=== PATIENT | female | born 1955 | race Caucasian/White ===

== ENCOUNTER 2020-11-14 15:13 | Outpatient (CLI) | payer OTHER, SELFPAY ==
[2020-11-14 20:00] LABS: Erythrocyte Sedimentation Rate 19 mm/hr (0-20)
== END 2020-11-14 15:14 | disposition home or self-care (01) ==
LOC: ANHBWCLAB 15:14
PROVIDERS: PCP Family Medicine; Visit Provider Family Medicine
DX: R51.9 Headache, unspecified (principal)
CPT/HCPCS: 36415; 85652

== ENCOUNTER 2021-06-04 13:46 | Outpatient (CLI) | payer OTHER, SELFPAY ==
[2021-06-04 19:12] LABS: Basophils Absolute Auto 0.1 K/mm3 (0.0-0.1); Basophils Percent Auto 0.6 % (0.2-1.2); Eosinophils Absolute Auto 0.1 K/mm3 (0-0.3); Eosinophils Percent Auto 1.7 % (0-4.4); Hematocrit 41.6 % (37.0-47.0); Hemoglobin 13.6 g/dL (12.0-15.0); Immature Granulocyte Absolute 0.04 K/mm3 (0.00-0.031); Immature Granulocyte Percent A 0.5 % (0-0.5); Lymphocytes Absolute Auto 2.78 K/mm3 (0.9-3.2); Lymphocytes Percent Auto 34.1 % (18.3-44.2); Mean Corpuscular HGB Conc 32.7 g/dl (32-36); Mean Corpuscular Hemoglobin 31.7 pg (26-34); Mean Platelet Volume 10.6 fl (7.4-10.4); Monocytes Absolute Auto 0.6 K/mm3 (0.1-0.6); Monocytes Percent Auto 7.4 % (2.6-8.5); Neutrophils Absolute Auto 4.6 K/mm3 (1.3-6.7); Neutrophils Percent Auto 55.7 % (45.5-73.1); Platelet Count Result 194 k/mm3 (150-375); Red Blood Count 4.29 M/mm3 (4.2-5.4); Red Cell Distribution Width 12.7 % (11.5-14.5); White Blood Count 8.2 K/mm3 (4.5-10.0)
[2021-06-04 19:24] LABS: Alanine Aminotransferase 21 U/L (4-35); Albumin Level 4.6 g/dL (3.5-5.1); Alkaline Phosphatase 46 U/L (38-126); Anion Gap 10 mmol/L (8-16); Aspartate Amino Transferase 22 U/L (14-36); Bilirubin,Total 0.6 mg/dL (0.2-1.3); Blood Urea Nitrogen 25 mg/dL (7-17); Calcium 10.2 mg/dL (8.4-10.2); Carbon Dioxide 30 mmol/L (22-30); Chloride 101 mmol/L (98-107); Cholesterol 156 mg/dL (0-200); Estimated Glomerular Filt Rate > 60; Glucose 251 mg/dL (65-110); HDL Direct 40 mg/dL; Potassium 4.5 mmol/L (3.4-5.0); Sodium 141 mmol/L (137-145); Triglycerides 158 mg/dL (<150)
[2021-06-04 19:36] LABS: LDL Cholesterol Direct 91 mg/dL
[2021-06-04 20:33] LABS: Hemoglobin A1C 8.5 % (<5.7)
[2021-06-04 20:40] LABS: Creatinine Urine 313.4 mg/dL
[2021-06-04 21:21] LABS: MALB Creatinine Ratio 328.5 mg/g (0-30); Microalbumin Urine Random 1029.5 mg/L (0-16.7)
== END 2021-06-04 13:47 | disposition home or self-care (01) ==
PROVIDERS: PCP Family Medicine; Visit Provider Family Medicine
DX: E11.9 Type 2 diabetes mellitus without complications (principal)
CPT/HCPCS: 36415; 80053; 80061; 82043; 83036; 85025

== ENCOUNTER 2021-12-19 09:32 | Outpatient (CLI) | payer OTHER, SELFPAY ==
[2021-12-19 09:44] LABS: Hematocrit 40.1 % (37.0-47.0); Hemoglobin 12.9 g/dL (12.0-15.0); Mean Corpuscular HGB Conc 32.2 g/dl (32-36); Mean Corpuscular Hemoglobin 31.5 pg (26-34); Mean Corpuscular Volume 97.8 fl (80-100); Platelet Count Result 216 k/mm3 (150-375); Red Cell Distribution Width 14.2 % (11.5-14.5); White Blood Count 11.2 K/mm3 (4.5-10.0)
== END 2021-12-19 09:33 | disposition home or self-care (01) ==
LOC: ANHLAB 09:34
PROVIDERS: PCP Family Medicine; Visit Provider Nurse Practitioner Family
DX: R19.5 Other fecal abnormalities (principal)
CPT/HCPCS: 36415; 85027

== ENCOUNTER 2021-12-22 16:53 | Outpatient (NON) | payer OTHER, SELFPAY ==
[2021-12-22 18:52] LABS: IFOB Positive Control Positive; Immunochemical Fecal Occult Bl Negative (N)
== END 2021-12-22 16:54 | disposition home or self-care (01) ==
LOC: ANHLAB 16:54
PROVIDERS: PCP Family Medicine; Visit Provider Family Medicine
DX: R19.7 Diarrhea, unspecified (principal); K62.5 Hemorrhage of anus and rectum
CPT/HCPCS: 82274; 87045; 87427; 89055

== ENCOUNTER 2022-01-08 13:35 | Outpatient (CLI) | payer OTHER, SELFPAY ==
[2022-01-08 19:31] LABS: Creatinine Urine 70.5 mg/dL
[2022-01-08 19:36] LABS: Alanine Aminotransferase 20 U/L (6-35); Albumin Level 4.6 g/dL (3.5-5.1); Alkaline Phosphatase 57 U/L (38-126); Anion Gap 13 mmol/L (8-16); Aspartate Amino Transferase 19 U/L (14-36); Bilirubin,Total 0.3 mg/dL (0.2-1.3); Blood Urea Nitrogen 19 mg/dL (7-17); Calcium 9.4 mg/dL (8.4-10.2); Carbon Dioxide 22 mmol/L (22-30); Chloride 107 mmol/L (98-107); Cholesterol 163 mg/dL (0-200); Estimated Glomerular Filt Rate > 60; Glucose 166 mg/dL (65-110); HDL Direct 50 mg/dL; Potassium 4.1 mmol/L (3.4-5.0); Sodium 142 mmol/L (137-145); Triglycerides 124 mg/dL (<150)
[2022-01-08 19:39] LABS: Hemoglobin A1C 6.3 % (<5.7)
[2022-01-08 19:40] LABS: MALB Creatinine Ratio 81.6 mg/g (0-30); Microalbumin Urine Random 57.5 mg/L (0-16.7)
[2022-01-08 19:49] LABS: LDL Cholesterol Direct 76 mg/dL
== END 2022-01-08 13:36 | disposition home or self-care (01) ==
PROVIDERS: PCP Family Medicine; Visit Provider Family Medicine
DX: E11.9 Type 2 diabetes mellitus without complications (principal)
CPT/HCPCS: 36415; 80053; 80061; 82043; 83036

== ENCOUNTER 2022-02-09 01:24 | Day surgery (SDC) | payer OTHER, SELFPAY ==
[2022-02-02 14:29] VITALS: BMI 22.8
--- NOTE | 2022-02-02 15:25 | PC.NURSE ---
Spoke with Dr. Pike office regarding patients symptoms and need to hold Plavix. Office states he has released her to hold Plavix, informed her of symptoms pt had told to me and Dr. Valdez note regarding SOB, heart rate increase and feeling of heart flip flopping in chest. Pt states she occ. has chest pain with the SOB, symptoms occurred in grocery store after walking around a fair amt. Office staff will discuss with Dr. Barnes for further guidance or okay to proceed with holding Plavix and doing EGD/COLONOSCOPY.
--- NOTE | 2022-02-03 10:56 | PC.NURSE ---
DR. LEWIS'S OFFICE RETURNED FAX AND MESSAGE THAT IT IS OKAY TO HOLD PLAVIX X4 DAYS AND PROCEED WITH PROCEDURES, PT TO FOLLOW UP WITH HIS OFFICE AFTER PROCEDURE PER DR. LEWIS
[2022-02-09 11:52] VITALS: BP 135/71; PULSE 63; RESP 18; TEMP 36.3; O2SAT 100; BMI 22.1
--- NOTE | 2022-02-09 12:02 | WPDANESEPPF ---
Anes - Initial Pre Proc Eval Procedure: Operation Date: 02/09/22 12:30 Proposed Procedures p Esophagogastroduodenoscopy & Colonoscopy - Lukas Johnson MD Date/Time: 02/09/22 12:02 Surgeon: Lukas Johnson MD Pre Op Diagnosis: GERD, Rectal bleeding Patient Data Age: 66 Gender: F Height: 1.7 m Weight: 64.3 kg Last Vital Signs Temp 36.3 C L 02/09/22 11:52 Pulse 63 02/09/22 11:52 Resp 18 02/09/22 11:52 BP 135/71 02/09/22 11:52 Pulse Ox 100 02/09/22 11:52 O2 Del Method Room Air 02/09/22 11:52 Allergies Allergy/AdvReac Type Severity Reaction Status Date / Time No Known Allergies Allergy Verified 02/09/22 11:51 Home Medications Medication Instructions Recorded Confirmed Type clopidogrel 75 mg tablet (Plavix) 75 mg PO DAILY 12/22/19 02/09/22 History nitroglycerin 0.4 mg sublingual 0.4 mg sublingual Q5M PRN Chest 12/22/19 02/09/22 History tablet Pain blood sugar diagnostic (Blood #100 ea 05/22/20 02/09/22 Rx Glucose Test strips) blood-glucose meter #1 ea 05/22/20 02/09/22 Rx gabapentin 300 mg capsule 300 mg PO .qhs #90 caps 11/05/20 02/09/22 Rx atorvastatin 40 mg tablet 40 mg PO DAILY #90 tabs 07/21/21 02/09/22 Rx sertraline 50 mg tablet 50 mg PO DAILY #90 tabs 08/19/21 02/09/22 Rx hydrocortisone 2.5 % topical cream 1 applic RECTAL BID 10 days #30 12/30/21 02/09/22 Rx with perineal applicator grams famotidine 20 mg tablet (Pepcid) 40 mg PO BID #180 tabs 01/12/22 02/09/22 Rx metformin 500 mg tablet 1,000 mg PO BID #360 tabs 01/24/22 02/09/22 Rx metoprolol succinate 25 mg 25 mg PO DAILY 02/02/22 02/09/22 History tablet,extended release 24 hr topiramate 25 mg tablet 25 - 50 mg PO BID PRN Migraine 02/02/22 02/09/22 History Headache Patient hx anesthesia problems: none Family hx anesthesia problems: none Results Review: All pre-operative results and documents have been reviewed as part of the pre-operative evaluation. [facility] Past Medical History Medical History (Updated 02/09/22 @ 12:03 by Brian Hess MD) Anxiety Benign paroxysmal positional vertigo CAD (coronary artery disease) Depression Diabetes GERD (gastroesophageal reflux disease) Headache, common migraine Heart attack Hyperlipidemia Peripheral neuropathy Uncontrolled diabetes mellitus Surgical History Surgical History H/O bilateral breast reduction surgery H/O heart artery stent H/O toe surgery H/O tubal ligation H/O: hysterectomy History of lobectomy of lung Family History Family History Mother Cancer Father Heart disease Sibling Cancer Other Heart disease Social History Social History Smoking status: Never smoker Alcohol intake: never Substance use: never Substance use type: does not use Living arrangements: with family Gender identity (if verbalized by the patient): Female Spiritual care concerns: No Anes - Eval Final PreProcedure Day of Procedure 02/09/22 12:02 Patient weight: normal Heart: regular rate and rhythm Lungs: clear to auscultation and normal air movement Airway: Mallampati scale class II Neurological: alert and oriented Last oral intake: >/= 8 hours ASA classification: III Emergent: no Anesthetic plan: proceed Anesthesia type and monitoring: general GIVS Results Review: All pre-operative results and documents have been reviewed as part of the pre-operative evaluation. Informed Consent: The patient's anesthetic plan and its attendant risks and benefits were discussed with the patient/family/POA. Questions were solicited and answers provided to the satisfaction of the patient/family/POA.
[2022-02-09] MEDS: LACTATED RINGERS 1,000 ML 150 ML IV CONT (12:08)
[2022-02-09 12:09] LABS: Glucose Point of Care 128 mg/dl (65-105)
--- NOTE | 2022-02-09 12:39 | PM.HPGS ---
History of Present Illness History of Present Illness Consent: Risks, benefits, and alternatives have been discussed and questions answered. Patient agrees to proceed with procedure. Chief complaint: GERD, Rectal bleeding Narrative: Thalia Michelle is a 66 year old female with gerd on tums never had egd, also noted blood in stools (last colonoscopy about 3 years ago) Review of Systems Constitutional: Constitutional: Denies headache(s) and Denies weakness Eyes: Eyes: Denies blurry vision ENT: Reports Normal hearing present, Denies headache(s) and Denies neck pain Cardiovascular: Cardiovascular: Denies chest pain and Denies dyspnea Respiratory: Respiratory: Denies dyspnea Gastrointestinal: Gastrointestinal: Reports no additional gastrointestinal complaints Genitourinary: Genitourinary: Denies dysuria Musculoskeletal: Musculoskeletal: Denies neck pain Integumentary/Breasts: Skin/Breast: Denies dry skin Neurologic: Reports Normal hearing present, Denies headache(s) and Denies weakness Psychiatric: Psychiatric: Denies anxiety Endocrine: Endocrine: Denies change in body appearance Hematologic/Lymphatic: Hematologic/Lymphatic: Denies easy bleeding Allergic/Immunologic: Allergic/Immunologic: Denies urticaria PMFSH Past Medical History Medical History (Updated 02/09/22 @ 12:03 by Brian Hess MD) Anxiety Benign paroxysmal positional vertigo CAD (coronary artery disease) Depression Diabetes GERD (gastroesophageal reflux disease) Headache, common migraine Heart attack Hyperlipidemia Peripheral neuropathy Uncontrolled diabetes mellitus Surgical History Surgical History H/O bilateral breast reduction surgery H/O heart artery stent H/O toe surgery H/O tubal ligation H/O: hysterectomy History of lobectomy of lung Family History Family History Mother Cancer Father Heart disease Sibling Cancer Other Heart disease Social History Social History Smoking status: Never smoker Alcohol intake: never Substance use: never Substance use type: does not use Living arrangements: with family Gender identity (if verbalized by the patient): Female Spiritual care concerns: No Meds Home Medications and Allergies Home Medications Medication Instructions Recorded Confirmed Type clopidogrel 75 mg tablet (Plavix) 75 mg PO DAILY 12/22/19 02/09/22 History nitroglycerin 0.4 mg sublingual 0.4 mg sublingual Q5M PRN Chest 12/22/19 02/09/22 History tablet Pain blood sugar diagnostic (Blood #100 ea 05/22/20 02/09/22 Rx Glucose Test strips) blood-glucose meter #1 ea 05/22/20 02/09/22 Rx gabapentin 300 mg capsule 300 mg PO .qhs #90 caps 11/05/20 02/09/22 Rx atorvastatin 40 mg tablet 40 mg PO DAILY #90 tabs 07/21/21 02/09/22 Rx sertraline 50 mg tablet 50 mg PO DAILY #90 tabs 08/19/21 02/09/22 Rx hydrocortisone 2.5 % topical cream 1 applic RECTAL BID 10 days #30 12/30/21 02/09/22 Rx with perineal applicator grams famotidine 20 mg tablet (Pepcid) 40 mg PO BID #180 tabs 01/12/22 02/09/22 Rx metformin 500 mg tablet 1,000 mg PO BID #360 tabs 01/24/22 02/09/22 Rx metoprolol succinate 25 mg 25 mg PO DAILY 02/02/22 02/09/22 History tablet,extended release 24 hr topiramate 25 mg tablet 25 - 50 mg PO BID PRN Migraine 02/02/22 02/09/22 History Headache Allergies Allergy/AdvReac Type Severity Reaction Status Date / Time No Known Allergies Allergy Verified 02/09/22 11:51 Vital Signs Vital Signs - 24 hr 02/09/22 11:52 Temperature 97.3 F L Pulse Rate 63 Respiratory Rate 18 Blood Pressure 135/71 Pulse Oximetry 100 Oxygen Delivery Room Air Exam Const: General: comfortable and no acute distress HENMT: General nose exam: Normal nares present Eyes: General: appearance normal, both e
--- NOTE | 2022-02-09 13:28 | SUR.OPER ---
EGD START 1254, END 1301. COLONOSCOPY START 1306, END 1326.
[2022-02-09 13:31] VITALS: BP 116/77; PULSE 57; RESP 19; O2SAT 100
[2022-02-09 13:41] VITALS: BP 141/79; PULSE 78; RESP 20; O2SAT 100
[2022-02-09 13:51] VITALS: BP 157/84; PULSE 78; RESP 20; O2SAT 100
== END 2022-02-09 14:00 | disposition home or self-care (01) ==
PROVIDERS: PCP Family Medicine; Visit Provider Internal Medicine Gastroenterology
PROC: 0DJ08ZZ Inspection of Upper Intestinal Tract, Via Natural or Artificial Opening Endoscopic (ICD-10-PCS; CPT 43235; principal; 2022-02-09 12:30)
DX: K92.1 Melena (principal); K64.8 Other hemorrhoids; K63.5 Polyp of colon; K62.3 Rectal prolapse; K29.50 Unspecified chronic gastritis without bleeding; K29.70 Gastritis, unspecified, without bleeding; K31.7 Polyp of stomach and duodenum; F41.9 Anxiety disorder, unspecified; I25.10 Atherosclerotic heart disease of native coronary artery without angina pectoris; E11.9 Type 2 diabetes mellitus without complications; K21.9 Gastro-esophageal reflux disease without esophagitis; E78.5 Hyperlipidemia, unspecified; I25.2 Old myocardial infarction; F32.A Depression, unspecified; Z79.84 Long term (current) use of oral hypoglycemic drugs
CPT/HCPCS: 45385; 43239; 43251; 82948; 88305; J2704; J7120

== ENCOUNTER 2022-04-13 14:54 | Outpatient (CLI) | payer OTHER, SELFPAY ==
--- NOTE | ~2022-04-13 | XR_ITS ---
EXAMINATION: XR abdomen obstructive series DATE: 04/13/2022 15:13 INDICATION: Right lower abdominal pain TECHNIQUE: Supine and upright views of the abdomen. FINDINGS: No prior studies for comparison. The visualized lung parenchyma is normal.. There is a nonobstructive bowel gas pattern. There is feca l impaction of the colon. There is no free air. There is dextroscoliosis of the lumbar spine. There is osteoarthritis of the hips. IMPRESSION: 1. Fecal impaction of the colon. Reviewed, dictated and finalized at location B.
[2022-04-13 19:10] LABS: Appearance Urine Slightly Cloudy (Clear); Bilirubin Urine Negative (Negative); Blood Urine Negative (Negative); Color Urine Yellow (Yellow); Glucose Urine UA Negative (Negative); Ketones Urine Negative (Negative); Leukocyte Esterase Ur 1+ LEU/UL (NEGATIVE); Nitrate Urine Negative (Negative); Protein Urine 1+ mg/dL (Negative); Urobilinogen Urine 0.2 mg/dL (<2.0)
[2022-04-13 19:20] LABS: Bacteria Urine 1+ /hpf; Calcium Oxalate Crystals Urine Present /hpf; Squamous Epithelial Cell Urine Rare /hpf (Few); WBC Urine 51-75 /hpf (0-3)
[2022-04-13 19:28] LABS: Add Urine Microscopic? YES
== END 2022-04-13 14:55 | disposition home or self-care (01) ==
LOC: ANHBWCLAB 14:55
PROVIDERS: PCP Family Medicine; Visit Provider Family Medicine
DX: N39.0 Urinary tract infection, site not specified (principal); R10.9 Unspecified abdominal pain
CPT/HCPCS: 74019; 81001; 87077; 87086; 87186

== ENCOUNTER 2022-08-24 14:52 | Outpatient (CLI) | payer OTHER, SELFPAY ==
[2022-08-24 20:13] LABS: Alanine Aminotransferase 18 U/L (6-35); Albumin Level 4.5 g/dL (3.5-5.1); Alkaline Phosphatase 49 U/L (38-126); Anion Gap 9 mmol/L (8-16); Aspartate Amino Transferase 31 U/L (14-36); Bilirubin,Total 0.6 mg/dL (0.2-1.3); Blood Urea Nitrogen 20 mg/dL (7-17); Calcium 9.3 mg/dL (8.4-10.2); Carbon Dioxide 26 mmol/L (22-30); Chloride 104 mmol/L (98-107); Cholesterol 167 mg/dL (0-200); Estimated Glomerular Filt Rate 50; Glucose 153 mg/dL (65-110); HDL Direct 38 mg/dL; Sodium 139 mmol/L (137-145); Triglycerides 163 mg/dL (<150)
[2022-08-24 20:24] LABS: LDL Cholesterol Direct 82 mg/dL
[2022-08-24 21:49] LABS: Basophils Absolute Auto 0.1 K/mm3 (0.0-0.1); Basophils Percent Auto 0.7 % (0.2-1.2); Eosinophils Absolute Auto 0.1 K/mm3 (0-0.3); Eosinophils Percent Auto 1.7 % (0-4.4); Hemoglobin 13.1 g/dL (12.0-15.0); Immature Granulocyte Absolute 0.03 K/mm3 (0.00-0.031); Immature Granulocyte Percent A 0.4 % (0-0.5); Lymphocytes Absolute Auto 2.37 K/mm3 (0.9-3.2); Lymphocytes Percent Auto 31.3 % (18.3-44.2); Mean Corpuscular Hemoglobin 31.6 pg (26-34); Mean Corpuscular Volume 98.8 fl (80-100); Monocytes Absolute Auto 0.6 K/mm3 (0.1-0.6); Monocytes Percent Auto 7.7 % (2.6-8.5); Neutrophils Absolute Auto 4.4 K/mm3 (1.3-6.7); Neutrophils Percent Auto 58.2 % (45.5-73.1); Platelet Count Result 217 k/mm3 (150-375); Red Blood Count 4.15 M/mm3 (4.2-5.4); Red Cell Distribution Width 13.2 % (11.5-14.5); White Blood Count 7.6 K/mm3 (4.5-10.0)
[2022-08-25 17:39] LABS: Hemoglobin A1C 6.3 % (<5.7)
== END 2022-08-24 14:53 | disposition home or self-care (01) ==
PROVIDERS: PCP Family Medicine; Visit Provider Family Medicine
DX: E11.9 Type 2 diabetes mellitus without complications (principal); I25.10 Atherosclerotic heart disease of native coronary artery without angina pectoris
CPT/HCPCS: 36415; 80053; 80061; 83036; 85025

== ENCOUNTER 2023-06-25 14:01 | Outpatient (CLI) | payer OTHER, SELFPAY ==
[2023-06-25 19:45] LABS: Appearance Urine Cloudy (Clear); Bacteria Urine 4+ /hpf; Bilirubin Urine Negative (Negative); Blood Urine Negative (Negative); Color Urine Yellow (Yellow); Glucose Urine UA Negative (Negative); Ketones Urine Negative (Negative); Leukocyte Esterase Ur 3+ LEU/UL (NEGATIVE); Need Manual Microscopic Reviewed; Nitrate Urine Positive (Negative); Protein Urine Trace mg/dL (Negative); RBC Urine 0-2 /hpf (0-2); Squamous Epithelial Cell Urine Few /hpf (Few); Urobilinogen Urine 0.2 mg/dL (<2.0); WBC Urine 51-100 /hpf (0-3); pH Urine 5.5 (5.0-9.0)
[2023-06-25 19:51] LABS: Add Urine Microscopic? YES
== END 2023-06-25 14:02 | disposition home or self-care (01) ==
LOC: ANHBWCLAB 14:02
PROVIDERS: PCP Nurse Practitioner Adult Health; Visit Provider Nurse Practitioner Adult Health
DX: R39.9 Unspecified symptoms and signs involving the genitourinary system (principal)
CPT/HCPCS: 81001

== ENCOUNTER 2023-10-28 10:36 | Outpatient (CLI) | payer OTHER, SELFPAY ==
--- NOTE | ~2023-10-28 | XR_ITS ---
Supine and upright views of the abdomen Clinical history: Abdominal pain Findings: Bowel gas pattern is nonspecific. No evidence for obstruction or free air. No abnormal mass lesion or calcification is seen. Osseous structures are intact. Impression: No significant abnormality is seen. Reviewed, dictated and finalized at [facility]. Impression: No significant abnormality is seen.
[2023-10-28 19:17] LABS: Anion Gap 7 mmol/L (4-12); Blood Urea Nitrogen 35 mg/dL (7-17); Calcium 9.9 mg/dL (8.4-10.2); Carbon Dioxide 30 mmol/L (22-30); Chloride 106 mmol/L (98-107); Cholesterol 129 mg/dL (0-200); Estimated Glomerular Filt Rate 45; Glucose 132 mg/dL (65-110); HDL Direct 36 mg/dL; Potassium 4.8 mmol/L (3.4-5.0); Sodium 143 mmol/L (137-145); Triglycerides 98 mg/dL (<150)
[2023-10-28 19:28] LABS: LDL Cholesterol Direct 67 mg/dL
[2023-10-28 21:02] LABS: Creatinine Urine 75.7 mg/dL
[2023-10-28 21:19] LABS: Microalbumin Urine Random 49.2 mg/L (0-16.7)
== END 2023-10-28 10:37 | disposition home or self-care (01) ==
PROVIDERS: PCP Nurse Practitioner Adult Health; Visit Provider Nurse Practitioner Adult Health
DX: R10.9 Unspecified abdominal pain (principal); E11.9 Type 2 diabetes mellitus without complications
CPT/HCPCS: 36415; 74018; 80048; 80061; 82043; 83036

== ENCOUNTER 2024-04-27 11:29 | Outpatient (CLI) | payer OTHER, SELFPAY ==
[2024-04-27 19:53] LABS: Hematocrit 31.4 % (37.0-47.0); Hemoglobin 9.9 g/dL (12.0-15.0); Mean Corpuscular HGB Conc 31.5 g/dl (32-36); Mean Corpuscular Hemoglobin 30.7 pg (26-34); Mean Corpuscular Volume 97.5 fl (80-100); Mean Platelet Volume 10.8 fl (7.4-10.4); Platelet Count Result 217 k/mm3 (150-375); Red Blood Count 3.22 M/mm3 (4.2-5.4); Red Cell Distribution Width 14.3 % (11.5-14.5); White Blood Count 8.6 K/mm3 (4.5-10.0)
[2024-04-27 20:01] LABS: Add Urine Microscopic? YES; Appearance Urine Clear (Clear); Bacteria Urine None Seen /hpf; Bilirubin Urine Negative (Negative); Blood Urine Negative (Negative); Color Urine Yellow (Yellow); Glucose Urine UA Negative (Negative); Ketones Urine Negative (Negative); Leukocyte Esterase Ur 3+ LEU/UL (Negative); Nitrate Urine Negative (Negative); Non Pathogenic Casts 0-2; Protein Urine 1+ mg/dL (Negative); RBC Urine 0-2 /hpf (0-2); Specific Grav Ur 1.018 (1.001-1.035); Squamous Epithelial Cell Urine Few /hpf (Few); WBC Urine 21-50 /hpf (0-3)
[2024-04-27 20:11] LABS: Alanine Aminotransferase 15 U/L (6-35); Albumin Level 4.5 g/dL (3.5-5.1); Alkaline Phosphatase 61 U/L (38-126); Anion Gap 6 mmol/L (4-12); Aspartate Amino Transferase 35 U/L (14-36); Bilirubin,Total 0.4 mg/dL (0.2-1.3); Blood Urea Nitrogen 44 mg/dL (7-17); Calcium 9.5 mg/dL (8.4-10.2); Carbon Dioxide 31 mmol/L (22-30); Chloride 103 mmol/L (98-107); Cholesterol 175 mg/dL (0-200); Estimated Glomerular Filt Rate 28; Glucose 190 mg/dL (65-110); HDL Direct 47 mg/dL; Sodium 140 mmol/L (137-145); Triglycerides 99 mg/dL (<150)
[2024-04-27 20:22] LABS: LDL Cholesterol Direct 86 mg/dL
[2024-04-27 21:01] LABS: Creatinine Urine 138.5 mg/dL
[2024-04-27 21:02] LABS: MALB Creatinine Ratio 75.5 mg/g (0-30); Microalbumin Urine Random 104.5 mg/L (0-16.7)
[2024-04-27 21:11] LABS: Free T4 Free Thyroxine 1.37 ng/mL (0.78-2.19); Vitamin D 25 Hydroxy 56.4 ng/mL
[2024-04-27 22:08] LABS: Iron 63 ug/dL (37-170)
[2024-04-27 22:19] LABS: Percent Iron Saturation 22 % (20-50)
== END 2024-04-27 11:30 | disposition home or self-care (01) ==
LOC: ANHBWCLAB 11:30
PROVIDERS: PCP Nurse Practitioner Adult Health; Visit Provider Nurse Practitioner Adult Health
DX: E11.9 Type 2 diabetes mellitus without complications (principal); R42 Dizziness and giddiness; E55.9 Vitamin D deficiency, unspecified; R23.1 Pallor; R25.1 Tremor, unspecified
CPT/HCPCS: 36415; 80053; 80061; 81001; 82043; 82306; 82565; 82607; 82728; 83036; 83540; 83550; 83735; 84439; 84443; 85027

== ENCOUNTER 2024-08-24 13:46 | Outpatient (CLI) | payer OTHER, SELFPAY ==
--- OUTSIDE RECORDS SUMMARY | 2024-08-24 13:52 | XMS_ITS | Clinical Summary ---
Author Organization [facility] Address [address] [address] Phone Care Team Providers Care Gambling Box Person Name Role Phone [employer] Matthew SWAIN Primary Care Provider [phone] Allergies No known active allergies Medications Glucose Blood (ACURA BLOOD GLUCOSE TEST) Strip Use as directed. Test daily 100 Strip 3 11/24/19 17 Active Magnesium 250 MG Tablet Take 1 Tab by mouth nightly. Active carvedilol (COREG) 6.25 MG Tablet Take 6.25 mg by mouth 2 times daily. Active clopidogrel (PLAVIX) 75 MG Tablet Take 75 mg by mouth daily. Active Aspirin 81 MG Tablet Take 81 mg by mouth daily. Active atorvastatin (LIPITOR) 40 MG TabletIndications:Type 2 diabetes mellitus with diabetic polyneuropathy, without long-term current use of insulin (HCC),Pure hypercholesterolemia Take 1 Tab by mouth daily. 90 Tab 3 04/11/20 19 Active DULoxetine (CYMBALTA) [address] Particles Take 1 Cap by mouth daily. 90 Cap 2 04/11/20 19 Active meclizine (ANTIVERT) 25 MG Tablet Take 1 Tab by mouth 3 times daily as needed for Dizziness. 30 Tab 08/25/19 20 Active HYDROcodone-acetaminoph en (NORCO) 5-325 MG Tablet Take 1 Tab by mouth every 6 hours as needed for Moderate or more severe pain. 10 Tab 10/12/19 20 Active nitroGLYCERIN (NITROSTAT) 0.4 MG SL Tablet 1 Tab by Sublingual route every 5 minutes as needed for Chest pain. 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 90 Cap 11/17/19 20 Active metFORMIN (GLUCOPHAGE) 500 MG Tablet TAKE TWO TABLETS BY MOUTH TWICE A DAY WITH MEALS 360 Tab 12/12/19 20 Active glimepiride (AMARYL) 4 MG Tablet TAKE ONE TABLET BY MOUTH EVERY MORNING 90 Tab 02/22/20 20 Active Active Problems Problem Noted Date Diagnosed Date Diabetic ulcer of toe of lef t foot associated with type 2 diabetes mellitus, with fat layer exposed 11/04/2017 Elevated hemoglobin A1c 03/28/2017 Type 2 diabetes mellitus wit h diabetic polyneuropathy, without long-term current use of insulin 12/15/2016 Colon cancer screening 08/27/2016 Depression 08/27/2016 Pure hypercholesterolemia 07/01/2016 Chronic left shoulder pain 07/01/2016 Chronic right-sided low back pain without sciati ca 02/05/2016 Resolved Problems Problem Noted Date Diagnosed Date Resolved Date Subacute osteomyelitis of left foot 11/25/2017 01/13/2018 Osteomyelitis of foot, acute 11/25/2017 01/13/2018 Cellulitis of left foot 11/22/201711/17 Cellulitis and abscess of foot 11/05/2017 12/08/2017 Cellulitis of foot 10/30/2017 8 Type 2 diabetes mellitus without complication 07/01/20 16 12/15/2016 Immunizations Immunization Administration Dates Next Due Influenza Vaccine greater than 3 yrs 06/18/2014 Influenza Vaccine, Quadrivalent, PF 08/15/2019,0 10/31/2017,04/02/2015 Influenza, Seasonal, Injectable, Undefined 06/18 Family History Medical History Relation Name Comments Diabetes Brother Diabetes Father Heart Disease Father Cancer Mother pancreatic Relation Name Status Comments Brother Father Mother Social History Tobacco Use Types Packs/Day Years Used Date Smoking Tobacco: Never Smokeless Tobacco: Never Tobacco Cessation:Counseling Given: No Alcohol Use Standard Drinks/Week Comments Yes 1 (1 standard drink = 0.6 oz pur e alcohol) Very rare. PHQ-2 Answer Date Recorded Total Score - Questions 1-9 07/2019 Comments No Sex and Gender Information Value Date Recorded Sex Assigned at Not on file Legal Sex Female 11:13 PM CDT Gender Identity Not on file Sexual Orientation Not on file Last Filed Vital Signs Vital Sign Reading Time Taken Comments Blood Pressure 110/64 11/17/2019 3:44 PM CDT Pulse 96 11/17/2019 3:44 PM CDT Temperature 36.4 C (97.6 F) 11/17/2019 3:44 PM CDT Respiratory Rate 16 11/17/2019 3:44 PM CDT Oxygen Saturation 98% 11/17/2019 3:44 PM CDT Inhaled Oxygen Concentration - - Weight 70.7 kg (155 lb 12.8 oz) 11/17/2019 3:44 PM CDT Height 168.9 cm (5' 6.5 ) 11/17/2019 3:44 PM CDT Body Mass Index 24.77 11/17/2019 3:44 PM CDT Plan of Treatment Health Maintenance Due Date Last Done Comments DEXA Bone Density 1954 Diabetes: Eye Exam 1955 Hepatitis C Virus (HCV) Screening 1954 TdaP Immunization 1954 Pneumococcal Immunization (50+ years) (1 of 2 - PCV) 1973 Cologuard 2004 Immunochemical Fecal Occult Blood 2004 Mammogram 2004 Zoster Immunization (1 of 2) 2004 Respiratory Syncytial Virus (RSV) Immunization (Adult) (1 - Risk 60-74 years 1-dose series) 2014 Colonoscopy 07/10/2017 01/08/2017 Colorectal Cancer Screening 07/10/2017 Diabetes: Hemoglobin A1c 07/04/2020 020, 11/17/2019, 08/16/2019, Additional history exists Diabetes: Nephropathy Screening 08/25/2020 08/25/2019, 04/03/2019, 04/03/2019, Additional history exists Diabetes: Foot Exam 11/16/2020 11/17/2019, 11/17/2019, 11/22/2017, Additional history exists Influenza Immunization (#1) 03/19/202407/20, 10/31/2017, 04/02/2015, Additional history exists SARS-COV-2 Immunization ( season) 2024 02/04/2021, 01/15/2021 01/08/2017 Hepatitis B Immunization Aged Out No longer eligible based on patient's age to complete this topic Meningococcal Immunization (ACWY) Aged Out No longer eligible based on patient's age to complete this topic Rotavirus Immunization Aged Out No lo nger eligible based on patient's age to complete this topic Procedures Procedure Name Priority Date/Time Associated Diagnosis Comments POCT GLYCOSYLATED HEMOGLOBIN Routine 11/17/2019 4:26 PM CDT Type 2 diabetes mellitus with diabetic polyneuropathy, without long-term current use of insulin (HCC) Skin ulcer of right foot, limited to breakdown of skin (HCC) CMP (COMPREHENSIVE METABOLIC PANEL) STAT 08/25/2019 4:15 PM TITLE I COORDINATOR from Last 3 Months or Most Recently Relevant to Health Maintenance Results * (ABNORMAL) POCT GLYCOSYLATED HEMOGLOBIN (11/17/2019 4:26 PM CDT) HGB-A1C 8.3(A) 4 - 6 11/17/2019 4:2 6 PM CDT Iraida Auguste APRN, AGRICULTURIST POINT OF CARE TESTIN G (MANUAL) Final Result * (ABNORMAL) CMP (Comprehensive Metabolic Panel) (08/25/2019 4:15 PM TITLE I COORDINATOR) SODIUM 127(L) 136 - 144 mmol/L 08/25/2019 5:26 PM TITLE I COORDINATOR [facility] POTASSIUM 4.2 3.5 - 5.1 mmol/L 08/25/2019 5:26 PM TITLE I COORDINATOR [facility] CHLORIDE 89(L) 100 - 110 mmol/L 08/25/2019 5:26 PM TITLE I COORDINATOR [facility] CO2, VENOUS 24 22 - 32 mmol/L 08/25/2019 5:26 PM [facility] ANION GAP 18.2 8.0 - 20.0 mmol/L 08/25/2019 5:26 PM [facility] GLUCOSE 409(HH) 70 - 99 mg/dL 08/25/2019 5:26 PM [facility] BUN 21 8 - 23 mg/dL 08/25/2019 5:26 PM [facility] CREATININE, BLOOD 0.86 0.60 - 1.10 mg/dL 08/25/2019 5:26 PM [facility] BUN/CREATININE RATIO 24(H) 12 - 20 ratio 08/25/2019 5:26 PM [facility] TOTAL PROTEIN 8.3 6.0 - 8.3 g/dL 08/25/2019 5:26 PM [facility] ALBUMIN 4.5 3.5 - 5.2 g/dL 08/25/2019 5:26 PM [facility] Comment: The colormetric methods used for the determination of Albumin may lead to falsely elevated test results in patients suffering from renal failure or insufficiency due to interference with other proteins. A/G RATIO 1.2 1.0 - 2.0 08/25/2019 5:26 PM [facility] CALCIUM 10.0 8.9 - 10.3 mg/dL 08/25/2019 5:26 PM [facility] T BILI 0.6 <=1.2 mg/dL 08/25/2019 5:26 PM [facility] SGOT (AST) 14 <=32 U/L 08/25/2019 5:26 PM [facility] SGPT (ALT) 13 <=33 U/L 08/25/2019 5:26 PM [facility] ALKALINE PHOSPHATASE 64 35 - 105 U/L 08/25/2019 5:26 PM [facility] GFR, EST. NONAFRICAN >60 >=60 08/25/2019 5:26 PM [facility] GFR, EST. >60 >=60 020 5:26 PM [facility] Comment: Creatinine Clearance is the preferred criteria for selecting drug dose adjustments in renally impaired patients. The GFR is provided as additional pertinent clinical information. GFR is reported in mL/min/1.73 sq m. Blood specimen (specimen) Butterfly Puncture / Unknown 08/25/2019 4:15 PM TITLE I COORDINATOR 08/25/2019 4:42 PM TITLE I COORDINATOR us Denys Aguiar MD CHEMISTRY ORDERABLES Final Resu lt [facility] [address] [place] [address] from Last 3 Months or Most Recently Relevant to Health Maintenance Advance Directives * Full Code (Latest Code Status on File) Date Activated Date Inactivated Comments 12/03/2017 2:58 PM 01/21/2018 9:25 PM * Full Code Date Activated Date Inactivated Comments 11/22/2017 6:11 PM 11/25/2017 11:48 PM CPR-Full Humble atment: FULL ARREST: Attempt Resuscitation/CPR wit intubation and mechanical ventilation. PRE-ARREST: Use entire range of life support measures to stabilize the patient. * Full Code Date Activated Date Inactivated Comments 10/30/2017 5:31 PM 11/05/2017 6:38 PM CPR-Full Humble atment: FULL ARREST: Attempt Resuscitation/CPR wit intubation and mechanical ventilation. PRE-ARREST: Use entire range of life support measures to stabilize the patient. Care Teams Gambling Box Person Relationship Specialty Start Date End Date Denys Stern DO [address] [place] [address] PCP - General Family Medicine 01/27/21
--- OUTSIDE RECORDS SUMMARY | 2024-08-24 13:52 | XMS_ITS | Clinical Summary ---
Author Organization [facility] Address [address] [place] [address] Care Team Providers Care Accounts Receivable Supervisor Name Role Phone Teri Tirado NP Primary Care Provider [phone] Allergies Active Allergy Reactions Criticality Noted Date Comments Topiramate Other (See comments) Low 10/11/2023 Nausea and blurred vision Medications aspirin 81 mg tablet Take 1 tablet (81 mg total) by mouth daily. 30 tablet 6 01/25/20 18 Active metFORMIN (GLUCOPHAGE) 1,000 mg tablet Take 1 tablet (1,000 mg total) by mouth 2 (two) times a day with meals 60 tablet 11/09/19 21 Active sertraline (ZOLOFT) 25 mg tablet Take 1 tablet (25 mg total) by mouth daily 06/04/20 21 Active famotidine (PEPCID) 20 mg tablet Take 1 tablet (20 mg total) by mouth daily 06/26/20 21 Active atorvastatin (LIPITOR) 80 mg tablet Take 1 tablet (80 mg total) by mouth daily 30 tablet 11 07/30/19 22 Active nitroglycerin (NITROSTAT) 0.[address] 1 tablet (0.4 mg total) under the tongue every 5 (five) minutes as needed for chest pain May repeat dose q 5 min, up to 3 doses total 25 tablet 3 09/11/19 23 Active gabapentin (NEURONTIN) 300 mg capsuleIndicati ons:Numbness and tingling of lower extremity TAKE 1 CAPSULE BY MOUTH THREE TIMES A DAY 90 capsule 3 02/07/20 24 Active clopidogreL (PLAVIX) 75 mg tablet TAKE 1 TABLET BY MOUTH EVERY DAY 90 tablet 3 04/10/20 24 Active traMADoL (ULTRAM) 50 mg tabletIndicatio ns:Sprain of anterior talofibular ligament of right ankle, initial encounter,Right foot sprain, initial encounter Take 1 tablet (50 mg total) by mouth every 8 (eight) hours as needed for pain P.r.n. pain not relieved by meloxicam alone. Take 500 mg of acetaminophen with each dose. Take with food. Collaborating physician Denys Cota MD 15 tablet 08/18/19 25 Active meloxicam (MOBIC) 15 mg tabletIndicatio ns:Sprain of anterior talofibular ligament of right ankle, initial encounter,Right foot sprain, initial encounter Take 1 tablet (15 mg total) by mouth daily P.r.n. pain and swelling. Take with food. Collaborating physician Denys Cota MD 30 tablet 08/18/19 25 026 Active cephalexin (KEFLEX) 250 mg capsuleIndicati ons:Cellulitis of great toe of left foot Take 1 capsule (250 mg total) by mouth 3 (three) times a day for 10 days 30 capsule 08/04/19 25 025 Active Problems Problem Noted Date Diagnosed Date Sprain of anterior talofibular ligament of right ankle 08/18/2024 Right foot sprain, initial encounter 08/18/2024 Fall from slipping on ice 08/18/2024 CAD S/P percutaneous coronary angioplasty 2023 Bilateral carpal tunnel syndrome 10/11/2023 Moderate malnutrition (CMS/HCC) 10/04/2023 RLQ abdominal pain 10/04/2023 Syncope 10/03/2023 Renal impairment 10/03/2023 Elevated d-dimer 10/03/2023 Lactic acidosis 10/03/2023 Metabolic acidosis, increased anion gap 10/03/19 24 Normocytic anemia 10/03/2023 Cholelithiasis 10/03/2023 Transient alteration of awareness 10/02/2023 Numbness and tingling of upp er and lower extremities of both sides 03/18/2021 Occipital neuralgia of left side 01/17/2021 Coronary artery disease invo lving table [place] coronary artery of [place] heart without angina pectoris 09/26/2020 Assessment & Plan (09/26/2020 12:32 PM SCANNING SUPERVISOR): A plan to further investigate the patient's chest discomfort with Cardiolite treadmill stress testing. She will continue with aggressive secondary risk factor modification we will reach evaluate her known lipid abnormalities with more recent lipid profile. Bilateral carotid artery stenosis 09/26/2020 Assessment & Plan (09/26/2020 12:32 PM SCANNING SUPERVISOR): It has been a number of years since her carotids have been re-evaluated. We will do so with carotid duplex. Dyspnea on exertion 09/26/2020 Assessment & Plan (09/26/2020 12:31 PM SCANNING SUPERVISOR): A plan to further investigate the patient's dyspnea with activity in light of her known coronary disease and diabetes with assessment of filling pressures utilizing echocardiography and proBNP value as well as chest x-ray. We will also obtain Cardiolite treadmill stress testing. 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 01/22/2018 Stage 2 chronic kidney disease 01/22/2018 Depression 01/22/2018 Encounters Date Type Department Care Team Description 08/18/2024 3:24 PM SCANNING SUPERVISOR - 08/18/2024 4:14 PM SCANNING SUPERVISOR Emergency [facility] Emergency Department [address] [place] [id number] Sprain of anterior talofibular ligament of right ankle, initial encounter (Primary Dx); Right foot sprain, initial encounter; Fall due to slipping on ice or snow, initial encounter Discharge Disposition: Discharge to home or self care 08/18/2024 1:27 PM SCANNING SUPERVISOR - 08/18/2024 11:59 PM SCANNING SUPERVISOR Hospital Encounter [facility] [address] [place] [address] Stage 3 chronic kidney disease, unspecified whether stage 3a or 3b CKD (HCC); Acute renal failure, unspecified acute renal failure type (HCC); Type 2 diabetes mellitus without complication, unspecified 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) Discharge Disposition: Discharge to home or self care 08/10/2024 Telephone [facility] at [address] [place] [phone] Binta Coyle MA 08/10/2024 Telephone [facility] at [address] [place] [phone] Janet Feldman MA 08/04/2024 5:05 PM SCANNING SUPERVISOR - 08/04/2024 11:59 PM SCANNING SUPERVISOR Hospital Encounter [address] [address] Cellulitis of great toe of left foot; Diabetic ulcer of other part of left foot associated with diabetes mellitus of other type, unspecified ulcer stage (HCC) Discharge Disposition: Discharge to home or self care 08/04/2024 4:15 PM SCANNING SUPERVISOR Office Visit [facility] at [address] [place] [phone] Maria Elena Kyle NP Cellulitis of great toe of left foot (Primary Dx); Diabetic ulcer of other part of left foot associated with diabetes mellitus of other type, unspecified ulcer stage (HCC) 07/03/2024 Telephone [facility] at [address] [place] [phone] Mee Alonzo MA 07/03/2024 Orders Only [facility] at [address] [place] [phone] Davis Jerome MD LESLYE (acute kidney injury) (HCC) (Primary Dx) from Last 3 Months Surgical History Surgery Date Site/Laterality Comments OTHER SURGICAL HISTORY Tibal REDUCTION MAMMOPLASTY Breast Reduction TOTAL ABDOMINAL HYSTERECTOMY Hysterectomy, total CARDIAC CATHETERIZATION 07/19/2017 - 07/18/2018 Medical History Medical History Date Comments Chest pain Syncope Shortness of breath Diabetes mellitus (HCC) Coronary artery disease Carotid artery disease (HCC) Ventricular tachycardia (HCC) Family History Medical History Relation Name Comments Heart disease Brother 1 Heart disease Brother 2 Other Brother 2 Alive and well; Coronary artery disease Father Charlotte nary artery disease; Heart disease Father Heart disease Father's Brother Heart disease Father's Sister Heart disease Maternal Grandfather Heart disease Maternal Grandmother Heart disease Mother Heart disease Mother's Brother Heart disease Mother's Sister Heart disease Paternal Grandfather Heart disease Paternal Grandmother Heart disease Sister 1 Heart disease Sister 2 Other Sister 2 Alive and well; Relation Name Status Comments Brother 1 Alive Brother 2 Father Father's Brother Father's Sister Maternal Grandfather Maternal Grandmother Mother Mother's Brother Mother's Sister Paternal Grandfather Paternal Grandmother Sister 1 Alive Sister 2 Social History Tobacco Use Types Packs/Day Years Used Date Smoking Tobacco: Never Smokeless Tobacco: Never Tobacco Cessation:Counseling Given: Not Answered Alcohol Use Standard Drinks/Week Comments No 0 (1 standard drink = 0.6 oz pur e alcohol) AUDIT-C Answer Date Recorded Q1: How often do you have a drink containing alcohol? Monthly or less 10/03/2023 Q2: How many drinks containi ng alcohol do you have on a typical day when you are drinking? Patient does not drink Q3: How often do you have si x or more drinks on one occasion? Never 10/03/2023 Personal Safety Answer Date Recorded Have you ever been in or are you currently in a harmful physical or emotional relationship or is someone making you feel afraid or unsafe? Denies 08/18/2024 Comments No Sex and Gender Information Value Date Recorded Sex Assigned at Not on file Legal Sex Female 12:36 PM SCANNING SUPERVISOR Gender Identity Not on file Sexual Orientation Not on file Obstetrics History Last Filed Vital Signs Vital Sign Reading Time Taken Comments Blood Pressure 109/56 08/18/2024 2:16 PM SCANNING SUPERVISOR Pulse 77 08/18/2024 2:16 PM SCANNING SUPERVISOR Temperature 36.7 C (98 F) 08/18/2024 2:16 PM SCANNING SUPERVISOR Respiratory Rate 16 08/18/2024 2:16 PM SCANNING SUPERVISOR Oxygen Saturation 98% 08/18/2024 2:16 PM SCANNING SUPERVISOR Inhaled Oxygen Concentration - - Weight 65.8 kg (145 lb) 08/18/2024 2:16 PM SCANNING SUPERVISOR Height 170.2 cm (5' 7 ) 08/04/2024 4:18 PM SCANNING SUPERVISOR Body Mass Index 22.71 08/04/2024 4:18 PM SCANNING SUPERVISOR Plan of Treatment Health Maintenance Due Date Last Done Comments Breast Cancer Screening-Mammogram 1954 Colon Cancer Screening-Colonoscopy 1954 Depression Screening 1954 Hepatitis C Screening 1954 Osteoporosis Screening-Bone Density Scan 1954 Dilated Eye Exam 1954 Foot Exam 1954 Pneumococcal vaccine 65+ (1 of 2 - PCV) 1960 DTaP/Tdap/Td Vaccine (1 - Tdap) 1965 Hepatitis B Screening 1972 Zoster Vaccine (1 of 2) 2004 Well Visit 65+ 12/03/2019 Albumin Creatinine Ratio, Urine 01/02/2021 0 Lipid Panel 08/25/2022 08/25/2021, 03/07/2020, 01/03/2020, Additional history exists Influenza Vaccine (#1) 2024 0, 10/31/2017, 04/02/2015, Additional history exists Hemoglobin A1C 08/16/2024 02/14/2024, 01/03/2020 Fall Risk Assessment 02/14/2025 02/15/2024 eGFR 04/28/2025 04/28/2024, 01/18, 02/09/2024, Additional history exists Medical Devices Implanted Type Area Calender Runner Device Identifier Shelf Expiration Date Model / Serial / Lot [employer] Lacie Synergy Xd Monorail 2.75mm 24mm 144cm Delivery System 1 Access [id number] - [id number] Implanted:Qty: 1 on 02/14/2024 by Davis Jerome MD at [facility] Stent [employer] 05/17/2025 [id number] / / [id number] [employer] Stent Coronary De Rx Cocr Xience Skypoint [id number] - [id number] Implanted:Qty: 1 on 02/14/2024 by Davis Jerome MD at [facility] [employer] 08/08/2026 [id number] / / [id number] [employer] Lacie Stent Coronary Drug Eluting Rapid Exchange Synergy Xd [id number] Martelle Chromium [id number] - [id number] Implanted:Qty: 1 on 02/14/2024 by Davis Jerome MD at [facility] Stent [employer] Lacie 10/04/2025 [id number] / / [id number] [employer] [id number] Xience Alpine 2.75mm 15mm 145cm Rapid Exchange Radiopaque 1 - [id number] Implanted:Qty: 1 on 01/21/2018 by Ronal Barnes MD at [facility] Vascular 10/04/2020 [id number] / / [id number] [employer] [id number] Xience Alpine 3.5mm 23mm 145cm Rapid Exchange Radiopaque 1 Access - [id number] Implanted:Qty: 1 on 01/21/2018 by Ronal Barnes MD at [facility] [employer] 06/18/2020 [id number] Procedures Procedure Name Priority Date/Time Associated Diagnosis Comments XR ANKLE RIGHT 3 OR MORE VIEWS ED 08/18/2024 3:22 PM SCANNING SUPERVISOR XR FOOT RIGHT 3 OR MORE VIEWS ED 08/18/2024 3:22 PM SCANNING SUPERVISOR US KIDNEY COMPLETE Schedule Routine, Read Routine (OP Routine) 08/18/2024 2:15 PM SCANNING SUPERVISOR Stage 3 chronic kidney disease, unspecified whether stage 3a or 3b CKD (HCC) Acute renal failure, unspecified acute renal failure type (HCC) Type 2 diabetes mellitus without complication, unspecified whether residential insulin use (HCC) AEROBIC AND ANAEROBIC CULTURE AND GRAM STAIN Routine 08/04/2024 5:05 PM SCANNING SUPERVISOR Cellulitis of great toe of left foot Diabetic ulcer of other part of left foot associated with diabetes mellitus of other type, unspecified ulcer stage (HCC) EGFR Routine 04/28/2024 2:06 PM CDT Coronary artery disease involving [place] coronary artery of [place] heart without angina pectoris HEMOGLOBIN A1C Routine 02/14/2024 10:44 PM CDT LIPID PANEL Routine 08/25/2021 12:40 PM SCANNING SUPERVISOR Mixed hyperlipidemia ALBUMIN CREATININE RATIO, URINE Routine 01/03/2020 2:56 PM CDT from Last 3 Months or Most Recently Relevant to Health Maintenance Results * XR Foot Right 3 or More Views (08/18/2024 3:22 PM SCANNING SUPERVISOR) Anatomical Region Laterality Modality Lower Extremities, Foot Right Computed Radiography 08/18/2024 3:47 PM SCANNING SUPERVISOR Narrative 08/18/2024 3:48 PM SCANNING SUPERVISOR EXAM DESCRIPTION: XR FOOT RIGHT 3 OR MORE VIEWS; XR ANKLE RIGHT 3 OR MORE VIEWS REASON FOR STUDY: Pain, Lower Extremity Injury or Trauma Pt states R foot pain x1 week after falling on the ice. Pt states tried ice and rest, pain has not gotten better, bruising and swelling noted to top of foot and ankle. All over pain and bruising. Diabetic No Hx of Right Ankle or Foot fxs or Surgery. ; Lower Extremity Trauma Pt states R foot pain x1 week after falling on the ice. Pt states tried ice and rest, pain has not gotten better, bruising and swelling noted to top of foot and ankle. All over pain and bruising. Diabetic No Hx of Right Ankle or Foot fxs or Surgery. TECHNIQUE: Frontal, lateral, and oblique radiographic view(s) of the right ankle and foot . COMPARISON: None FINDINGS: There is mild osteopenia. There is no definite evidence of acute displaced fracture or dislocation involving the right ankle and foot. There are couple of well corticated osseous fragments noted inferior to the lateral malleolus, which is likely related to sequela of prior injury/trauma. The ankle mortise alignment is grossly well maintained. There are mild degenerative changes of the tarsal tarsal, tarsometatarsal, metatarsophalangeal, and interphalangeal joints. There are scattered vascular calcifications noted. There is mild soft tissue swelling. IMPRESSION: Mild osteopenia with mild soft tissue swelling involving the right ankle and foot without definite evidence of acute displaced fracture or dislocation. THIS IS AN ELECTRONICALLY VERIFIED FINAL REPORT 08/18/2024 3:48 PM - Electronically signed by Barrera Jeffrey D.O. PS: PS Report ID: [id number] Reading Location: [id number] Procedure Note Barrera Jeffrey DO - 08/18/2024 EXAM DESCRIPTION: XR FOOT RIGHT 3 OR MORE VIEWS; XR ANKLE RIGHT 3 OR MORE VIEWS REASON FOR STUDY: Pain, Lower Extremity Injury or Trauma Pt states R foot pain x1 week after falling on the ice. Pt states triedice and rest, pain has not gotten better, bruising and swelling noted to topof foot and ankle. All over pain and bruising. Diabetic No Hx of RightAnkle or Foot fxs or Surgery. ; Lower Extremity Trauma Pt states R foot pain x1 week after falling on the ice. Pt states triedice and rest, pain has not gotten better, bruising and swelling noted to topof foot and ankle. All over pain and bruising. Diabetic No Hx of RightAnkle or Foot fxs or Surgery. TECHNIQUE: Frontal, lateral, and oblique radiographic view(s) of theright ankle and foot . COMPARISON: None FINDINGS: There is mild osteopenia. There is no definite evidence of acutedisplaced fracture or dislocation involving the right ankle and foot. There arecouple of well corticated osseous fragments noted inferior to the lateralmalleolus, which is likely related to sequela of prior injury/trauma. The anklemortise alignment is grossly well maintained. There are mild degenerative changesof the tarsal tarsal, tarsometatarsal, metatarsophalangeal, andinterphalangeal joints. There are scattered vascular calcifications noted. There is mild soft tissue swelling. IMPRESSION: Mild osteopenia with mild soft tissue swelling involving the right ankleand foot without definite evidence of acute displaced fracture ordislocation. THIS IS AN ELECTRONICALLY VERIFIED FINAL REPORT 08/18/2024 3:48 PM - Electronically signed by Barrera Jeffrey D.O. PS: PS Report ID: [id number] Reading Location: [id number] us [facility] IM[facility] XR PROCEDURES Final Resu lt * XR Ankle Right 3 or More Views (08/18/2024 3:22 PM SCANNING SUPERVISOR) Anatomical Region Laterality Modality Lower Extremities, Ankle Right Compute d Radiography 08/18/2024 3:47 PM SCANNING SUPERVISOR Narrative 08/18/2024 3:48 PM SCANNING SUPERVISOR EXAM DESCRIPTION: XR FOOT RIGHT 3 OR MORE VIEWS; XR ANKLE RIGHT 3 OR MORE VIEWS REASON FOR STUDY: Pain, Lower Extremity Injury or Trauma Pt states R foot pain x1 week after falling on the ice. Pt states tried ice and rest, pain has not gotten better, bruising and swelling noted to top of foot and ankle. All over pain and bruising. Diabetic No Hx of Right Ankle or Foot fxs or Surgery. ; Lower Extremity Trauma Pt states R foot pain x1 week after falling on the ice. Pt states tried ice and rest, pain has not gotten better, bruising and swelling noted to top of foot and ankle. All over pain and bruising. Diabetic No Hx of Right Ankle or Foot fxs or Surgery. TECHNIQUE: Frontal, lateral, and oblique radiographic view(s) of the right ankle and foot . COMPARISON: None FINDINGS: There is mild osteopenia. There is no definite evidence of acute displaced fracture or dislocation involving the right ankle and foot. There are couple of well corticated osseous fragments noted inferior to the lateral malleolus, which is likely related to sequela of prior injury/trauma. The ankle mortise alignment is grossly well maintained. There are mild degenerative changes of the tarsal tarsal, tarsometatarsal, metatarsophalangeal, and interphalangeal joints. There are scattered vascular calcifications noted. There is mild soft tissue swelling. IMPRESSION: Mild osteopenia with mild soft tissue swelling involving the right ankle and foot without definite evidence of acute displaced fracture or dislocation. THIS IS AN ELECTRONICALLY VERIFIED FINAL REPORT 08/18/2024 3:48 PM - Electronically signed by Barrera Jeffrey D.O. PS: PS Report ID: [id number] Reading Location: [id number] Procedure Note Barrera Jeffrey, - 08/18/2024 EXAM DESCRIPTION: XR FOOT RIGHT 3 OR MORE VIEWS; XR ANKLE RIGHT 3 OR MORE VIEWS REASON FOR STUDY: Pain, Lower Extremity Injury or Trauma Pt states R foot pain x1 week after falling on the ice. Pt states triedice and rest, pain has not gotten better, bruising and swelling noted to topof foot and ankle. All over pain and bruising. Diabetic No Hx of RightAnkle or Foot fxs or Surgery. ; Lower Extremity Trauma Pt states R foot pain x1 week after falling on the ice. Pt states triedice and rest, pain has not gotten better, bruising and swelling noted to topof foot and ankle. All over pain and bruising. Diabetic No Hx of RightAnkle or Foot fxs or Surgery. TECHNIQUE: Frontal, lateral, and oblique radiographic view(s) of theright ankle and foot . COMPARISON: None FINDINGS: There is mild osteopenia. There is no definite evidence of acutedisplaced fracture or dislocation involving the right ankle and foot. There arecouple of well corticated osseous fragments noted inferior to the lateralmalleolus, which is likely related to sequela of prior injury/trauma. The anklemortise alignment is grossly well maintained. There are mild degenerative changesof the tarsal tarsal, tarsometatarsal, metatarsophalangeal, andinterphalangeal joints. There are scattered vascular calcifications noted. There is mild soft tissue swelling. IMPRESSION: Mild osteopenia with mild soft tissue swelling involving the right ankleand foot without definite evidence of acute displaced fracture ordislocation. THIS IS AN ELECTRONICALLY VERIFIED FINAL REPORT 08/18/2024 3:48 PM - Electronically signed by Barrera Jeffrey D.O. PS: PS Report ID: [id number] Reading Location: [place] [address] [facility] XR PROCEDURES Final Resu lt * US Kidney Complete (08/18/2024 2:15 PM SCANNING SUPERVISOR) Anatomical Region Laterality Modality Kidney N/A Ultrasound 08/21/2024 9:27 AM SCANNING SUPERVISOR Narrative 08/21/2024 9:35 AM SCANNING SUPERVISOR EXAM DESCRIPTION: US KIDNEY COMPLETE REASON FOR STUDY: Chronic Kidney disease, stage 3. TECHNIQUE: Ultrasound of the kidneys and urinary bladder was performed with grayscale imaging. COMPARISON: CTA runoff 11/04/2017 CT abdomen and pelvis 01/26/2017 FINDINGS: RIGHT KIDNEY: The right kidney measures 11.2 cm in length. There is no hydronephrosis. There is normal cortical thickness and echogenicity. LEFT KIDNEY: The left kidney measures 11.4 cm in length. There is no hydronephrosis. There is normal cortical thickness and echogenicity. URINARY BLADDER: The urinary bladder, as visualized, appears unremarkable. The right ureteral jet was visualized. OTHER: No other additional findings. IMPRESSION: No sonographic abnormality of the kidneys or bladder. THIS IS AN ELECTRONICALLY VERIFIED FINAL REPORT 08/21/2024 9:35 AM - Electronically signed by Joaquim Estevez M.D. LB: KAVIN Report ID: [id number] Reading Location: [id number] Procedure Note Joaquim Estevez MD - 08/21/2024 EXAM DESCRIPTION: US KIDNEY COMPLETE REASON FOR STUDY: Chronic Kidney disease, stage 3. TECHNIQUE: Ultrasound of the kidneys and urinary bladder was performedwith grayscale imaging. COMPARISON: CTA runoff 11/04/2017 CT abdomen and pelvis 01/26/2017 FINDINGS: RIGHT KIDNEY: The right kidney measures 11.2 cm in length. There is no hydronephrosis. There is normal cortical thickness and echogenicity. LEFT KIDNEY: The left kidney measures 11.4 cm in length. There is no hydronephrosis. There is normal cortical thickness and echogenicity. URINARY BLADDER: The urinary bladder, as visualized, appearsunremarkable. The right ureteral jet was visualized. OTHER: No other additional findings. IMPRESSION: No sonographic abnormality of the kidneys or bladder. THIS IS AN ELECTRONICALLY VERIFIED FINAL REPORT 08/21/2024 9:35 AM - Electronically signed by Joaquim Estevez M.D. LB: KAVIN Report ID: [id number] Reading Location: [id number] us Bailey Vidal MD IMG US PROCEDURES Final Result * (ABNORMAL) Aerobic and anaerobic culture and gram stain Wound Foot, left (08/04/2024 5:05 PM SCANNING SUPERVISOR) Direct Specimen Exam Stain: No polymorphonuclear leukocytes seen. Moderate Gram Positive Cocci Comment:Testing performed by : [facility], [address] [place]., [address] Report Final Report: Abundant Streptococcus pyogenes (Group A Streptococci) Streptococcus pyogenes is uniformly susceptible to beta-lactam antibiotics and vancomycin. Routine susceptibility testing is not performed. Moderate Staphylococcus aureus Methicillin susceptible (MSSA) by penicillin binding protein 2a (PBP2a) testing. (.) KONG VALERA Comment:Testing performed by : [facility], [address] [place]., [address] Organism STREPTOCOCCUS PYOGENES (GROUP A STREPTOCOCCI) KONG Organism STAPHYLOCOCCUS AUREUS KONG Wound (Foot, left) 08/04/2024 5:05 PM SCANNING SUPERVISOR 08/04/2024 10:17 PM SCANNING SUPERVISOR Narrative KONG - 08/10/2024 6:59 AM SCANNING SUPERVISOR Specimen received on an ESwab. Testing performed by [facility] ([phone]) Specimens submitted from normally sterile body sites will have all bacterial morphotypes identified. Specimens that contain grossly mixed cris and/or are from body sites that are not normally sterile will be examined for Staphylococcus aureus, Pseudomonas aeruginosa, beta-hemolytic strep, vancomycin-resistant Enterococcus, Bacteroides, Parabacteroides, Clostridium perfringens and fungus. If any of these are isolated, the organism will be reported. Current interpretive data was last revised on 2019. Organism Antibiotic Method Susceptibility Staphylococcus aureus Vancomycin INTERPRETATION Susceptible Staphylococcus aureus Trimethoprim with Sulfamethoxazole INTERPRETATION Susceptible Staphylococcus aureus Linezolid INTERPRETATION Susceptible Staphylococcus aureus Doxycycline INTERPRETATION Susceptible Staphylococcus aureus Clindamycin INTERPRETATION Susceptible Staphylococcus aureus Erythromycin INTERPRETATION Susceptible Staphylococcus aureus Oxacillin INTERPRETATION Susceptible Staphylococcus aureus Cefazolin INTERPRETATION Susceptible Staphylococcus aureus Ceftriaxone INTERPRETATION Susceptible us Maria Elena Kyle NP LAB MICROBIOLOGY - GENERAL ORD ERABLES Final Result KONG VALERA [address] [address] Department [place] [address] * (ABNORMAL) eGFR (04/28/2024 2:06 PM CDT) eGFR 29(L) >=60 mL/min/1. 73 m2 Comment: Interpretive Data Reference Interval Normal >/= 90 mL/min/1.73m2 Mildly decreased* 60 - 89 mL/min/1.73m2 Mildly to moderately decreased 45 - 59 mL/min/1.73m2 Moderately to severely decreased 30 - 44 mL/min/1.73m2 Severely decreased 15 - 29 mL/min/1.73m2 Kidney Failure < 15 mL/min/1.73m2 *Relative to young adult level Estimated glomerular filtration rate is determined by the 2020 CKD-EPI equation recommended by the National Kidney Foundation (A Unifying Approach to GFR Estimation: Recommendations of the NKF-ASK Task Force on Reassessing the Inclusion of Race in Diagnosing Kidney Disease, JASN 2020). The CKD-EPI equation should not be used for patients with unstable renal function and has not been validated in children and those over 70. Current interpretive data was last reviewed 2021. Blood 04/28/2024 2:06 PM CDT 04/28/2024 2:23 PM CDT Davis Jerome MD LAB BLOOD ORDERABLES Final Result CALLUMARTHUR MASOUD ([place]) 1 [facility] Department of Laboratories [place], [place] [id number] * (ABNORMAL) Hemoglobin A1c (02/14/2024 10:44 PM CDT) Hgb A1C 5.9(H) 4.0 - 5.6 % Estimated Average Glucose 123 mg/dL KONG MEREDITH ([place]) Comment: The ADA recommends reporting an estimated Average Glucose (eAG) with all Hemoglobin A1c results using the equation derived from a study of 507 normal and diabetic adults. Minority populations were underrepresented and children were not included. (Diabetes Care 31:2439-7433, 2008). The eAG is not equivalent to a fasting glucose. Blood 02/14/2024 10:4 4 PM CDT 02/14/2024 10:47 PM CDT Davis Jerome MD LAB BLOOD ORDERABLES Final Result KONG MEREDITH (RAD[place]) 1 [facility] Department [place] [address] * (ABNORMAL) Lipid panel (08/25/2021 12:40 PM SCANNING SUPERVISOR) Cholesterol 143 30 - 199 mg/dL KONG MEREDITH (RADHA) Comment: Interpretive Data Ages < or = 19 years Acceptable: <170 mg/dL Borderline high: 170-199 mg/dL High: >or= 200 mg/dL Ages > or = 20 years Desirable: <200 mg/dL Borderline high: 200-239 mg/dL High: >or= 240 mg/dL Literature References: 1. Expert Panel on Integrated Guidelines for Cardiovascular Health and Risk Reduction in Children and Adolescents. Pediatrics 2011;128:S213 2. NCEP Expert Panel. Circulation 2004;110:227 Current Interpretive Data was last revised on 2018. Triglycerides 176(H) <=149 mg/dL KONG MEREDITH (RADHA) Comment: Interpretive Data Ages < or = 9 years Acceptable: <75 mg/dL Borderline high: 75-99 mg/dL High: >or= 100 mg/dL Ages 10 to 20 years Acceptable: <90 mg/dL Borderline high: 90-129 mg/dL High: >or= 130 mg/dL Ages > or = 20 years Desirable: <150 mg/dL Borderline high: 150-199 mg/dL High: 200-499 mg/dL Very high: >or= 499 mg/dL Literature References: 1. Expert Panel on Integrated Guidelines for Cardiovascular Health and Risk Reduction in Children and Adolescents. Pediatrics 2011;128:S213 2. NCEP Expert Panel. Circulation 2004;110:227 Current Interpretive Data was last revised on 2018. HDL 35(L) >=40 mg/dL KONG MEREDITH ([place]DAHA) Comment: Interpretive Data Ages < or = 19 years Acceptable: >45 mg/dL Borderline low: 40-45 mg/dL Low: <40 mg/dL Ages > or = 20 years Desirable: >or= 60 mg/dL Low: <40 mg/dL Literature References: 1. Expert Panel on Integrated Guidelines for Cardiovascular Health and Risk Reduction in Children and Adolescents. Pediatrics 2011;128:S213 2. NCEP Expert Panel. Circulation 2004;110:227 Current Interpretive Data was last revised on 2018. LDL, calculated 73 <=129 mg/dL KONG MEREDITH (RADHA) Comment: Interpretive Data Ages < or = 19 years Acceptable: <110 mg/dL Borderline high: 110-129 mg/dL High: >or= 130 mg/dL Ages > or = 20 years Optimal: <100 mg/dL Near optimal: 100-129 mg/dL Borderline high: 130-159 mg/dL High: >160 mg/dL Literature References: 1. Expert Panel on Integrated Guidelines for Cardiovascular Health and Risk Reduction in Children and Adolescents. Pediatrics 2011;128:S213 2. NCEP Expert Panel. Circulation 2004;110:227 Current Interpretive Data was last revised on 2018. Non-HDL Cholesterol 108 mg/dL KONG MEREDITH (RADHA) Comment: Interpretive Data Ages < or = 19 years Acceptable: <120 mg/dL Borderline high: 120-144 mg/dL High: >145 mg/dL Ages > or = 20 years When triglycerides are >200 mg/dL, Non-HDL cholesterol is a secondary target of therapy with treatment goals that are 30 mg/dL greater than the LDL cholesterol target. Literature References: 1. Expert Panel on Integrated Guidelines for Cardiovascular Health and Risk Reduction in Children and Adolescents. Pediatrics 2011;128:S213 2. NCEP Expert Panel. Circulation 2004;110:227 Current Interpretive Data was last revised on 2018. Chol/HDL ratio 4 JAKE MEREDITH (RADHA) Blood 08/25/2021 12:4 0 PM SCANNING SUPERVISOR 08/25/2021 12:52 PM SCANNING SUPERVISOR us Rosemarie Petersen TEMPLATE CHECKER LAB BLOOD ORDERABLES Final Result KONG MEREDITH (RADHA) 1 [facility] Department of Laboratories [place], [place] [id number] * Albumin Creatinine Ratio, Urine (01/03/2020 2:56 PM CDT) Albumin Ur 36.9 mg/L KONG Barr (RADHA) Comment: Interpretive Data No reference range established. Current interpretive data was last revised 2018. Testing performed by: [facility], [address] [place] [address]., [address] Creatinine Ur 231.4 mg/dL KONG MEREDITH (RADHA) Comment: Interpretive Data No reference range established. Current interpretive data was last revised 2018. Testing performed by: [facility], [address] [place] [address]., [address] Albumin Creatinine Ratio, Ur 16 1 - 29 mg/g KONG MEREDITH (RADHA) Comment:Testing performed by : [facility], [address] [place] [address]., [address] Urine 01/03/2020 2:56 PM CDT 01/04/2020 9:31 AM CDT Denys Stern DO LAB URINE ORDERABLES Anabell l Result KONG MEREDITH (RAD[place]) 1 [facility] Department of Laboratories [place], [place] [id number] from Last 3 Months or Most Recently Relevant to Health Maintenance Insurance [facility] [place] [address] [facility] Advance Directives For more information, please contact: [phone] * Full Code (Latest Code Status on File) Date Activated Date Inactivated Comments 02/14/2024 11:48 AM 02/15/2024 5:24 PM * Full Code Date Activated Date Inactivated Comments 10/03/2023 12:25 AM 10/05/2023 5:14 PM * Full Code Date Activated Date Inactivated Comments 01/22/2018 12:39 AM 01/24/2018 3:33 PM * Full Code Date Activated Date Inactivated Comments 01/22/2018 12:07 AM 01/22/2018 12:39 AM Care Teams Accounts Receivable Supervisor Relationship Specialty Start Date End Date Teri Tirado NP [address] [place] [address] PCP - General Nurse Practitioner 04/28/24
--- OUTSIDE RECORDS SUMMARY | 2024-08-24 13:52 | XMS_ITS | Encounter Summary ---
Author Organization [facility] Address [address] [place] [address] Phone Care Team Providers Care Phthalic Acid Purifier Name Role Phone Denys Stern Primary Care Provider [phone] Reason for Visit * Reason Onset Date Comments Medication Refill Medication Refill 01/27/2021 Encounter Details Date Type Department Care Team (Late st Contact Info) Description [facility] [address] [place] [address] Aris Esteban MD #[address] [address] Medication Refill; Medication Refill Social History Tobacco Use Types Packs/Day Years Used Date Smoking Tobacco: Never Smokeless Tobacco: Never Alcohol Use Standard Drinks/Week Comments Yes 1 (1 standard drink = 0.6 oz pur e alcohol) Very rare. PHQ-2 Answer Date Recorded Total Score - Questions 1-9 07/2019 Comments No Sex and Gender Information Value Date Recorded Sex Assigned at Not on file Legal Sex Female 11:13 PM CDT Gender Identity Not on file Sexual Orientation Not on file documented as of this encounter Miscellaneous Notes * Telephone Encounter - Chela Jason RN - 01/27/2021 1:57 PM CDT PCP is Dr Leena SWAIN at [facility] * Telephone Encounter - Chela Jason RN - 01/27/2021 1:54 PM CDT Patient needs an appointment for refills. documented in this encounter Plan of Treatment Not on file documented as of this encounter Visit Diagnoses Not on filedocumented in this encounter Additional Health Concerns Assessment Noted Time PHQ-9 Depression Total Score: 22 020 3:50 PM CDT documented as of this encounter Care Teams Phthalic Acid Purifier Relationship Specialty Start Date End Date Denys Stern DO [address] [place] [address] PCP - General Family Medicine 01/27/21 documented as of this encounter
--- OUTSIDE RECORDS SUMMARY | 2024-08-24 13:52 | XMS_ITS | Referral Summary ---
Author Organization [facility] Address [address] [place] [id number] Care Team Providers Care Gas Main Fitter Name Role Phone Teri Tirado NP Primary Care Provider [phone] Encounters Date Type Department Care Team Description 08/18/2024 3:24 PM SALOON KEEPER - 08/18/2024 4:14 PM SALOON KEEPER Emergency [facility] [address] [place] [address] Sprain of anterior talofibular ligament of right ankle, initial encounter (Primary Dx); Right foot sprain, initial encounter; Fall due to slipping on ice or snow, initial encounter Discharge Disposition: Discharge to home or self care 08/18/2024 1:27 PM SALOON KEEPER - 08/18/2024 11:59 PM SALOON KEEPER Hospital Encounter [facility] [address] [place] [address] Stage 3 chronic kidney disease, unspecified whether stage 3a or 3b CKD (HCC); Acute renal failure, unspecified acute renal failure type (HCC); Type 2 diabetes mellitus without complication, unspecified whether ferry terminal agent insulin use (HCC) Discharge Disposition: Discharge to home or self care 08/10/2024 Telephone [facility] [place] [address] [place] [phone] Binta Coyle MA 08/10/2024 Telephone [facility] [place] [address] [phone] Janet Feldman MA 08/04/2024 5:05 PM SALOON KEEPER - 08/04/2024 11:59 PM SALOON KEEPER Hospital Encounter [facility] [address] [place] [address] Cellulitis of great toe of left foot; Diabetic ulcer of other part of left foot associated with diabetes mellitus of other type, unspecified ulcer stage (HCC) Discharge Disposition: Discharge to home or self care 08/04/2024 4:15 PM SALOON KEEPER Office Visit [facility] [place] [address] [place] [phone] Maria Elena Kyle NP Cellulitis of great toe of left foot (Primary Dx); Diabetic ulcer of other part of left foot associated with diabetes mellitus of other type, unspecified ulcer stage (HCC) 07/03/2024 Telephone [facility] at [address] [place] [phone] Mee Alonzo MA 07/03/2024 Orders Only [facility] at [address] [place] [phone] Davis Jerome MD LESLYE (acute kidney injury) (HCC) (Primary Dx) from Last 3 Months Allergies Active Allergy Reactions Criticality Noted Date [...] side 01/17/2021 Coronary artery disease invo lving kaltag coronary artery of kaltag heart without angina pectoris 09/26/2020 Assessment & Plan (09/26/2020 12:32 PM SALOON KEEPER): A plan to further investigate the patient's chest discomfort with Cardiolite treadmill stress testing. She will continue with aggressive secondary risk factor modification we will reach evaluate her known lipid abnormalities with more recent lipid profile. Bilateral carotid artery stenosis 09/26/2020 Assessment & Plan (09/26/2020 12:32 PM SALOON KEEPER): It has been a number of years since her carotids have been re-evaluated. We will do so with carotid duplex. Dyspnea on exertion 09/26/2020 Assessment & Plan (09/26/2020 12:31 PM SALOON KEEPER): A plan to further investigate the patient's [...] 2 chronic kidney disease 01/22/2018 Depression 01/22/2018 Social History Tobacco Use Types Packs/Day Years [...] on file Legal Sex Female 12:36 PM SALOON KEEPER Gender Identity Not on file Sexual Orientation Not on file Last Filed Vital Signs Vital Sign Reading Time Taken Comments Blood Pressure 109/56 08/18/2024 2:16 PM SALOON KEEPER Pulse 77 08/18/2024 2:16 PM SALOON KEEPER Temperature 36.7 C (98 F) 08/18/2024 2:16 PM SALOON KEEPER Respiratory Rate 16 08/18/2024 2:16 PM SALOON KEEPER Oxygen Saturation 98% 08/18/2024 2:16 PM SALOON KEEPER Inhaled Oxygen Concentration - - Weight 65.8 kg (145 lb) 08/18/2024 2:16 PM SALOON KEEPER Height 170.2 cm (5' 7 ) 08/04/2024 4:18 PM SALOON KEEPER Body Mass Index 22.71 08/04/2024 4:18 PM SALOON KEEPER Plan of Treatment Not on file Medical Devices Implanted Type Area Plywood Stock Grader Device Identifier Shelf Expiration Date Model / Serial / Lot [employer] Lacie Synergy Xd Monorail 2.75mm 24mm 144cm Delivery System 1 Access [id number] - [id number] Implanted:Qty: 1 on 02/14/2024 by Davis Jerome MD at [facility] Stent [employer] Lacie 05/17/2025 [id number] / / [id number] [employer] Stent Coronary De Rx Cocr Xience Skypoint 2.53l76km [id number] - [id number] Implanted:Qty: 1 on 02/14/2024 by Davis Jerome MD at [facility]ent [employer] 08/08/2026 [id number] / / [id number] [employer] Lacie Stent Coronary Drug Eluting Rapid Exchange Synergy Xd 3.68e53en Resighini Chromium [id number] - [id number] Implanted:Qty: 1 on 02/14/2024 by Davis Jerome MD at [facility] Stent [employer] Lacie 10/04/2025 [id number] / / [id number] [employer] [id number] Xience Alpine 2.75mm 15mm 145cm Rapid Exchange Radiopaque 1 - [id number] Implanted:Qty: 1 on 01/21/2018 by Ronal Barnes MD at [facility] [employer] 10/04/2020 [id number] / / [id number] [employer] [id number] Xience Alpine 3.5mm 23mm 145cm Rapid Exchange Radiopaque 1 Access - [id number] Implanted:Qty: 1 on 01/21/2018 by Ronal Barnes MD at [facility] Vascular 06/18/2020 [id number] / [id number] Procedures Procedure Name Priority Date/Time Associated Diagnosis Comments XR ANKLE RIGHT 3 OR MORE VIEWS ED 08/18/2024 3:22 PM SALOON KEEPER XR FOOT RIGHT 3 OR MORE VIEWS ED 08/18/2024 3:22 PM SALOON KEEPER US KIDNEY COMPLETE Schedule Routine, Read Routine (OP Routine) 08/18/2024 2:15 PM SALOON KEEPER Stage 3 chronic kidney disease, unspecified whether stage 3a or 3b CKD (HCC) Acute renal failure, unspecified acute renal failure type (HCC) Type 2 diabetes mellitus without complication, unspecified whether ferry terminal agent insulin use (HCC) AEROBIC AND ANAEROBIC CULTURE AND GRAM STAIN Routine 08/04/2024 5:05 PM SALOON KEEPER Cellulitis of great toe of left foot Diabetic ulcer of other part of left foot associated with diabetes mellitus of other type, unspecified ulcer stage (HCC) EGFR Routine 04/28/2024 2:06 PM CDT Coronary artery disease involving kaltag coronary artery of kaltag heart without angina pectoris HEMOGLOBIN A1C Routine 02/14/2024 10:44 PM CDT LIPID PANEL Routine 08/25/2021 12:40 PM SALOON KEEPER Mixed hyperlipidemia ALBUMIN CREATININE RATIO, URINE Routine 01/03/2020 2:56 PM CDT from Last 3 Months or Most Recently Relevant to Health Maintenance Results * XR Foot Right 3 or More Views (08/18/2024 3:22 PM SALOON KEEPER) Anatomical Region Laterality Modality Lower Extremities, Foot Right Computed Radiography 08/18/2024 3:47 PM SALOON KEEPER Narrative 08/18/2024 3:48 PM SALOON KEEPER EXAM DESCRIPTION: XR FOOT RIGHT 3 OR [...] Barrera Jeffrey D.O. PS: PS Report ID: [id number] Reading Location: [id number] Procedure Note Barrera Jeffrey DO - 08/18/2024 [...] Barrera Jeffrey D.O. PS: PS Report ID: [id number] Reading Location: [id number] us Lionel AMARAL IMG XR PROCEDURES Final Resu lt * XR Ankle Right 3 or More Views (08/18/2024 3:22 PM SALOON KEEPER) Anatomical Region Laterality Modality Lower Extremities, Ankle Right Compute d Radiography 08/18/2024 3:47 PM SALOON KEEPER Narrative 08/18/2024 3:48 PM SALOON KEEPER EXAM DESCRIPTION: XR FOOT RIGHT 3 OR [...] Barrera Jeffrey D.O. PS: PS Report ID: [id number] Reading Location: [id number] Procedure Note Barrera Jeffrey DO - 08/18/2024 [...] Barrera Jeffrey D.O. PS: PS Report ID: [id number] Reading Location: [place] [address] Lionel AMARAL IMG XR PROCEDURES Final Resu lt * US Kidney Complete (08/18/2024 2:15 PM SALOON KEEPER) Anatomical Region Laterality Modality Kidney N/A Ultrasound 08/21/2024 9:27 AM SALOON KEEPER Narrative 08/21/2024 9:35 AM SALOON KEEPER EXAM DESCRIPTION: US KIDNEY COMPLETE REASON FOR [...] Joaquim Estevez M.D. LB: KAVIN Report ID: [id number] Reading Location: [id number] Procedure Note Joaquim Estevez MD - 08/21/2024 [...] Joaquim Estevez M.D. LB: KAVIN Report ID: [id number] Reading Location: [id number] Bailey Vidal MD IM US PROCEDURES Final Result * (ABNORMAL) Aerobic and anaerobic culture and gram stain Wound Foot, left (08/04/2024 5:05 PM SALOON KEEPER) Direct Specimen Exam Stain: No polymorphonuclear leukocytes seen. Moderate Gram Positive Cocci Comment:Testing performed by : [facility], [address] [place]., [address] Report Final Report: Abundant Streptococcus pyogenes (Group A Streptococci) Streptococcus pyogenes is uniformly susceptible to beta-lactam antibiotics and vancomycin. Routine susceptibility testing is not performed. Moderate Staphylococcus aureus Methicillin susceptible (MSSA) by penicillin binding protein 2a (PBP2a) testing. (.) KONG VALERA Comment:Testing performed by : [facility], [address] [place]., [address] Organism STREPTOCOCCUS PYOGENES (GROUP A STREPTOCOCCI) KONG Organism STAPHYLOCOCCUS AUREUS KONG Wound (Foot, left) 08/04/2024 5:05 PM SALOON KEEPER 08/04/2024 10:17 PM SALOON KEEPER Narrative KONG - 08/10/2024 6:59 AM SALOON KEEPER Specimen received on an ESwab. Testing performed by [facility] ([phone]) Specimens submitted from normally sterile body sites [...] GENERAL ORD ERABLES Final Result KONG VALERA [address] [address] Department [place] [address] * (ABNORMAL) eGFR (04/28/2024 2:06 PM CDT) [facility] Signature eGFR 29(L) >=60 mL/min/1. 73 m2 Comment: [...] Jerome MD LAB BLOOD ORDERABLES Final Result Performing Organization Address City/[facility] Co de Phone Number CALLUMARTHUR [facility] [address] [place] [address] Department [place] [address] * (ABNORMAL) Hemoglobin A1c (02/14/2024 10:44 PM CDT) Hgb A1C 5.9(H) 4.0 - 5.6 % Estimated Average Glucose 123 mg/dL KONG MEREDITH ([place]) Comment: The ADA recommends reporting an estimated Average Glucose (eAG) with all Hemoglobin A1c results using the equation derived from a study of 507 normal and diabetic adults. Minority populations were underrepresented and children were not included. (Diabetes Care 31:7151-9577, 2008). The eAG is not equivalent to a fasting glucose. Blood 02/14/2024 10:4 4 PM CDT 02/14/2024 10:47 PM CDT Davis Jerome MD LAB BLOOD ORDERABLES Final Result KONG MEREDITH (RADHA) 1 [facility] [place] [address] * (ABNORMAL) Lipid panel (08/25/2021 12:40 PM SALOON KEEPER) Cholesterol 143 30 - 199 mg/dL KONG [...] 2018. HDL 35(L) >=40 mg/dL KONG MEREDITH (RADHA) Comment: Interpretive Data [...] last revised on 2018. Chol/HDL ratio 4 CALLUMNE R MASOUD (RADHA) Blood 08/25/2021 12:4 0 PM SALOON KEEPER 08/25/2021 12:52 PM SALOON KEEPER Rosemarie Petersen SEPARATIONS SCIENTIST LAB BLOOD ORDERABLES Final Result KONG MEREDITH (RADHA) 1 [facility] [place] [address] * Albumin Creatinine Ratio, Urine (01/03/2020 2:56 PM CDT) Albumin Ur 36.9 mg/L KONG AM H (RADHA) Comment: Interpretive Data No reference range established. Current interpretive data was last revised 2018. Testing performed by: [facility], [address] [place]., [address] Creatinine Ur 231.4 mg/dL KONG MEREDITH (RADHA) Comment: Interpretive Data No reference range established. Current interpretive data was last revised 2018. Testing performed by: [facility], [address] [place] [address]., [address] Albumin Creatinine Ratio, Ur 16 1 - 29 mg/g KONG MEREIDTH (RADHA) Comment:Testing performed by : [facility], [address] [place] [address]., [address] Urine 01/03/2020 2:56 PM CDT 01/04/2020 9:31 AM CDT Denys Stern DO LAB URINE ORDERABLES Anabell yung Result KONG MEREDITH (RADHA) 1 [facility] Department [place] [address] from Last 3 Months or Most Recently Relevant to Health Maintenance Insurance [facility] [place] [place] [address] Advance Directives For more information, please contact: [phone] * Full Code (Latest Code Status on File) Date Activated Date Inactivated Comments 02/14/2024 11:48 AM 02/15/2024 5:24 PM * Full Code Date Activated Date Inactivated Comments 10/03/2023 12:25 AM 10/05/2023 5:14 PM * Full Code Date Activated Date Inactivated Comments 01/22/2018 12:39 AM 01/24/2018 3:33 PM * Full Code Date Activated Date Inactivated Comments 01/22/2018 12:07 AM 01/22/2018 12:39 AM Care Teams Gas Main Fitter Relationship Specialty Start Date End Date Teri Tirado NP [address] [place] [id number] PCP - General Nurse Practitioner 04/28/24
[2024-08-24 19:33] LABS: Add Urine Microscopic? YES; Appearance Urine Clear (Clear); Bacteria Urine Rare /hpf; Bilirubin Urine Negative (Negative); Blood Urine 1+ (Negative); Color Urine Yellow (Yellow); Glucose Urine UA Negative (Negative); Ketones Urine Negative (Negative); Leukocyte Esterase Ur Trace LEU/UL (Negative); Nitrate Urine Negative (Negative); Non Pathogenic Casts 0-2; Protein Urine 2+ mg/dL (Negative); RBC Urine 0-2 /hpf (0-2); Specific Grav Ur 1.017 (1.001-1.035); Squamous Epithelial Cell Urine Occasional /hpf (Few); Urobilinogen Urine 0.2 mg/dL (<2.0)
[2024-08-24 20:22] LABS: Alanine Aminotransferase 15 U/L (6-35); Albumin Level 4.7 g/dL (3.5-5.1); Alkaline Phosphatase 78 U/L (38-126); Anion Gap 13 mmol/L (4-12); Aspartate Amino Transferase 31 U/L (14-36); Bilirubin,Total 0.5 mg/dL (0.2-1.3); Blood Urea Nitrogen 41 mg/dL (7-17); Calcium 10.5 mg/dL (8.4-10.2); Carbon Dioxide 27 mmol/L (22-30); Chloride 101 mmol/L (98-107); Cholesterol 202 mg/dL (0-200); Estimated Glomerular Filt Rate 29; Glucose 106 mg/dL (65-110); HDL Direct 47 mg/dL; Potassium 4.6 mmol/L (3.4-5.0); Sodium 141 mmol/L (137-145); Triglycerides 174 mg/dL (<150)
[2024-08-24 20:29] LABS: Albumin Level 4.7 g/dL (3.5-5.1); Anion Gap 15 mmol/L (4-12); Blood Urea Nitrogen 40 mg/dL (7-17); Calcium 10.5 mg/dL (8.4-10.2); Carbon Dioxide 25 mmol/L (22-30); Chloride 101 mmol/L (98-107); Estimated Glomerular Filt Rate 29; Glucose 106 mg/dL (65-110); Phosphorus 3.3 mg/dL (2.5-4.5); Potassium 4.5 mmol/L (3.4-5.0); Sodium 141 mmol/L (137-145)
[2024-08-24 20:33] LABS: Creatinine Urine 114.1 mg/dL
[2024-08-24 20:34] LABS: LDL Cholesterol Direct 100 mg/dL
[2024-08-24 20:42] LABS: Complement C3 136 mg/dL (88-165)
[2024-08-24 21:00] LABS: MALB Creatinine Ratio 326.2 mg/g (0-30); Microalbumin Urine Random 372.2 mg/L (0-16.7)
[2024-08-24 21:08] LABS: Vitamin D 25 Hydroxy 43.7 ng/mL
[2024-08-24 21:09] LABS: Sodium Urine Random 105 meq/L
[2024-08-24 21:17] LABS: Creatinine Urine 114.7 mg/dL; Total Protein Urine Random 79 mg/dL; Ur Ttl Prot Creatinine Ratio 0.69 mg/mg (0-0.20)
[2024-08-25 17:39] LABS: Protein, Total 8.7 g/dL (6.1-8.1)
[2024-08-26 12:29] LABS: ANCA Screen NEGATIVE (NEGATIVE)
[2024-08-26 13:03] LABS: Anti Glomerular Basement Memb <1.0 AI
[2024-08-28 19:43] LABS: Albumin 4.7 g/dL (3.8-4.8); Alpha 1 Globulin 0.4 g/dL (0.2-0.3); Beta 1 Globulin 0.5 g/dL (0.4-0.6); Gamma Globulin 1.6 g/dL (0.8-1.7)
[2024-08-30 12:43] LABS: Anti Nuclear Antibody Pattern Nuclear, Speckled; Anti Nuclear Antibody Titer 1:40 titer
== END 2024-08-24 13:47 | disposition home or self-care (01) ==
PROVIDERS: PCP Nurse Practitioner Adult Health; Visit Provider Internal Medicine Nephrology
DX: E11.22 Type 2 diabetes mellitus with diabetic chronic kidney disease (principal); N18.30 Chronic kidney disease, stage 3 unspecified; N17.9 Acute kidney failure, unspecified; E55.9 Vitamin D deficiency, unspecified; R39.9 Unspecified symptoms and signs involving the genitourinary system
CPT/HCPCS: 36415; 80053; 80061; 80069; 81001; 82043; 82306; 82565; 82570; 83036; 83520; 84155; 84156; 84165; 84166; 84300; 86036; 86038; 86039; 86160; 86225; 87077; 87086; 87186

== ENCOUNTER 2024-12-28 13:51 | Outpatient (CLI) | payer OTHER, SELFPAY ==
--- OUTSIDE RECORDS SUMMARY | 2024-12-28 14:27 | XMS_ITS | Clinical Summary ---
Author Organization [facility] Address [address] [address] Phone Care Team Providers Care Press Set Up Person Name Role Phone RiverDenys grant Matthew SWAIN Primary Care Provider +1- [phone] Allergies No known active allergies Medications Glucose [...] 3:44 PM CDT Height 168.9 cm (5' 6.5) 11/17/2019 3:44 PM CDT Body Mass Index 24.77 11/17/2019 3:44 PM CDT Plan of Treatment Health Maintenance Due Date Last Done Comments DEXA Bone Density 1954 Diabetes: Eye Exam 1954 Hepatitis C Virus (HCV) Screening 1955 Mammogram 1954 TdaP Immunization 1954 Pneumococcal Immunization (50+ years) (1 of 2 - PCV) 1973 Cologuard 12/03/1999 Immunochemical Fecal Occult Blood 12/03/1999 Zoster Immunization (1 of 2) 2004 Respiratory Syncytial Virus (RSV) Immunization (Adult) (1 - Risk 60-74 years 1-dose series) 2014 Colonoscopy 07/10/2017 01/08/2017 Colorectal Cancer Screening 07/10/2017 Diabetes: Hemoglobin A1c 07/04/2020 020, 11/17/2019, 08/16/2019, Additional history exists Diabetes: Nephropathy Screening 08/25/2020 08/25/2019, 04/03/2019, 04/03/2019, Additional history exists Diabetes: Foot Exam 11/16/2020 11/17/2019, 11/17/2019, 11/22/2017, Additional history exists SARS-COV-2 Immunization ( season) 2024 02/04/2021, 01/15/2021 Influenza Immunization (Season Ended) 2025 08/15/2019, 10/31/2017, 04/02/2015, Additional history exists Hepatitis B Immunization Aged Out No longer eligible based on patient's age to complete this topic Human Papillomavirus (HPV) Immunization Aged Out No longer eligible based [...] (COMPREHENSIVE METABOLIC PANEL) STAT 08/25/2019 4:15 PM PROVIDER SCRIBE from Last 3 Months or Most Recently Relevant to Health Maintenance Results * (ABNORMAL) POCT GLYCOSYLATED HEMOGLOBIN (11/17/2019 4:26 PM CDT) HGB-A1C 8.3(A) 4 - 6 11/17/2019 4:26 PM CDT Iraida Auguste CLAY GRINDER, PATIENT REGISTRATION SPECIALIST POINT OF CARE TESTIN G (MANUAL) Final Result * (ABNORMAL) CMP (Comprehensive Metabolic Panel) (08/25/2019 4:15 PM PROVIDER SCRIBE) SODIUM 127(L) 136 - 144 mmol/L 08/25/2019 5:26 PM PROVIDER SCRIBE [facility] POTASSIUM 4.2 3.5 - 5.1 mmol/L 08/25/2019 5:26 PM PROVIDER SCRIBE [facility] CHLORIDE 89(L) 100 - 110 mmol/L 08/25/2019 5:26 PM PROVIDER SCRIBE [facility] CO2, VENOUS 24 22 - 32 mmol/L 08/25/2019 5:26 PM [facility] ANION GAP 18.2 8.0 - 20.0 mmol/L 08/25/2019 5:26 PM [facility] GLUCOSE 409(HH) 70 - 99 mg/dL 08/25/2019 5:26 PM [facility] BUN 21 8 - 23 mg/dL 08/25/2019 5:26 PM [facility] CREATININE, BLOOD 0.86 0.60 - 1.10 mg/dL 08/25/2019 5:26 PM [facility] BUN/CREATININE RATIO 24(H) 12 - 20 ratio 08/25/2019 5:26 PM [facility] TOTAL PROTEIN 8.3 6.0 - 8.3 g/dL 08/25/2019 5:26 PM [facility] ALBUMIN 4.5 3.5 - 5.2 g/dL 08/25/2019 5:26 PM [facility] Comment: The colormetric methods used for the determination of Albumin may lead to falsely elevated test results in patients suffering from renal failure or insufficiency due to interference with other proteins. A/G RATIO 1.2 1.0 - 2.0 08/25/2019 5:26 PM [facility] CALCIUM 10.0 8.9 - 10.3 mg/dL 08/25/2019 5:26 PM [facility] T BILI 0.6 <=1.2 mg/dL 08/25/2019 5:26 PM [facility] SGOT (AST) 14 <=32 U/L 08/25/2019 5:26 PM [facility] SGPT (ALT) 13 <=33 U/L 08/25/2019 5:26 PM [facility] ALKALINE PHOSPHATASE 64 35 - 105 U/L 08/25/2019 5:26 PM [facility] GFR, EST. NONAFRICAN >60 >=60 08/25/2019 5:26 PM [facility] GFR, EST. >60 >=60 020 5:26 PM PROVIDER SCRIBE [facility] Comment: Creatinine Clearance is the preferred criteria for selecting drug dose adjustments in renally impaired patients. The GFR is provided as additional pertinent clinical information. GFR is reported in mL/min/1.73 sq m. Blood specimen (specimen) Butterfly Puncture / Unknown 08/25/2019 4:15 PM PROVIDER SCRIBE 08/25/2019 4:42 PM PROVIDER SCRIBE us Denys Aguiar MD CHEMISTRY ORDERABLES Final Resu lt [facility] [address] [place] [address] from Last 3 Months or Most Recently [...] measures to stabilize the patient. Care Teams Press Set Up Person Relationship Specialty Start Date End Date Denys Stern DO [address] [place] [address] PCP - General Family Medicine 01/27/21
--- OUTSIDE RECORDS SUMMARY | 2024-12-28 14:27 | XMS_ITS | Encounter Summary ---
Author Organization [facility] Address [address] [place] [address] Phone Care Team Providers Care Production Broacher Name Role Phone Denys Stern Primary Care Provider [phone]- [phone] Reason for Visit * Reason Onset Date Comments Medication Refill Medication Refill 01/27/2021 Encounter Details Date Type Department Care Team (Late st Contact Info) Description 01/26[facility]20[facility] [address] [place] [address] Aris Esteban MD [address] [address] Medication Refill; Medication Refill Social History Tobacco [...] CDT PCP is Dr Leena SWAIN at [facility] * Telephone Encounter - Chela Jason RN - 01/27/2021 1:54 PM CDT Patient needs an appointment for refills. documented in this encounter Plan of Treatment Not on file documented as of this encounter Visit Diagnoses Not on filedocumented in this encounter Additional Health Concerns Assessment Noted Time PHQ-9 Depression Total Score: 22 020 3:50 PM CDT documented as of this encounter Care Teams Production Broacher Relationship Specialty Start Date End Date Denys Stern DO [address] [place] [address] PCP - General Family Medicine 01/27/21 documented as of this encounter
--- OUTSIDE RECORDS SUMMARY | 2024-12-28 14:28 | XMS_ITS | Referral Summary ---
Author Organization [facility] Address [id number] [place] [id number] Care Team Providers Care Mold Unloader Name Role Phone Celestino Teri SUSAN Primary Care Provider [phone] Encounters Date Type Department Care Team Description 12/22/2024 2:30 PM CDT Office Visit [facility] at [address] [place] [phone] Davis Jerome MD Coronary artery disease involving inupiat coronary artery of inupiat heart without angina pectoris (Primary Dx); Syncope, unspecified syncope type 12/13/2024 [facility] Post Discharge Follow up phone call [facility] [address] [place] [id number] Annette Dubois 12/06/2024 2:18 PM CDT - 12/09/2024 1:35 PM CDT Hospital Encounter [facility] IMU [address] [place] [address] Peterson Ford MD Bross, Deborah L F D, MD Singh, Supriya, MD Nikolic, Jelena, MD Chest pain, unspecified type (Primary Dx); Nausea and vomiting, unspecified vomiting type Discharge Disposition: Discharge to home or self care 12/08/2024 Orders Only [facility] Cardiology [address] [place] [address] Sue Lemon from Last 3 Months Allergies Active Allergy [...] total) by mouth daily 06/04/20 21 Active atorvastatin (LIPITOR) 80 mg tablet [...] 09/11/19 23 Active gabapentin (NEURONTIN) 300 mg capsuleIndicat ions:Numbness and tingling of lower extremity TAKE 1 CAPSULE BY MOUTH THREE TIMES A DAY 90 capsule 3 02/07/20 24 Active clopidogreL (PLAVIX) 75 mg tablet TAKE 1 TABLET BY MOUTH EVERY DAY 90 tablet 3 04/10/20 24 Active amLODIPine (NORVASC) 2.5 mg tablet Take 1 tablet (2.5 mg total) by mouth daily 30 tablet 12/23/192025 Active famotidine (PEPCID) 20 mg tablet Take 1 tablet (20 mg total) by mouth daily 06/26/202024 Discontinued traMADoL (ULTRAM) 50 mg tabletIndicati ons:Sprain of anterior talofibular ligament of right ankle, initial encounter,Righ t foot sprain, initial encounter Take 1 tablet (50 mg total) by mouth every 8 (eight) hours as needed for pain P.r.n. pain not relieved by meloxicam alone. Take 500 mg of acetaminophen with each dose. Take with food. Collaborating physician Denys Cota MD 15 tablet 08/18/19 25 2024 Discontinued meloxicam (MOBIC) 15 mg tabletIndicati ons:Sprain of anterior talofibular ligament of right ankle, initial encounter,Righ t foot sprain, initial encounter Take 1 tablet (15 mg total) by mouth daily P.r.n. pain and swelling. Take with food. Collaborating physician Denys Cota MD 30 tablet 08/18/19 25 2024 Discontinued amLODIPine (NORVASC) 5 mg tablet Take 1 tablet (5 mg total) by mouth daily 30 tablet 11 12/11/19 25 2024 Discontinued cephalexin (KEFLEX) 500 mg capsuleIndicat ions:Urinary Tract/Genitour inary Infection Take 1 capsule (500 mg total) by mouth 2 (two) times a day for 5 doses 5 capsule 12/10/19 25 2024 Active Problems Problem Noted Date Diagnosed Date Syncope 12/07/2024 Hyperglycemia 12/07/2024 Chest pain, unspecified type 12/06/2024 Sprain of anterior talofibular ligament of right ankle 08/18/2024 Right foot sprain, initial encounter 08/18/2024 Fall from slipping on ice 08/18/2024 CAD S/P percutaneous coronary angioplasty 2023 Bilateral carpal tunnel syndrome 10/11/2023 Moderate malnutrition 10/04/2023 RLQ abdominal pain 10/04/2023 Syncope 10/03/2023 Renal impairment 10/03/2023 Elevated d-dimer 10/03/2023 Lactic acidosis 10/03/2023 Metabolic acidosis, increased anion gap 10/03/19 Normocytic anemia 10/03/2023 Cholelithiasis 10/03/2023 Transient alteration of awareness 10/02/2023 Numbness and tingling of upp er and lower extremities of both sides 03/18/2021 Occipital neuralgia of left side 01/17/2021 Coronary artery disease invo lving inupiat coronary artery of inupiat heart without angina pectoris 09/26/2020 Assessment & Plan (09/26/2020 12:32 PM NURSE EPIDEMIOLOGIST): A plan to further investigate the patient's chest discomfort with Cardiolite treadmill stress testing. She will continue with aggressive secondary risk factor modification we will reach evaluate her known lipid abnormalities with more recent lipid profile. Bilateral carotid artery stenosis 09/26/2020 Assessment & Plan (09/26/2020 12:32 PM NURSE EPIDEMIOLOGIST): It has been a number of years since her carotids have been re-evaluated. We will do so with carotid duplex. Dyspnea on exertion 09/26/2020 Assessment & Plan (09/26/2020 12:31 PM NURSE EPIDEMIOLOGIST): A plan to further investigate the patient's [...] drink = 0.6 oz pur e alcohol) Appiaities Answer Date Recorded In the past 12 months has [facility], gas, oil, or water Rebel Monkey threatened to shut off services in your home? No 12/07/2024 Social Connection and Isolation Panel [NHANES] A nswer Date Recorded In a typical week, how many times do you talk on the phone with family, friends, or neighbors? Once a week 12/07/2024 How often do you get together with friends or re latives? Once a week 12/07/2024 How often do you attend mu-ism or restorationism serv ices? Never 12/07/2024 Do you belong to any clubs o r organizations such as mu-ism groups, unions, fraternal or athletic groups, or school groups? No 12/07/2024 How often do you attend meet ings of the clubs or organizations you belong to? Never 12/07/2024 Are you , , di vorced, , never , or living with a partner? 12/07/2024 AUDIT-C Answer Date Recorded Q1: How often do you have a drink containing alcohol? Never 12/06/2024 Q2: How many drinks containi ng alcohol do you have on a typical day when you are drinking? Patient does not drink Q3: How often do you have si x or more drinks on one occasion? Never 12/06/2024 Overall Financial Resource Strain (CARDIA) Answe r Date Recorded How hard is it for you to pa y for the very basics like food, housing, medical care, and heating? Not very hard 12/07/2024 Hunger Vital Sign Answer Date Recorded Within the past 12 months, y ou worried that your food would run out before you got the money to buy more. Never true 12/08/19 25 Within the past 12 months, t he food you bought just didn't last and you didn't have money to get more. Never true 12/07/2024 PRAPARE - Transportation Answer Date Re corded In the past 12 months, has l ack of transportation kept you from medical appointments or from getting medications? No 11/17 In the past 12 months, has l ack of transportation kept you from meetings, work, or from getting things needed for daily living? No 12/07/2024 Housing Stability Vital Sign Answer Darwin e Recorded In the last 12 months, was t here a time when you were not able to pay the mortgage or rent on time? No 12/07/2024 In the past 12 months, how m any times have you moved where you were living? 0 12/07/2024 At any time in the past 12 m [facility], were you homeless or living in a longterm (including now)? No 12/07/2024 Personal Safety Answer Date Recorded Have you ever been in or are you currently in a harmful physical or emotional relationship or is someone making you feel afraid or unsafe? Denies 12/06/2024 Comments No Sex and Gender Information Value Date Recorded Sex Assigned at Not on file Legal Sex Female 12:36 PM NURSE EPIDEMIOLOGIST Gender Identity Not on file Sexual Orientation Not on file Last Filed Vital Signs Vital Sign Reading Time Taken Comments Blood Pressure 117/73 12/22/2024 2:40 PM CDT Pulse 75 12/22/2024 2:40 PM CDT Temperature 36.1 C (97 F) 12/09/2024 7:22 AM CDT Respiratory Rate 12 12/22/2024 2:40 PM CDT Oxygen Saturation 99% 12/09/2024 7:22 AM CDT Inhaled Oxygen Concentration - - Weight 62.2 kg (137 lb 3.2 oz) 12/22/2024 2:40 P M CDT Height 170.2 cm (5' 7) 12/22/2024 2:40 PM CDT Body Mass Index 21.49 12/22/2024 2:40 PM CDT Plan of Treatment Not on file Medical Devices Implanted Type Area Camera Systems Engineer Device Identifier Shelf Expiration Date Model / Serial / Lot [employer] Lacie Synergy Xd Monorail 2.75mm 24mm 144cm Delivery System 1 Access [id number] - [id number] Implanted:Qty: 1 on 02/14/2024 by Davis Jerome MD at [facility] Stent [employer] 05/17/2025 [id number] / / [id number] [employer] Stent Coronary De Rx Cocr Xience Skypoint [id number] - [id number] Implanted:Qty: 1 on 02/14/2024 by Davis Jerome MD at [facility] Stent [employer] 08/08/2026 [id number] / / [id number] [employer] Lacie Stent Coronary Drug Eluting Rapid Exchange Synergy Xd [id number] [place] [employer] [id number] - [id number] Implanted:Qty: 1 on 02/14/2024 by Davis Jerome MD at [facility] Stent [employer] Lacie 10/04/2025 [id number] / / [id number] [employer] [id number] Xience Alpine 2.75mm 15mm 145cm Rapid Exchange Radiopaque 1 - [id number] Implanted:Qty: 1 on 01/21/2018 by Ronal Barnes MD at [facility] [employer] 10/04/2020 [id number] / [id number] [employer] [id number] Xience Alpine 3.5mm 23mm 145cm Rapid Exchange Radiopaque 1 Access - [id number] Implanted:Qty: 1 on 01/21/2018 by Ronal Barnes MD at [facility] [employer] 06/18/2020 [id number] / / [id number] Procedures Procedure Name Priority Date/Time Associated Diagnosis Comments POCT GLUCOSE DEVICE Routine 12/09/2024 1 1:55 AM CDT POCT GLUCOSE DEVICE Routine 12/09/2024 8 :16 AM CDT EGFR Routine 12/09/2024 2:12 AM CDT DIFFERENTIAL AUTO Routine 12/09/2024 2:1 2 AM CDT COMPREHENSIVE METABOLIC PANEL Routine 12/09/2024 2:12 AM CDT CBC WITH AUTO DIFFERENTIAL Routine 12/09/2024 2:12 AM CDT POCT GLUCOSE DEVICE Routine 12/09/2024 2 :00 AM CDT POCT GLUCOSE DEVICE Routine 12/08/2024 8 :35 PM CDT POCT GLUCOSE DEVICE Routine 12/08/2024 5 :08 PM CDT URINALYSIS, MICROSCOPIC ONLY Routine 12/08/2024 2:15 PM CDT URINE CULTURE Routine 12/08/2024 2:15 PM CDT URINALYSIS AND REFLEX TO MICROSCOPIC AND CULTURE Routine 12/08/2024 2:15 PM CDT POCT GLUCOSE DEVICE Routine 12/08/2024 1 2:19 PM CDT STRESS TEST FOR DUAL READ IP Routine 12/08/2024 9:05 AM CDT NM MPI SPECT (REST AND/OR STRESS) MULTIPLE STUDIES IP Routine 12/08/2024 9:05 AM CDT POCT GLUCOSE DEVICE Routine 12/08/2024 8 :59 AM CDT POCT GLUCOSE DEVICE Routine 12/08/2024 2 :08 AM CDT EGFR Routine 12/08/2024 2:06 AM CDT DIFFERENTIAL AUTO Routine 12/08/2024 2:0 6 AM CDT MAGNESIUM Routine 12/08/2024 2:06 AM CDT COMPREHENSIVE METABOLIC PANEL Routine 12/08/2024 2:06 AM CDT CBC WITH AUTO DIFFERENTIAL Routine 12/08/2024 2:06 AM CDT POCT GLUCOSE DEVICE Routine 12/07/2024 8 :39 PM CDT POCT GLUCOSE DEVICE Routine 12/07/2024 5 :05 PM CDT TRANSTHORACIC ECHO (TTE) COMPLETE W DOPPLER/CF WO CONTRAST Routine 12/07/2024 12:24 PM CDT POCT GLUCOSE DEVICE Routine 12/07/2024 1 1:54 AM CDT POCT GLUCOSE DEVICE Routine 12/07/2024 7 :37 AM CDT DRUGS OF ABUSE SCREEN, URINE WITH REFLEX CONFIRMATION Routine 12/07/2024 6:30 AM CDT POCT GLUCOSE DEVICE Routine 12/07/2024 1 :45 AM CDT POCT GLUCOSE DEVICE Routine 12/06/2024 8 :13 PM CDT POCT GLUCOSE DEVICE Routine 12/06/2024 6 :52 PM CDT TROPONIN T HIGH-SENSITIVITY 4-HR Timed 12/06/2024 5:[address] CHEST ABDOMEN PELVIS WO CONTRAST ED 12/06/2024 4:12 PM CDT XR CHEST 1 VIEW ED 12/06/2024 1:28 PM CDT MAGNESIUM Routine 12/06/2024 12:57 PM CDT PRO B-TYPE NATRIURETIC PEPTIDE STAT 12/06/2024 12:57 PM CDT EGFR STAT 12/06/2024 12:57 PM CDT DIFFERENTIAL AUTO STAT 12/06/2024 12: 57 PM CDT TROPONIN T HIGH-SENSITIVITY SERIES (BASELINE, 2HR, 4HR, 6HR) STAT 12/06/2024 12:57 PM CDT COMPREHENSIVE METABOLIC PANEL STAT 12/06/2024 12:57 PM CDT CBC WITH AUTO DIFFERENTIAL STAT 12/06/2024 12:57 PM CDT ECG 12-LEAD STAT 12/06/2024 12:52 PM CDT HEMOGLOBIN A1C Routine 02/14/2024 10:44 PM CDT LIPID PANEL Routine 08/25/2021 12:40 PM NURSE EPIDEMIOLOGIST Mixed hyperlipidemia ALBUMIN CREATININE RATIO, URINE Routine 01/03/2020 2:56 PM CDT from Last 3 Months or Most Recently Relevant to Health Maintenance Results * POCT glucose (12/09/2024 11:55 AM CDT) [facility] Signature Glucose, POC 180 70 - 199 mg/dL Blood 12/09/2024 11:5 5 AM CDT 12/09/2024 11:55 AM CDT us Judy Courtney MD LAB POCT ORDERABLES - DEVICE F inal Result [facility] ([place]) 1 [facility] Department [place] [address] * POCT glucose (12/09/2024 8:16 AM CDT) Glucose, POC 116 70 - 199 mg/dL Blood 12/09/2024 8:16 AM CDT 12/09/2024 8:16 AM CDT us Judy Courtney MD LAB POCT ORDERABLES - DEVICE F inal Result Performing Organization Address City/[facility]/ZIP Co de Phone Number [facility] ([place]) [address] [facility] [place] [address] * (ABNORMAL) eGFR (12/09/2024 2:12 AM CDT) eGFR 34(L) >=60 mL/min/1. 73 m2 Comment: Interpretive Data [...] interpretive data was last reviewed 2021. Blood 12/09/2024 2:12 AM CDT 12/09/2024 3:21 AM CDT us Glenn Broussard MD LAB BLOOD ORDERABLES Final Resu lt Performing Organization Address City/[facility]/ZIP Co de Phone Number [facility] ([place]) 1 [facility] [place] [address] * Differential, auto (12/09/2024 2:12 AM CDT) Neutrophil abs 2.08 1.50 - 6.50 K/cumm Imm gran abs 0.01 0.00 - 0.10 K/cumm [facility] ([place]) Lymphocyte abs 1.76 0.80 - 3.30 K/cumm [facility] ([place]) Monocyte abs 0.36 0.20 - 0.80 K/cumm [facility] ([place]) Eosinophil abs 0.11 0.00 - 0.50 K/cumm [facility] ([place]) Basophil abs 0.02 0.00 - 0.10 K/cumm [facility] ([place]) Neutrophil pct 47.9 % [facility] ([place]) Comment: Interpretive Data Percent cell count reference ranges are not reported, since discordance with absolute values may lead to misinterpretation of CBC data. Current Interpretive Data was last revised on 2017. Imm gran pct 0.2 % [facility] ([place]) Comment: Interpretive Data Percent cell count reference ranges are not reported, since discordance with absolute values may lead to misinterpretation of CBC data. Current Interpretive Data was last revised on 2017. Lymphocyte pct 40.6 % [facility] ([place]) Comment: Interpretive Data Percent cell count reference ranges are not reported, since discordance with absolute values may lead to misinterpretation of CBC data. Current Interpretive Data was last revised on 2017. Monocyte pct 8.3 % [facility] ([place]) Comment: Interpretive Data Percent cell count reference ranges are not reported, since discordance with absolute values may lead to misinterpretation of CBC data. Current Interpretive Data was last revised on 2017. Eosinophil pct 2.5 % [facility] ([place]) Comment: Interpretive Data Percent cell count reference ranges are not reported, since discordance with absolute values may lead to misinterpretation of CBC data. Current Interpretive Data was last revised on 2017. Basophil pct 0.5 % [facility] ([place]) Comment: Interpretive Data Percent cell count reference ranges are not reported, since discordance with absolute values may lead to misinterpretation of CBC data. Current Interpretive Data was last revised on 2017. Blood 12/09/2024 2:12 AM CDT 12/09/2024 3:21 AM CDT Glenn Broussard MD LAB BLOOD ORDERABLES Final Resu lt [facility] ([place]) 1 [facility] [place] [address] * (ABNORMAL) CBC with auto differential (12/09/2024 2:12 AM CDT) WBC 4.34 3.80 - 9.90 K/cumm Hgb 7.8(L) 11.9 - 15.5 g/dL [facility] ([place]) Hct 23.8(L) 35.6 - 45.5 % [facility] ([place]) Plt 107(L) 150 - 400 K/cumm [facility] ([place]) MPV 11.0 9.1 - 12.3 fL [facility] ([place]) RBC 2.56(L) 3.90 - 5.20 M/cumm [facility] ([place]) MCV 93.0 81.3 - 96.4 fL [facility] ([place]) MCH 30.5 27.1 - 33.3 pg [facility] ([place]) MCHC 32.8 32.3 - 35.7 g/dL [facility] ([place]) RDW CV 14.0 11.1 - 14.9 % [facility] ([place]) RDW SD 47.2 35.7 - 48.1 fL [facility] ([place]) NRBC abs 0.00 0.00 - 0.01 K/cumm [facility] ([place]) Blood 12/09/2024 2:12 AM CDT 12/09/2024 3:21 AM CDT Glenn Broussard MD LAB BLOOD ORDERABLES Final Resu lt [facility] ([place]) 1 [facility] [place] [address] * (ABNORMAL) Comprehensive metabolic panel (12/09/2024 2:12 AM CDT) Sodium 140 135 - 145 mmol/L Potassium, pl 4.3 3.3 - 4.9 mmol/L [facility] ([place]) Chloride 107 97 - 110 mmol/L [facility]) CO2 22 22 - 32 mmol/L [facility] ([place]) Anion gap 12 2 - 15 mmol/L [facility] ([place]) BUN 30(H) 6 - 25 mg/dL [facility] ([place]) Creatinine 1.60(H) 0.60 - 1.10 mg/dL [facility] ([place]) Glucose 163 70 - 199 mg/dL [facility] ([place]) Comment: Interpretive Data Fasting glucose >/= 126 mg/dl is diagnostic for diabetes. Fasting is defined as no caloric intake for at least 8 hours. Fasting glucose between 100 mg/dl to 125 mg/dl is diagnostic of prediabetes. In a patient with classic symptoms of hyperglycemia or hyperglycemic crisis, a random glucose >/= 200 mg/dl is diagnostic for diabetes. In the absence of unequivocal hyperglycemia, results should be confirmed by repeat testing. The classification and Diagnosis of Diabetes Diabetes Care 2021; 46: S19-S40. Current interpretive data was last revised 2022. Calcium 8.4(L) 8.5 - 10.3 mg/dL [facility] ([place]) Bilirubin, total <0.2 0.1 - 1.2 mg/dL [facility] ([place]) Protein, pl 5.8(L) 6.5 - 8.5 g/dL [facility] ([place]) Albumin 3.1(L) 3.5 - 5.0 g/dL [facility] ([place]) Alk phos 47 40 - 130 Units/L [facility] ([place]) ALT 8 7 - 45 Units/L [facility] ([place]) AST 14 10 - 45 Units/L [facility] ([place]) Blood 12/09/2024 2:12 AM CDT 12/09/2024 3:21 AM CDT us Glenn Broussard MD LAB BLOOD ORDERABLES Final Resu lt [facility] ([place]) 1 [facility] [place] [address] * POCT glucose (12/09/2024 2:00 AM CDT) Glucose, POC 175 70 - 199 mg/dL Blood 12/09/2024 2:00 AM CDT 12/09/2024 2:00 AM CDT Judy Courtney MD LAB POCT ORDERABLES - DEVICE F inal Result Performing Organization Address [facility]/ZIP Co de Phone Number [facility] ([place]) 1 [facility] [place] [address] * (ABNORMAL) POCT glucose (12/08/2024 8:35 PM CDT) Glucose, POC 237(H) 70 - 199 mg/dL Blood 12/08/2024 8:35 PM CDT 12/08/2024 8:35 PM CDT Judy Courtney MD LAB POCT ORDERABLES - DEVICE F inal Result Performing Organization Address [facility]/ZIP Co de Phone Number [facility] ([place]) 1 [facility] [place] [address] * POCT glucose (12/08/2024 5:08 PM CDT) Glucose, POC 93 70 - 199 mg/dL Blood 12/08/2024 5:08 PM CDT 12/08/2024 5:08 PM CDT Judy Courtney MD LAB POCT ORDERABLES - DEVICE F inal Result [facility] ([place]) 1 [facility] [place] [address] * (ABNORMAL) Urinalysis reflex to microscopic and culture Urine (12/08/2024 2:15 PM CDT) Color, ur Straw Yellow Clarity, ur Turbid(A) Clear [facility] ([place]) Specific gravity, ur 1.013 1.003 - 1.030 [facility] ([place]) pH, urine 5.5 [facility] ([place]) Comment: Interpretive Data U rine pH is affected by diet, medications, systemic acid-base disturbances, and renal tubular function. pH may affect urinary stone formation. For example, urine pH below 6.0 may help reduce the tendency for calcium phosphate stones and pH greater than 6.0 may reduce the tendency for uric acid stone formation. Source: [facility] [employer] Current Interpretive Data was last revised on 2017 Protein, ur ql Negative Negative [facility] ([place]) Glucose, ur ql 3+(A) Negative [facility] ([place]) Ketones, ur Negative Negative [facility] ([place]) Bilirubin, ur Negative Negative [facility] ([place]) Blood, ur Trace(A) Negative [facility] ([place]) Urobilinogen, ur <2.0 <2.0 mg/dL [facility] ([place]) Nitrite, ur Positive(A) Negative [facility] ([place]) Leukocyte esterase, ur 4+(A) Negative [facility] ([place]) UA reflex comment Reflex to microscopic UA will be performed. [facility] ([place]) Urine 12/08/2024 2:15 PM CDT 12/08/2024 2:26 PM CDT us Judy Courtney MD LAB MICROBIOLOGY - GENERAL ORD ERABLES Final Result [facility] ([place]) 1 [facility] Department [place] [address] * (ABNORMAL) Urinalysis, microscopic only (12/08/2024 2:15 PM CDT) WBC, ur >50(A) 0 - 5 /HPF RBC, ur 3-5(A) 0 - 2 /HPF [facility] ([place]) Epithelial cells, squamous, ur 1-5 0 - 5 /HPF [facility] ([place]) Bacteria, ur 3+(A) [facility] ([place]) Mucous, ur Present(A) [facility] ([place]) Culture Reflex Comment Reflex to urine culture will be performed. [facility] ([place]) Urine 12/08/2024 2:15 PM CDT 12/08/2024 2:26 PM CDT Judy Courtney MD LAB URINE ORDERABLES Final Res ult Performing Organization Address [facility]/ZIP Co de Phone Number [facility] ([place]) 1 [facility] Department [place] [address] * (ABNORMAL) Urine culture Urine (12/08/2024 2:15 PM CDT) Report Final Report: Greater than or equal to 100,000 colonies/mL of Escherichia coli This is a non-standardized susceptibility test. (.) Comment:Testing performed by : [facility], [address] [place]., [address] Organism ESCHERICHIA COLI [facility] ([place]) Urine 12/08/2024 2:15 PM CDT 12/08/2024 10:00 PM CDT Narrative [facility] ([place]) - 12/11/2024 2:53 PM CDT Urine culture reflexed based upon urinalysis results. Testing performed by [facility] ([phone]) Organism Antibiotic Method Susceptibility Escherichia coli Ampicillin INTERPRETATION Resistant Escherichia coli Cefazolin INTERPRETATION Susceptible Escherichia coli Nitrofurantoin INTERPRETATION Susceptible Escherichia coli Gentamicin INTERPRETATION Susceptible Escherichia coli Trimethoprim with Sulfamethoxazole IN TERPRETATION Susceptible Escherichia coli Meropenem INTERPRETATION Susceptible Escherichia coli Cefepime INTERPRETATION Susceptible Escherichia coli Ciprofloxacin INTERPRETATION Susceptible Escherichia coli Ceftazidime INTERPRETATION Susceptible Escherichia coli Ceftriaxone INTERPRETATION Susceptible Escherichia coli Piperacillin/Tazobactam INTERPRETATIO N Susceptible Escherichia coli Cephalexin INTERPRETATION Susceptible Escherichia coli Cefuroxime-axetil INTERPRETATION Susceptible Escherichia coli Cefdinir INTERPRETATION Susceptible Judy Courtney MD LAB MICROBIOLOGY - GENERAL ORD ERABLES Final Result Performing Organization Address City/[facility]/ZIP Co de Phone Number [facility] ([place]) 1 [facility] Department [place] [address] * POCT glucose (12/08/2024 12:19 PM CDT) Glucose, POC 163 70 - 199 mg/dL Blood 12/08/2024 12:1 9 PM CDT 12/08/2024 12:19 PM CDT us Judy Courtney MD LAB POCT ORDERABLES - DEVICE F inal Result [facility] ([place]) 1 [facility] Department [place] [address] * NM MPI SPECT (Rest and/or Stress) Multiple Studies (12/08/2024 9:05 AM CDT) Anatomical Region Laterality Modality Body N/A Nuclear Medicine 12/08/2024 10:1 8 AM CDT Narrative 12/08/2024 10:24 AM CDT EXAM DESCRIPTION: NM MPI SPECT (REST AND/OR STRESS) MULTIPLE STUDIES RADIOPHARMACEUTICAL: Rest: 10.0 mCi Tc-99m tetrofosmin via a left hand IV site Pharmacologic Stress: 31.9 mCi Tc-99m tetrofosmin via a left hand IV site REASON FOR STUDY: Chest pain TECHNIQUE: Standard myocardial perfusion SPECT images were obtained after resting tracer injection. Subsequently, an intravenous infusion of regadenoson was performed. Standard myocardial perfusion images were obtained after tracer injection at the peak effect of the drug. COMPARISON: None FINDINGS: There is decreased perfusion to the lateral wall during stress. Images at rest is not significantly changed, consistent with myocardial infarct. A small peripheral area of reversibility is noted likely representing brittney-infarct ischemia. Gated post-stress images demonstrate mild hypokinesia of the lateral wall. The left ventricular volume is normal and the left ventricular ejection fraction is 67% (normal >45%). IMPRESSION: Predominantly fixed perfusion defect in the lateral wall consistent with myocardial infarct. Normal left ventricular size and systolic function. THIS IS AN ELECTRONICALLY VERIFIED FINAL REPORT 12/08/2024 10:24 AM - Electronically signed by Josie Linn.D. FT: FT Report ID: [id number] Reading Location: [id number] Procedure Note Josie Enriquez MD - 12/08/2024 EXAM DESCRIPTION: NM MPI SPECT (REST AND/OR STRESS) MULTIPLE STUDIES RADIOPHARMACEUTICAL: Rest: 10.0 mCi Tc-99m tetrofosmin via a lefthand IV site Pharmacologic Stress: 31.9 mCi Tc-99m tetrofosmin via a left handIV site REASON FOR STUDY: Chest pain TECHNIQUE: Standard myocardial perfusion SPECT images were obtained after resting tracer injection. Subsequently, an intravenous infusion of regadenoson was performed. Standard myocardial perfusion images wereobtained after tracer injection at the peak effect of the drug. COMPARISON: None FINDINGS: There is decreased perfusion to the lateral wall during stress. Images at rest is not significantly changed, consistent with myocardial infarct. A small peripheral area of reversibility is noted likely representing brittney-infarct ischemia. Gated post-stress images demonstrate mild hypokinesia of the lateralwall. The left ventricular volume is normal and the left ventricular ejection fraction is 67% (normal >45%). IMPRESSION: Predominantly fixed perfusion defect in the lateral wall consistent with myocardial infarct. Normal left ventricular size and systolic function. THIS IS AN ELECTRONICALLY VERIFIED FINAL REPORT 12/08/2024 10:24 AM - Electronically signed by Josie Redding M.D. FT: FT Report ID: [id number] Reading Location: [id number] us Thomas Overton MD [facility] [place]EDURES Final Result * Stress Test for Myocardial Perfusion (12/08/2024 9:05 AM CDT) Anatomical Region Laterality Modality Nuclear Medicine 12/08/2024 6:30 AM CDT Narrative 12/08/2024 9:18 AM CDT [address] [place] [address] [place] Report Patient Name: THALIA MICHELLE A : 1955 Study Date: 12/08/2024 6:30:00 AM Gender: F Tech: Aj Roberto Location: [id number] Ref Provider: THOMAS OVERTON Height(Cm): 170 BSA: 2.6 Weight(Kg): 143 Heart Rate: 128 Order Provider: THOMAS OVERTON PROCEDURES: Pharmacologic SPECT Report.: Myocardial perfusion imaging with Sestamibi SPECT at rest and post regadenoson (Lexiscan) infusion. INDICATIONS: Chest Pain. FINDINGS: Procedure Data: Resting HR 63 bpm Peak HR: 83 bpm Predicted Maximal HR 150 bpm Target HR: 128 bpm Percent Max Predicted HR Achieved: 55.33 % Baseline BP: 185/80 mmHg Peak BP: 179/76 mmHg Exercise Time: 00:15 Medications: Free Text. Performed By: Sue Lemon. Supervising Physician: The Supervising Physician is ymui bull. Reason for Termination: Lexiscan protocol complete. Resting ECG: Normal sinus rhythm at 62 beats per minute, normal axis. Post Pharm ECG: No diagnostic ST changes. Arrhythmia: No arrhythmias seen. Cardiac Symptoms With Stress: Symptoms with stress were None. Exam Interpreted: Read by . CONCLUSIONS: 1. Negative Lexiscan pharmacologic stress test for chest pain or EKG changes. 2. Nuclear images are pending and they will be reported separately. Electronically Signed By: Dr Yumi Bull 12/08/2024 8:57:07 AM CDT Procedure Note Yumi Bull MD - 12/08/[address] [place] [address] [email or web address] Report Patient Name: THALIA MICHELLE A : 1955 Study Date: 12/08/2024 6:30:00 AM Gender: F Tech: Aj Roberto Location: [id number] Ref Provider: THOMAS OVERTON Height(Cm): 170 BSA: 2.6 Weight(Kg): 143 Heart Rate: 128 Order Provider: THOMAS OVERTON PROCEDURES: Pharmacologic SPECT Report.: Myocardial perfusion imaging with Sestamibi SPECT at rest and postregadenoson (Lexiscan) infusion. INDICATIONS: Chest Pain. FINDINGS: Procedure Data: Resting HR 63 bpm Peak HR: 83 bpm Predicted Maximal HR 150 bpm Target HR: 128 bpm Percent Max Predicted HR Achieved: 55.33 % Baseline BP: 185/80 mmHg Peak BP: 179/76 mmHg Exercise Time: 00:15 Medications: Free Text. Performed By: Sue Lemon. Supervising Physician: The Supervising Physician is yumi bull. Reason for Termination: Lexiscan protocol complete. Resting ECG: Normal sinus rhythm at 62 beats per minute, normal axis. Post Pharm ECG: No diagnostic ST changes. Arrhythmia: No arrhythmias seen. Cardiac Symptoms With Stress: Symptoms with stress were None. Exam Interpreted: Read by . CONCLUSIONS: 1. Negative Lexiscan pharmacologic stress test for chest pain or EKGchanges. 2. Nuclear images are pending and they will be reported separately. Electronically Signed By: Dr Yumi Bull 12/08/2024 8:57:07 AM CDT us Thomas Overton MD CV STRESS PROCEDURES Final Resu lt * POCT glucose (12/08/2024 8:59 AM CDT) Glucose, POC 140 70 - 199 mg/dL Blood 12/08/2024 8:59 AM CDT 12/08/2024 8:59 AM CDT us Judy Courtney MD LAB POCT ORDERABLES - DEVICE F inal Result [facility] ([place]) 1 [facility] [place] [address] * POCT glucose (12/08/2024 2:08 AM CDT) Glucose, POC 141 70 - 199 mg/dL Blood 12/08/2024 2:08 AM CDT 12/08/2024 2:08 AM CDT us Thomas Overton MD LAB POCT ORDERABLES - DEVICE Fi nal Result Performing Organization Address [facility] Co de Phone Number [facility] ([place]) 1 [facility] [place] [address] * (ABNORMAL) eGFR (12/08/2024 2:06 AM CDT) eGFR 29(L) >=60 mL/min/1. 73 m2 [...] interpretive data was last reviewed 2021. Blood 12/08/2024 2:06 AM CDT 12/08/2024 3:11 AM CDT us Glenn Broussard MD LAB BLOOD ORDERABLES Final Resu lt [facility] ([place]) 1 [facility] Department [place] [address] * Differential, auto (12/08/2024 2:06 AM CDT) Neutrophil abs 2.65 1.50 - 6.50 K/cumm Imm gran abs 0.01 0.00 - 0.10 K/cumm [facility] ([place]) Lymphocyte abs 2.18 0.80 - 3.30 K/cumm [facility] ([place]) Monocyte abs 0.47 0.20 - 0.80 K/cumm [facility] ([place]) Eosinophil abs 0.12 0.00 - 0.50 K/cumm [facility] ([place]) Basophil abs 0.02 0.00 - 0.10 K/cumm [facility] ([place]) Neutrophil pct 48.6 % [facility]) Comment: Interpretive Data Percent cell count reference ranges are not reported, since discordance with absolute values may lead to misinterpretation of CBC data. Current Interpretive Data was last revised on 2017. Imm gran pct 0.2 % [facility] ([place]) Comment: Interpretive Data Percent cell count reference ranges are not reported, since discordance with absolute values may lead to misinterpretation of CBC data. Current Interpretive Data was last revised on 2017. Lymphocyte pct 40.0 % [facility] ([place]) Comment: Interpretive Data Percent cell count reference ranges are not reported, since discordance with absolute values may lead to misinterpretation of CBC data. Current Interpretive Data was last revised on 2017. Monocyte pct 8.6 % [facility] ([place]) Comment: Interpretive Data Percent cell count reference ranges are not reported, since discordance with absolute values may lead to misinterpretation of CBC data. Current Interpretive Data was last revised on 2017. Eosinophil pct 2.2 % [facility]) Comment: Interpretive Data Percent cell count reference ranges are not reported, since discordance with absolute values may lead to misinterpretation of CBC data. Current Interpretive Data was last revised on 2017. Basophil pct 0.4 % [facility] ([place]) Comment: Interpretive Data Percent cell count reference ranges are not reported, since discordance with absolute values may lead to misinterpretation of CBC data. Current Interpretive Data was last revised on 2017. Blood 12/08/2024 2:06 AM CDT 12/08/2024 3:11 AM CDT us Glenn Broussard MD LAB BLOOD ORDERABLES Final Resu lt [facility] ([place]) 1 [facility] Department [place] [address] * (ABNORMAL) CBC with auto differential (12/08/2024 2:06 AM CDT) WBC 5.45 3.80 - 9.90 K/cumm Hgb 8.3(L) 11.9 - 15.5 g/dL [facility] ([place]) Hct 25.0(L) 35.6 - 45.5 % [facility] ([place]) Plt 108(L) 150 - 400 K/cumm [facility] ([place]) MPV 10.8 9.1 - 12.3 fL [facility] ([place]) RBC 2.70(L) 3.90 - 5.20 M/cumm [facility] ([place]) MCV 92.6 81.3 - 96.4 fL [facility] ([place]) MCH 30.7 27.1 - 33.3 pg [facility] ([place]) MCHC 33.2 32.3 - 35.7 g/dL [facility] ([place]) RDW CV 13.8 11.1 - 14.9 % [facility]) RDW SD 46.3 35.7 - 48.1 fL [facility] ([place]) NRBC abs 0.00 0.00 - 0.01 K/cumm [facility] ([place]) Blood 12/08/2024 2:06 AM CDT 12/08/2024 3:11 AM CDT Glenn Broussard MD LAB BLOOD ORDERABLES Final Resu lt [facility] ([place]) 1 [facility] [place] [address] * Magnesium (12/08/2024 2:06 AM CDT) Magnesium 1.8 1.4 - 2.5 mg/dL Blood 12/08/2024 2:06 AM CDT 12/08/2024 3:11 AM CDT Glenn Broussard MD LAB BLOOD ORDERABLES Final Resu lt Performing Organization Address [facility] Co de Phone Number [facility] ([place]) 1 [place] [address] * (ABNORMAL) Comprehensive metabolic panel (12/08/2024 2:06 AM CDT) Sodium 141 135 - 145 mmol/L Potassium, pl 4.4 3.3 - 4.9 mmol/L [facility] ([place]) Chloride 107 97 - 110 mmol/L [facility]) CO2 22 22 - 32 mmol/L [facility] Anion gap 12 2 - 15 mmol/L [facility] BUN 28(H) 6 - 25 mg/dL [facility] ([place]) Creatinine 1.86(H) 0.60 - 1.10 mg/dL [facility] ([place]) Glucose 130 70 - 199 mg/dL [facility] ([place]) Comment: Interpretive Data Fasting glucose >/= 126 mg/dl is diagnostic for diabetes. Fasting is defined as no caloric intake for at least 8 hours. Fasting glucose between 100 mg/dl to 125 mg/dl is diagnostic of prediabetes. In a patient with classic symptoms of hyperglycemia or hyperglycemic crisis, a random glucose >/= 200 mg/dl is diagnostic for diabetes. In the absence of unequivocal hyperglycemia, results should be confirmed by repeat testing. The classification and Diagnosis of Diabetes Diabetes Care 2021; 46: S19-S40. Current interpretive data was last revised 2022. Calcium 8.6 8.5 - 10.3 mg/dL [facility] ([place]) Bilirubin, total <0.2 0.1 - 1.2 mg/dL [facility] ([place]) Protein, pl 6.2(L) 6.5 - 8.5 g/dL [facility] ([place]) Albumin 3.4(L) 3.5 - 5.0 g/dL [facility] ([place]) Alk phos 46 40 - 130 Units/L [facility] ([place]) ALT 9 7 - 45 Units/L [facility]) AST 13 10 - 45 Units/L [facility] ([place]) Blood 12/08/2024 2:06 AM CDT 12/08/2024 3:11 AM CDT us Glenn Broussard MD LAB BLOOD ORDERABLES Final Resu lt Performing Organization Address City/[facility]/ZIP Co de Phone Number [facility] ([place]) 1 [facility] [place] [address] * POCT glucose (12/07/2024 8:39 PM CDT) Glucose, POC 169 70 - 199 mg/dL Blood 12/07/2024 8:39 PM CDT 12/07/2024 8:39 PM CDT us Thomas Overton MD LAB POCT ORDERABLES - DEVICE Fi nal Result Performing Organization Address City/[facility]/ZIP Co de Phone Number [facility] ([place]) 1 [facility] [place] [address] * POCT glucose (12/07/2024 5:05 PM CDT) Glucose, POC 154 70 - 199 mg/dL Blood 12/07/2024 5:05 PM CDT 12/07/2024 5:05 PM CDT us Thomas Overton MD LAB POCT ORDERABLES - DEVICE Fi nal Result [facility] ([address] Department [place] [address] * TRANSTHORACIC ECHO (TTE) COMPLETE W DOPPLER/CF WO CONTRAST (12/07/2024 12:24 PM CDT) Estimated EF 60-70 % CONS SCIMAGE EF Mod BP 52 % CONS SCIMAGE Anatomical Region Laterality Modality Ultrasound 12/07/2024 11:0 2 AM CDT Narrative 12/07/2024 1:15 PM CDT [address] [address] Echocardiogram Report Patient Name: THALIA MICHELLE : 1955 Study Date: 12/07/2024 11:02:16 AM Gender: F Tech: AD COMPOSITOR Location: [id number] Ref Provider: GLENN BROUSSARD Height(Cm): 170 BSA: 1.75 Weight(Kg): 64.9 Quality: Adequate Order Provider: GLENN BROUSSARD PROCEDURES: Echocardiographic Report: Transthoracic echocardiogram with complete 2D, M-Mode, and color Doppler examination. INDICATIONS: Chest Pain and Syncope. MEASUREMENTS: 2D/MM Value Range Doppler Value Range EF Teich MM 52.0 % [ 54.0 - 74.0 ] SAMIRA Vmax 3.53 cm2 EF Mod BP 52 % [ 54 - 74 ] AV Mean PG 3 mmHg Estimated EF 60-70 % AV Peak Robert 1.15 m/s [ 1.00 - 1.70 ] LVIDd MM 5.00 cm [ 3.80 - 5.20 ] AV VTI 27.22 cm LVIDs MM 3.70 cm [ 2.20 - 3.50 ] LVOT Diam 2.29 cm LVPWd MM 0.90 cm [ 0.60 - 0.90 ] LVOT Peak Robert 0.99 m/s [ 0.70 - 1.10 ] IVSd MM 0.70 cm [ 0.60 - 0.90 ] LVOT VTI 23.60 cm LA Dimension MM 3.26 cm [ 2.70 - 3.80 ] MV E Peak Robert 0.96 m/s [ 0.60 - 1.30 ] AoR Diam MM 2.60 cm [ 2.70 - 3.70 ] MV A Peak Robert 1.01 m/s [ 1.00 - 1.20 ] ACS MM 1.53 cm MV Mean PG 2 mmHg MV PHT 71 msec [ 20 - 100 ] MVA 3.10 MV Decel Time 209 msec [ 104 - 258 ] PV Peak Robert 0.90 m/s [ 0.40 - 0.80 ] TR Peak Robert 1.81 m/s [ 1.00 - 2.80 ] TR Peak PG 15 mmHg RVSP 18.00 mmHg [ 10.00 - 36.00 ] PA Pressure 18.00 mmHg [ 10.00 - 36.00 ] 2D/MM Value Range Doppler Value Range - FINDINGS: Atrial Septum: Normal atrial septum. Left Ventricle: Normal left ventricular size. Normal left ventricular wall thickness. Normal global left ventricular systolic function. Impaired diastolic relaxation Grade I. Ejection fraction is measured at 52 %. Ejection Fraction is estimated to be 60-70 %. Left Atrium: The left atrium is normal in size. Right Ventricle: Normal right ventricular size. Normal right ventricular systolic function. Right Atrium: The right atrium is normal in size. Aortic Valve: No evidence of hemodynamically significant aortic stenosis by Doppler. Aortic cusps appear mildly sclerotic. Trace aortic valve regurgitation. Mitral Valve: Mitral valve leaflets appear mildly thickened. Trivial regurgitation of the mitral valve. Pulmonic Valve: Normal structure of the pulmonic valve. No evidence of pulmonic regurgitation. Tricuspid Valve: Normal structure of the tricuspid valve. Normal right ventricular systolic pressure. Trivial regurgitation in the tricuspid valve. Pericardium: Normal pericardium with no significant pericardial effusion. Aorta: Normal aortic root. Sinus of Valsalva is normal. Aortic arch is normal. Descending aorta is normal. IVC: Normal size and normal respiratory collapse consistent with normal right atrial pressure (<5 mmHg). Pulmonary Artery: Pulmonary artery not well visualized. CONCLUSIONS: Normal left ventricular size. Normal left ventricular wall thickness. Normal global left ventricular systolic function. Impaired diastolic relaxation Grade I. Ejection fraction is measured at 52 %. Ejection Fraction is estimated to be 60-70 %. Normal right ventricular size. Normal right ventricular systolic function. Mitral valve leaflets appear mildly thickened. Trivial regurgitation of the mitral valve. No evidence of hemodynamically significant aortic stenosis by Doppler. Aortic cusps appear mildly sclerotic. Trace aortic valve regurgitation. Normal structure of the tricuspid valve. Normal right ventricular systolic pressure. Trivial regurgitation in the tricuspid valve. Normal pericardium with no significant pericardial effusion. Electronically Signed By: Bela Ponce MD 12/07/2024 1:14:18 PM CDT Procedure Note Bela Ponce MD - 12/07/[address] [address] Echocardiogram Report Patient Name: THALIA MICHELLE : 1955 Study Date: 12/07/2024 11:02:16 AM Gender: F Tech: SUSAN Location: [id number] Ref Provider: GLENN BROUSSARD Height(Cm): 170 BSA: 1.75 Weight(Kg): 64.9 Quality: Adequate Order Provider: GLENN BROUSSARD PROCEDURES: Echocardiographic Report: Transthoracic echocardiogram with complete 2D, M-Mode, and color Dopplerexamination. INDICATIONS: Chest Pain and Syncope. MEASUREMENTS: 2D/MM Value Range Doppler ValueRange EF Teich MM 52.0 % [ 54.0 - 74.0 ] SAMIRA Vmax 3.53cm2 EF Mod BP 52 % [ 54 - 74 ] AV Mean PG 3 mmHg Estimated EF 60-70 % AV Peak Robert 1.15 m/s[ 1.00 - 1.70 ] LVIDd MM 5.00 cm [ 3.80 - 5.20 ] AV VTI 27.22cm LVIDs MM 3.70 cm [ 2.20 - 3.50 ] LVOT Diam 2.29cm LVPWd MM 0.90 cm [ 0.60 - 0.90 ] LVOT Peak Robert 0.99 m/s[ 0.70 - 1.10 ] IVSd MM 0.70 cm [ 0.60 - 0.90 ] LVOT VTI 23.60cm LA Dimension MM 3.26 cm [ 2.70 - 3.80 ] MV E Peak Robert 0.96 m/s[ 0.60 - 1.30 ] AoR Diam MM 2.60 cm [ 2.70 - 3.70 ] MV A Peak Robert 1.01 m/s[ 1.00 - 1.20 ] ACS MM 1.53 cm MV Mean PG 2 mmHg MV PHT 71 msec [ 20 - 100 ] MVA 3.10 MV Decel Time 209 msec [ 104 - 258 ] PV Peak Robert 0.90 m/s [ 0.40 - 0.80 ] TR Peak Robert 1.81 m/s [ 1.00 - 2.80 ] TR Peak PG 15 mmHg RVSP 18.00 mmHg [ 10.00 - 36.00 ] PA Pressure 18.00 mmHg [ 10.00 - 36.00 ] 2D/MM Value Range Doppler ValueRange - FINDINGS: Atrial Septum: Normal atrial septum. Left Ventricle: Normal left ventricular size. Normal left ventricular wall thickness.Normal global left ventricular systolic function. Impaired diastolic relaxation Grade I.Ejection fraction is measured at 52 %. Ejection Fraction is estimated to be 60-70 %. Left Atrium: The left atrium is normal in size. Right Ventricle: Normal right ventricular size. Normal right ventricular systolicfunction. Right Atrium: The right atrium is normal in size. Aortic Valve: No evidence of hemodynamically significant aortic stenosis by Doppler.Aortic cusps appear mildly sclerotic. Trace aortic valve regurgitation. Mitral Valve: Mitral valve leaflets appear mildly thickened. Trivial regurgitation ofthe mitral valve. Pulmonic Valve: Normal structure of the pulmonic valve. No evidence of pulmonicregurgitation. Tricuspid Valve: Normal structure of the tricuspid valve. Normal right ventricular systolicpressure. Trivial regurgitation in the tricuspid valve. Pericardium: Normal pericardium with no significant pericardial effusion. Aorta: Normal aortic root. Sinus of Valsalva is normal. Aortic arch is normal.Descending aorta is normal. IVC: Normal size and normal respiratory collapse consistent with normal rightatrial pressure (<5 mmHg). Pulmonary Artery: Pulmonary artery not well visualized. CONCLUSIONS: Normal left ventricular size. Normal left ventricular wall thickness.Normal global left ventricular systolic function. Impaired diastolic relaxation Grade I.Ejection fraction is measured at 52 %. Ejection Fraction is estimated to be 60-70 %. Normal right ventricular size. Normal right ventricular systolicfunction. Mitral valve leaflets appear mildly thickened. Trivial regurgitation ofthe mitral valve. No evidence of hemodynamically significant aortic stenosis by Doppler.Aortic cusps appear mildly sclerotic. Trace aortic valve regurgitation. Normal structure of the tricuspid valve. Normal right ventricular systolicpressure. Trivial regurgitation in the tricuspid valve. Normal pericardium with no significant pericardial effusion. Electronically Signed By: Bela Ponce MD 12/07/2024 1:14:18 PM CDT us Glenn Broussard MD CV ECHO PROCEDURES Final Result * POCT glucose (12/07/2024 11:54 AM CDT) Glucose, POC 185 70 - 199 mg/dL Blood 12/07/2024 11:5 4 AM CDT 12/07/2024 11:54 AM CDT us Thomas Overton MD LAB POCT ORDERABLES - DEVICE Fi nal Result [facility] [place]) 5 [facility] [place] [address] * POCT glucose (12/07/2024 7:37 AM CDT) Glucose, POC 108 70 - 199 mg/dL Blood 12/07/2024 7:37 AM CDT 12/07/2024 7:37 AM CDT us Thomas Overton MD LAB POCT ORDERABLES - DEVICE Fi nal Result [facility] ([place]) 1 [facility] Department [place] [address] * (ABNORMAL) Drugs of Abuse Screen, Urine with Reflex Confirmation (12/07/2024 6:30 AM CDT) Amphetamine, ur Not Detected CutOff 500ng/mL Comment: Interpretive Data - Amphetamines: Samples containing greater than 500 ng/mL d-methamphetamine or other cross-reacting amphetamine compounds are reported as positive. Amphetamine immunoassays are subject to significant false positive rates due to cross-reactivity of non-amphetamine drugs. Confirmatory testing required for definitive results. Current Interpretive Data was last reviewed 2023. Barbiturates, ur Not Detected CutOff 200ng/mL [facility] ([place]) Comment: Interpretive Data - Barbiturates: Samples containing greater than 200 ng/mL secobarbital or other cross-reacting barbiturate compounds are reported as positive. False positive and false negative results are possible. Confirmatory testing required for definitive results. Current Interpretive Data was last reviewed 2023. Benzodiazepines, ur Not Detected CutOff 100ng/mL [facility] ([place]) Comment: Interpretive Data - Benzodiazepines: Samples containing greater than 100 ng/mL nordiazepam or other cross-reacting compounds are reported as positive. False positive and false negative results are possible. Confirmatory testing required for definitive results. Current Interpretive Data was last reviewed 2023. Cannabinoids, ur Screen Positive, presumptive (A) CutOff 50 ng/mL [facility] ([place]) Comment: Interpretive Data - Cannabinoids: Samples containing greater than 50 ng/mL delta-9 THC -COOH or other cross- reacting compounds are reported as positive. False positive and false negative results are possible. Confirmatory testing required for definitive results. Current Interpretive Data was last reviewed 2023. Cocaine, ur Not Detected CutOff 150ng/mL [facility] ([place]) Comment: Interpretive Data - Cocaine: Samples containing greater than 150 ng/mL benzoylecgonine or other cross- reacting compounds are reported as positive. False positive and false negative results are possible. Confirmatory testing required for definitive results. Current Interpretive Data was last reviewed 2023. Fentanyl, Ur Not Detected CutOff 5 ng/mL [facility] ([place]) Comment: Interpretive Data - Fentanyl: Samples containing greater than 5 ng/mL norfentanyl, fentanyl, or other cross-reacting fentanyl compounds are reported as positive. False positive and false negative results are possible. Confirmatory testing required for definitive results. Current Interpretive Data was last reviewed 2023. Methadone, ur Not Detected CutOff 300ng/mL [facility] ([place]) Comment: Interpretive Data - Methadone: Samples containing greater than 300 ng/mL d,l-methadone or other cross-reacting compounds are reported as positive. False positive and false negative results are possible. Confirmatory testing required for definitive results. Current Interpretive Data was last reviewed 2023. Opiates, ur Not Detected CutOff 300ng/mL [facility] ([place]) Comment: Interpretive Data - Opiates: Samples containing greater than 300 ng/mL morphine or other cross-reacting compounds are reported as positive. False positive and false negative results are possible. Confirmatory testing required for definitive results. Current Interpretive Data was last reviewed 2023. Oxycodone, ur Not Detected CutOff 100ng/mL [facility] ([place]) Comment: Interpretive Data - Oxycodone: Samples containing greater than 100 ng/mL oxycodone or other cross-reacting compounds are reported as positive. False positive and false negative results are possible. Confirmatory testing required for definitive results. Current Interpretive Data was last reviewed 2023. Phencyclidine, ur Not Detected CutOff 25 ng/mL [facility] ([place]) Comment: Interpretive Data - Phencyclidine: Samples containing greater than 25 ng/mL phencyclidine or other cross-reacting compounds are reported as positive. False positive and false negative results are possible. Confirmatory testing required for definitive results. Current Interpretive Data was last reviewed 2023. Urine Creatinine 54 mg/dL [facility] ([place]) Comment: Interpretive Data Urine Creatinine: < 10 mg/dL is extremely dilute = or > 10 but < 20 mg/dL is dilute = or > 20 mg/dL is normal Current Interpretive Data was last revised on 2017. Urine 12/07/2024 6:30 AM CDT 12/07/2024 6:41 AM CDT Narrative [facility] ([place]) - 12/07/2024 7:04 AM CDT Drug of Abuse screening is performed by immunoassay for medical purposes only. This is not to be used for Pain Management purposes. If Detected, confirmation testing will be performed for Amphetamines, Cocaine, Fentanyl, Methadone, Opiates, Oxycodone or Phencyclidine. Glenn Broussard MD LAB URINE ORDERABLES Final Resu lt Performing Organization Address City/[facility]/ZIP Co de Phone Number [facility] ([place]) 1 [facility] [place] [address] * POCT glucose (12/07/2024 1:45 AM CDT) Glucose, POC 109 70 - 199 mg/dL Blood 12/07/2024 1:45 AM CDT 12/07/2024 1:45 AM CDT us Thalia Hill MD LAB POCT ORDERABLES - DEV ICE Final Result Performing Organization Address [facility] de Phone Number KONG MEREDITH ([place]) 1 [facility] [place] [address] * POCT glucose (12/06/2024 8:13 PM CDT) Glucose, POC 129 70 - 199 mg/dL Blood 12/06/2024 8:13 PM CDT 12/06/2024 8:13 PM CDT Thalia Hill MD LAB POCT ORDERABLES - DEV ICE Final Result Performing Organization Address [facility] Co de Phone Number KONG MEREDITH ([place]) 1 [facility] [place] [address] * POCT glucose (12/06/2024 6:52 PM CDT) Glucose, POC 92 70 - 199 mg/dL Blood 12/06/2024 6:52 PM CDT 12/06/2024 6:52 PM CDT Thalia Hill MD LAB POCT ORDERABLES - DEV ICE Final Result Performing Organization Address [facility] Co de Phone Number KONG MEREDITH ([place]) 1 [facility] [place] [address] * Troponin T high-sensitivity 4-hour (12/06/2024 5:42 PM CDT) Trop T hs 13 <=14 ng/L Comment: Interpretive Data For further hscTnT resources including the diagnostic algorithm and an aid in interpretation, copy and paste this link: https://nrl.testcatalog.org/show/hsTrop Current Interpretive Data last revised 2020. Trop T hs delta -3 ng/L [facility] ([place]) Trop T hs interp Insignificant [facility] ([place]) Blood 12/06/2024 5:42 PM CDT 12/06/2024 5:56 PM CDT Lexx Wall MD LAB BLOOD ORDERABLES Final Res ult Performing Organization Address [facility] Co de Phone Number KONG MEREDITH ([place]) 1 [facility] [place] [address] * CT Chest Abdomen Pelvis WO Contrast (12/06/2024 4:12 PM CDT) Anatomical Region Laterality Modality Body N/A Computed Tomogra phy 12/06/2024 5:30 PM CDT Narrative 12/06/2024 5:40 PM CDT EXAM DESCRIPTION: CT CHEST ABDOMEN PELVIS WO CONTRAST REASON FOR STUDY: Abdominal pain, acute, nonlocalized, Dyspnea, chronic, unclear etiology SOB, lightheaded, low blood pressure and fatigue for 3 weeks. Pt also reports chest pain intermittently, worse if she is walking. HX of heart attack and cardiac stents. Cardiac stents placed August of this year per pt. TECHNIQUE: CT scan of the chest, abdomen, and pelvis performed without intravenous and without oral contrast using helical scanning technique. Reconstructed coronal and sagittal MPR images reviewed. All images stored on PACS. Automated exposure control was used as a dose optimization technique for this examination. COMPARISON: 10/03/2023 FINDINGS: The sensitivity for detection of visceral lesions is diminished without the use of intravenous contrast. CHEST LUNGS: No focal consolidation is identified. Postsurgical changes of the right middle lobe. Multiple calcified granulomas. There are numerous small pulmonary nodules which are unchanged from the prior examination. For instance there is a 4 mm pulmonary nodule left lower lobe (series 3, image 68). No new or enlarging pulmonary nodule is identified. Central airways patent. PLEURA: No effusion. No pneumothorax. MEDIASTINUM/MELANY: No identified masses or abnormal nodes. HEART: Heart size is normal with no pericardial effusion. CORONARY ARTERY CALCIFICATION: Severe coronary artery calcification. Coronary stents. VASCULATURE CHEST: Atheromatous disease of the aorta without aneurysm. AXILLA: No adenopathy. CHEST WALL: No masses. No subcutaneous air. HARDWARE/LINES/TUBES: None. MUSCULOSKELETAL CHEST: No significant abnormality. ABDOMEN/PELVIS LIVER: Unremarkable for noncontrast technique. GALLBLADDER: Stones. No wall thickening or pericholecystic fluid BILE DUCTS: No intrahepatic or extrahepatic ductal dilatation. SPLEEN: Normal size. No focal lesions. PANCREAS: No identified cystic or solid masses. No significant calcifications. No adjacent inflammation or peripancreatic fluid collections. Pancreatic duct not dilated. ADRENALS: Normal. KIDNEYS/URINARY TRACT: No identified significant cystic or solid masses. No stones. No hydronephrosis or hydroureter. Urinary bladder is unremarkable. GI: Mild hiatal hernia. No evidence of small-bowel obstruction. Moderate amount of stool in the colon may represent constipation. PERITONEUM: No ascites or free air. RETROPERITONEUM: No mass or adenopathy. REPRODUCTIVE: The uterus is surgically absent. VASCULATURE ABDOMEN: Severe atherosclerotic calcification of the aorta. MUSCULOSKELETAL ABDOMEN PELVIS: No acute finding. OTHER: No significant abnormality. IMPRESSION: No acute abnormality in the chest, abdomen or pelvis. Cholelithiasis. THIS IS AN ELECTRONICALLY VERIFIED FINAL REPORT 12/06/2024 5:40 PM - Electronically signed by Burak Esquivel M.D. MM: JONATHAN Report ID: [id number] Reading Location: [id number] Procedure Note Burak Esquivel MD - 12/06/2024 EXAM DESCRIPTION: CT CHEST ABDOMEN PELVIS WO CONTRAST REASON FOR STUDY: Abdominal pain, acute, nonlocalized, Dyspnea, chronic, unclear etiology SOB, lightheaded, low blood pressure and fatigue for 3 weeks. Pt alsoreports chest pain intermittently, worse if she is walking. HX of heart attack and cardiac stents. Cardiac stents placed August of this year per pt. TECHNIQUE: CT scan of the chest, abdomen, and pelvis performed without intravenous and without oral contrast using helical scanning technique. Reconstructed coronal and sagittal MPR images reviewed. All images storedon PACS. Automated exposure control was used as a dose optimizationtechnique for this examination. COMPARISON: 10/03/2023 FINDINGS: The sensitivity for detection of visceral lesions is diminished withoutthe use of intravenous contrast. CHEST LUNGS: No focal consolidation is identified. Postsurgical changes ofthe right middle lobe. Multiple calcified granulomas. There are numeroussmall pulmonary nodules which are unchanged from the prior examination. For instance there is a 4 mm pulmonary nodule left lower lobe (series 3, image 68). No new or enlarging pulmonary nodule is identified. Central airways patent. PLEURA: No effusion. No pneumothorax. MEDIASTINUM/MELANY: No identified masses or abnormal nodes. HEART: Heart size is normal with no pericardial effusion. CORONARY ARTERY CALCIFICATION: Severe coronary artery calcification. Coronary stents. VASCULATURE CHEST: Atheromatous disease of the aorta without aneurysm. AXILLA: No adenopathy. CHEST WALL: No masses. No subcutaneous air. HARDWARE/LINES/TUBES: None. MUSCULOSKELETAL CHEST: No significant abnormality. ABDOMEN/PELVIS LIVER: Unremarkable for noncontrast technique. GALLBLADDER: Stones. No wall thickening or pericholecystic fluid BILE DUCTS: No intrahepatic or extrahepatic ductal dilatation. SPLEEN: Normal size. No focal lesions. PANCREAS: No identified cystic or solid masses. No significant calcifications. No adjacent inflammation or peripancreatic fluidcollections. Pancreatic duct not dilated. ADRENALS: Normal. KIDNEYS/URINARY TRACT: No identified significant cystic or solid masses.No stones. No hydronephrosis or hydroureter. Urinary bladder isunremarkable. GI: Mild hiatal hernia. No evidence of small-bowel obstruction.Moderate amount of stool in the colon may represent constipation. PERITONEUM: No ascites or free air. RETROPERITONEUM: No mass or adenopathy. REPRODUCTIVE: The uterus is surgically absent. VASCULATURE ABDOMEN: Severe atherosclerotic calcification of the aorta. MUSCULOSKELETAL ABDOMEN PELVIS: No acute finding. OTHER: No significant abnormality. IMPRESSION: No acute abnormality in the chest, abdomen or pelvis. Cholelithiasis. THIS IS AN ELECTRONICALLY VERIFIED FINAL REPORT 12/06/2024 5:40 PM - Electronically signed by Burak Esquivel M.D. MM: MM Report ID: [id number] Reading Location: [id number] Peterson Ford MD IMG CT PROCEDURES Final Resu lt * XR Chest 1 Vw Portable (if patient condition/safety warrant portable) (12/06/2024 1:28 PM CDT) Anatomical Region Laterality Modality Body, Chest N/A Computed Radiogr aphy 12/06/2024 3:06 PM CDT Narrative 12/06/2024 3:07 PM CDT EXAM DESCRIPTION: XR CHEST 1 VIEW REASON FOR STUDY: chest pain SOB, lightheaded, low blood pressure and fatigue for 3 weeks. Pt also reports chest pain intermittently, worse if she is walking. HX of heart attack and cardiac stents. Cardiac stents placed August of this year per pt. TECHNIQUE: 1 radiographic view(s) of the chest. COMPARISON: 10/02/2023 FINDINGS: LUNGS: No focal opacity, pleural effusion, or pneumothorax. There is a suture line in the right lung. HEART/MEDIASTINUM: Elevation of the right hemidiaphragm is unchanged from prior exam. Stable cardiac and mediastinal contours. LINES/TUBES: None. BONES: No acute osseous abnormality. IMPRESSION: No acute pulmonary process. THIS IS AN ELECTRONICALLY VERIFIED FINAL REPORT 12/06/2024 3:07 PM - Electronically signed by Burak Esquivel M.D. MM: MM Report ID: [id number] Reading Location: [id number] Procedure Note Burak Esquivel MD - 12/06/2024 EXAM DESCRIPTION: XR CHEST 1 VIEW REASON FOR STUDY: chest pain SOB, lightheaded, low blood pressure and fatigue for 3 weeks. Pt alsoreports chest pain intermittently, worse if she is walking. HX of heart attack and cardiac stents. Cardiac stents placed August of this year per pt. TECHNIQUE: 1 radiographic view(s) of the chest. COMPARISON: 10/02/2023 FINDINGS: LUNGS: No focal opacity, pleural effusion, or pneumothorax. There is a suture line in the right lung. HEART/MEDIASTINUM: Elevation of the right hemidiaphragm is unchanged from prior exam. Stable cardiac and mediastinal contours. LINES/TUBES: None. BONES: No acute osseous abnormality. IMPRESSION: No acute pulmonary process. THIS IS AN ELECTRONICALLY VERIFIED FINAL REPORT 12/06/2024 3:07 PM - Electronically signed by Burak Esquivel M.D. MM: MM Report ID: [id number] Reading Location: [id number] Peterson Ford MD IMG XR PROCEDURES Final Resu lt * (ABNORMAL) Troponin T high-sensitivity series (baseline, 2hr, 4hr, 6hr) (12/06/2024 12:57 PM CDT) Trop T hs 16(H) <=14 ng/L Comment: Interpretive Data For further hscTnT resources including the diagnostic algorithm and an aid in interpretation, copy and paste this link: https://nrl.testcatalog.org/show/hsTrop Current Interpretive Data last revised 2020. Blood 12/06/2024 12:5 7 PM CDT 12/06/2024 1:01 PM CDT Peterson Ford MD LAB BLOOD ORDERABLES Final R esult [place] 1 [facility] [place] [address] * (ABNORMAL) eGFR (12/06/2024 12:57 PM CDT) Pathologist [facility] eGFR 31(L) >=60 mL/min/1. 73 m2 Comment: Interpretive Data [...] interpretive data was last reviewed 2021. Blood 12/06/2024 12:5 7 PM CDT 12/06/2024 1:01 PM CDT us Peterson Ford MD LAB BLOOD ORDERABLES Final R esult [place] 1 [facility] [place] [address] * Differential, auto (12/06/2024 12:57 PM CDT) Neutrophil abs 5.16 1.50 - 6.50 K/cumm Imm gran abs 0.03 0.00 - 0.10 K/cumm [facility] ([place]) Lymphocyte abs 2.22 0.80 - 3.30 K/cumm [facility] ([place]) Monocyte abs 0.63 0.20 - 0.80 K/cumm [facility] ([place]) Eosinophil abs 0.12 0.00 - 0.50 K/cumm [facility] ([place]) Basophil abs 0.04 0.00 - 0.10 K/cumm [facility] ([place]) Neutrophil pct 62.8 % [facility] ([place]) Comment: Interpretive Data Percent cell count reference ranges are not reported, since discordance with absolute values may lead to misinterpretation of CBC data. Current Interpretive Data was last revised on 2017. Imm gran pct 0.4 % [facility] ([place]) Comment: Interpretive Data Percent cell count reference ranges are not reported, since discordance with absolute values may lead to misinterpretation of CBC data. Current Interpretive Data was last revised on 2017. Lymphocyte pct 27.1 % [facility] ([place]) Comment: Interpretive Data Percent cell count reference ranges are not reported, since discordance with absolute values may lead to misinterpretation of CBC data. Current Interpretive Data was last revised on 2017. Monocyte pct 7.7 % [facility] ([place]) Comment: Interpretive Data Percent cell count reference ranges are not reported, since discordance with absolute values may lead to misinterpretation of CBC data. Current Interpretive Data was last revised on 2017. Eosinophil pct 1.5 % [facility] ([place]) Comment: Interpretive Data Percent cell count reference ranges are not reported, since discordance with absolute values may lead to misinterpretation of CBC data. Current Interpretive Data was last revised on 2017. Basophil pct 0.5 % [facility] ([place]) Comment: Interpretive Data Percent cell count reference ranges are not reported, since discordance with absolute values may lead to misinterpretation of CBC data. Current Interpretive Data was last revised on 2017. Blood 12/06/2024 12:5 7 PM CDT 12/06/2024 1:01 PM CDT us Peterson Ford MD LAB BLOOD ORDERABLES Final R esult KONG MASOUD ([place]) 1 [facility] Department [place] [address] * (ABNORMAL) Pro B-type natriuretic peptide (12/06/2024 12:57 PM CDT) NT-proBNP 761(H) <=300 pg/mL Comment: Interpretive Comments: A. Dyspnea in Acute Care Setting All Ages: < 300 pg/ml, acute heart failure unlikely. < 50 yrs: 300 - 450 pg/ml, further investigation warranted. > 450 pg/ml, acute heart failure likely. 50 - 74 yrs: 300 - 900 pg/ml, further investigation warranted. > 900 pg/ml, acute heart failure likely . > or = 75 yrs: 450 - 1800 pg/ml, further investigation warranted. > 1800 pg/ml, acute heart failure likely. B. Non-acute Setting < 75 yrs < 125 pg/ml, rules out heart failure. > or = 125 pg/ml, further investigation warranted. > or = 75 yrs < 450 pg/ml, rules out heart failure. > or = 450 pg/ml, further investigation warranted. - Knowledge of each individual patient's NT-proBNP range may be more useful than using similar cut-points for every patient. Please note that marked elevations in NT-proBNP levels may be observed in state other than Left Ventricular Congestive Failure, including: acute coronary syndromes, right heart strain/failure (including pulmonary embolism and cor pulmonale), critical illness, renal failure, as well as advanced age. - References: 1. Roby JL et.al. Eur Heart J. 2006:27:330-337. 2. Brandon RW, Lawrence WOOD. J. AM Mando Cardiol: Cardiovasc Imag. 2009;2: 216- 225. Interpretive Data Last Revised Date: 2018. Blood 12/06/2024 12:5 7 PM CDT 12/06/2024 3:06 PM CDT us Peterson Ford MD LAB BLOOD ORDERABLES Final R esult [facility] [place]) 6 [facility] Department [place] [address] * (ABNORMAL) CBC with auto differential (12/06/2024 12:57 PM CDT) Pathologist [facility] WBC 8.20 3.80 - 9.90 K/cumm Hgb 10.7(L) 11.9 - 15.5 g/dL [facility] ([place]) Hct 32.8(L) 35.6 - 45.5 % [facility] ([place]) Plt 156 150 - 400 K/cumm [facility] ([place]) MPV 10.5 9.1 - 12.3 fL [facility] ([place]) RBC 3.52(L) 3.90 - 5.20 M/cumm [facility] ([place]) MCV 93.2 81.3 - 96.4 fL [facility] ([place]) MCH 30.4 27.1 - 33.3 pg [facility] ([place]) MCHC 32.6 32.3 - 35.7 g/dL [facility] ([place]) RDW CV 14.1 11.1 - 14.9 % [facility] ([place]) RDW SD 47.9 35.7 - 48.1 fL [facility] ([place]) NRBC abs 0.00 0.00 - 0.01 K/cumm [facility] ([place]) Blood Venous blood specimen / Unknown 12/06/2024 12:57 PM CDT 12/06/2024 1:01 PM CDT Peterson Ford MD LAB BLOOD ORDERABLES Final R esult Performing Organization Address City/[facility]/ZIP Co de Phone Number KONG MEREDITH ([place]) 1 [facility] [place] [address] * Magnesium (12/06/2024 12:57 PM CDT) Magnesium 1.8 1.4 - 2.5 mg/dL Blood 12/06/2024 12:5 7 PM CDT 12/06/2024 3:06 PM CDT Peterson Ford MD LAB BLOOD ORDERABLES Final R esult Performing Organization Address City/[facility]/ZIP Co de Phone Number KONG MEREDITH ([place]) 1 [facility] [place] [address] * (ABNORMAL) Comprehensive metabolic panel (12/06/2024 12:57 PM CDT) Sodium 139 135 - 145 mmol/L Potassium, pl 4.8 3.3 - 4.9 mmol/L [facility] ([place]) Chloride 102 97 - 110 mmol/L [facility] ([place]) CO2 23 22 - 32 mmol/L [facility] ([place]) Anion gap 14 2 - 15 mmol/L [facility] ([place]) BUN 26(H) 6 - 25 mg/dL [facility] ([place]) Creatinine 1.77(H) 0.60 - 1.10 mg/dL [facility] ([place]) Glucose 200(H) 70 - 199 mg/dL [facility] ([place]) Comment: Interpretive Data Fasting glucose >/= 126 mg/dl is diagnostic for diabetes. Fasting is defined as no caloric intake for at least 8 hours. Fasting glucose between 100 mg/dl to 125 mg/dl is diagnostic of prediabetes. In a patient with classic symptoms of hyperglycemia or hyperglycemic crisis, a random glucose >/= 200 mg/dl is diagnostic for diabetes. In the absence of unequivocal hyperglycemia, results should be confirmed by repeat testing. The classification and Diagnosis of Diabetes Diabetes Care 202; 46: S19-S40. Current interpretive data was last revised 2022. Calcium 9.9 8.5 - 10.3 mg/dL [facility] ([place]) Bilirubin, total 0.2 0.1 - 1.2 mg/dL [facility] ([place]) Protein, pl 8.0 6.5 - 8.5 g/dL [facility] ([place]) Albumin 4.1 3.5 - 5.0 g/dL [facility] ([place]) Alk phos 48 40 - 130 Units/L [facility] ([place]) ALT 10 7 - 45 Units/L [facility] ([place]) AST 14 10 - 45 Units/L [facility] ([place]) Blood 12/06/2024 12:5 7 PM CDT 12/06/2024 1:01 PM CDT us Peterson Ford MD LAB BLOOD ORDERABLES Final R esult [facility] ([place]) 1 [facility] Department [place] [address] * ECG 12 lead (12/06/2024 12:52 PM CDT) 12/06/2024 12:5 2 PM CDT Narrative [facility] - 12/06/2024 2:42 PM CDT Vent Rate: 76 bpm RR Interval: 784 msec PA Interval: 171 msec QRS Duration: 86 msec QT Interval: 389 msec QTC Interval: 419 msec P-R-T [place]: 73 - 73 - 46 degrees IMPRESSION: SINUS RHYTHM LOW QRS VOLTAGE IN PRECORDIAL LEADS [QRS DEFLECTION < 1.0 mV IN CHEST LEADS] BORDERLINE ECG NO CHANGE FROM PREVIOUS TRACING NOTED Electronically Signed By: Ronal Barnes MD us Peterson Ford MD ECG ORDERABLES Final Result [facility] * (ABNORMAL) Hemoglobin A1c (02/14/2024 10:44 PM CDT) Hgb A1C 5.9(H) 4.0 - 5.6 % Estimated Average Glucose 123 mg/dL KONG MEREDITH ([place]) Comment: The ADA recommends reporting an estimated Average Glucose (eAG) with all Hemoglobin A1c results using the equation derived from a study of 507 normal and diabetic adults. Minority populations were underrepresented and children were not included. (Diabetes Care 31:2022-6460, 2008). The eAG is not equivalent to a fasting glucose. Blood 02/14/2024 10:4 4 PM CDT 02/14/2024 10:47 PM CDT us Davis Jerome MD LAB BLOOD ORDERABLES Final Result KONG MEREDITH ([place]) 1 [facility] Department [place] [address] * (ABNORMAL) Lipid panel (08/25/2021 12:40 PM NURSE EPIDEMIOLOGIST) Cholesterol 143 30 - 199 mg/dL KONG [...] last revised on 2018. Chol/HDL ratio 4 [facility] ([place]) Blood 08/25/2021 12:4 0 PM NURSE EPIDEMIOLOGIST 08/25/2021 12:52 PM NURSE EPIDEMIOLOGIST Rosemarie Petersen AD COMPOSITOR LAB BLOOD ORDERABLES Final Result KONG MEREDITH ([place]) 1 [facility] Department [place] [address] * Albumin Creatinine Ratio, Urine (01/03/2020 2:56 PM CDT) Albumin Ur 36.9 mg/L [facility] ([place]) Comment: Interpretive Data No reference range established. Current interpretive data was last revised 2018. Testing performed by: [facility], [address] [place] [address], [place]., [address] Creatinine Ur 231.4 mg/dL KONG MEREDITH ([place]) Comment: Interpretive Data No reference range established. Current interpretive data was last revised 2018. Testing performed by: [facility], [address] [place] [address], [place]., [address] Albumin Creatinine Ratio, Ur 16 1 - 29 mg/g KONG MEREDITH ([place]) Comment:Testing performed by : [facility], [address] [place] [address], [place]., [address] Urine 01/03/2020 2:56 PM CDT 01/04/2020 9:31 AM CDT Denys Stern DO LAB URINE ORDERABLES Anabell l Result KONG MEREDITH ([place]) 1 [facility] Department [place] [address] from Last 3 Months or Most Recently Relevant to Health Maintenance Insurance [facility] [address] [facility] Advance Directives For more information, please contact: [phone] * Full Code (Latest Code Status on File) Date Activated Date Inactivated Comments 12/06/2024 6:23 PM 12/09/2024 5:37 PM * Full Code Date Activated Date Inactivated Comments 02/14/2024 11:48 AM 02/15/2024 5:24 PM * Full Code Date Activated Date Inactivated Comments 10/03/2023 12:25 AM 10/05/2023 5:14 PM * Full Code Date Activated Date Inactivated Comments 01/22/2018 12:39 AM 01/24/2018 3:33 PM * Full Code Date Activated Date Inactivated Comments 01/22/2018 12:07 AM 01/22/2018 12:39 AM Care Teams Mold Unloader Relationship Specialty Start Date End Date Teri Tirado NP [address] [place] [id number] PCP - General Nurse Practitioner 04/28/24
--- OUTSIDE RECORDS SUMMARY | 2024-12-28 14:28 | XMS_ITS | Clinical Summary ---
Author Organization [facility] Address [address] [place] [address] Care Team Providers Care Manager Management Name Role Phone Teri Tirado NP Primary Care Provider Allergies Active Allergy Reactions Criticality Noted Date [...] Collaborating physician Denys Cota MD 15 tablet 08/18/192024 Discontinued meloxicam (MOBIC) 15 mg tabletIndicati ons:Sprain of anterior talofibular ligament of right ankle, initial encounter,Righ t foot sprain, initial encounter Take 1 tablet (15 mg total) by mouth daily P.r.n. pain and swelling. Take with food. Collaborating physician Denys Cota MD 30 tablet 08/18/192024 Discontinued amLODIPine (NORVASC) 5 mg tablet Take 1 tablet (5 mg total) by mouth daily 30 tablet 12/11/192024 Discontinued cephalexin (KEFLEX) 500 mg capsuleIndicat ions:Urinary Tract/Genitour inary Infection Take 1 capsule (500 mg total) by mouth 2 (two) times a day for 5 doses 5 capsule 12/10/192024 Active Problems Problem Noted Date Diagnosed Date [...] side 01/17/2021 Coronary artery disease invo lving [place] coronary artery of [place] heart without angina pectoris 09/26/2020 Assessment & Plan (09/26/2020 12:32 PM GLASS BULB SILVERER): A plan to further investigate the patient's chest discomfort with Cardiolite treadmill stress testing. She will continue with aggressive secondary risk factor modification we will reach evaluate her known lipid abnormalities with more recent lipid profile. Bilateral carotid artery stenosis 09/26/2020 Assessment & Plan (09/26/2020 12:32 PM GLASS BULB SILVERER): It has been a number of years since her carotids have been re-evaluated. We will do so with carotid duplex. Dyspnea on exertion 09/26/2020 Assessment & Plan (09/26/2020 12:31 PM GLASS BULB SILVERER): A plan to further investigate the patient's [...] Description 12/22/2024 2:30 PM CDT Office Visit [facility] at [address] [place] [phone] Davis Jerome MD Coronary artery disease involving [place] coronary artery of [place] heart without angina pectoris (Primary Dx); Syncope, unspecified syncope type 12/13/2024 [employer] Post Discharge Follow up phone call [facility] Surgery Care 1 [place] [address] Annette Dubois 12/08/2024 Orders Only [facility] Cardiology 1 [place] [address] [place] 12/06/2024 2:18 PM CDT - 12/09/2024 1:35 PM CDT Hospital Encounter [facility] IMU 1 [place] [address] Peterson Ford MD Bross, MD Hang Nunn Supriya, MD Nikolic, MD Judy Chest pain, unspecified type (Primary Dx); Nausea and vomiting, unspecified vomiting type Discharge Disposition: Discharge to home or self care from Last 3 Months Surgical History Surgery Date Site/Laterality Comments OTHER SURGICAL HISTORY Tibal REDUCTION MAMMOPLASTY Breast Reduction TOTAL ABDOMINAL HYSTERECTOMY Hysterectomy, total CARDIAC CATHETERIZATION 07/19/2017 - 07/18/2018 Medical History Medical History Date Comments Chest pain Syncope Shortness of breath Diabetes mellitus (HCC) Coronary artery disease Carotid artery disease Ventricular tachycardia (HCC) Family History Medical History [...] drink = 0.6 oz pur e alcohol) [facility] Utilities Answer Date Recorded In the past 12 months has [employer], gas, oil, or water [employer] threatened to shut off services in your home? No 12/07/2024 Social Connection and Isolation Panel [NHANES] A nswer Date Recorded In a typical week, how many times do you talk on the phone with family, friends, or neighbors? Once a week 12/07/2024 How often do you get together with friends or re latives? Once a week 12/07/2024 How often do you attend zoroastrian or jainism serv ices? Never 12/07/2024 Do you belong to any clubs o r organizations such as zoroastrian groups, unions, fraternal or athletic groups, or [...] any time in the past 12 m [facility], were you homeless or living in a snf (including now)? No 12/07/2024 Personal Safety Answer Date Recorded Have you ever been in or are you currently in a harmful physical or emotional relationship or is someone making you feel afraid or unsafe? Denies 12/06/2024 Comments No Sex and Gender Information Value Date Recorded Sex Assigned at Not on file Legal Sex Female 12:36 PM GLASS BULB SILVERER Gender Identity Not on file Sexual Orientation [...] 12/22/2024 2:40 PM CDT Plan of Treatment Health Maintenance Due Date Last Done Comments Breast Cancer Screening-Mammogram 1955 Colon Cancer Screening-Colonoscopy 1955 Depression Screening 1955 Hepatitis C Screening 1955 Osteoporosis Screening-Bone Density Scan 1955 Dilated Eye Exam 1955 Foot Exam 1955 DTaP/Tdap/Td Vaccine (1 - Tdap) 1965 Hepatitis B Screening 1972 Pneumococcal vaccine 65+ (1 of 2 - PCV) 1973 Zoster Vaccine (1 of 2) 2004 Well Visit 65+ 12/03/2019 Albumin Creatinine Ratio, Urine 01/02/2021 0 Lipid Panel 08/25/2022 08/25/2021, 03/1 07/2020, 01/03/2020, Additional history exists Hemoglobin A1C 08/16/2024 02/14/2024, 01/03/2020 Influenza Vaccine (Season Ended) 2025 08/15/2019, 10/31/2017, 04/02/2015, Additional history exists Fall Risk Assessment 12/09/2025 12/09/2024 eGFR 12/09/2025 12/09/2024, 11/17, 12/06/2024, Additional history exists Medical Devices Implanted Type Area Last Waxer Device Identifier Shelf Expiration Date Model / Serial / Lot [employer] Lacie Synergy Xd Monorail 2.75mm 24mm 144cm Delivery System 1 Access [id number] - [id number] Implanted:Qty: 1 on 02/14/2024 by Davis Jerome MD at [facility] Stent [employer] Lacie 05/17/2025 [id number] / / [id number] [employer] Stent Coronary De Rx Cocr Xience Skypoint [id number] - [id number] Implanted:Qty: 1 on 02/14/2024 by Davis Jerome MD at [facility] [employer] 08/08/2026 [id number] 8 / / [id number] [employer] Lacie Stent Coronary Drug Eluting Rapid Exchange Synergy Xd [id number] [place] [employer] [id number] - [id number] Implanted:Qty: 1 on 02/14/2024 by Davis Jerome MD at [facility] Stent [employer] Lacie 10/04/2025 [id number] 350 / / [id number] [employer] [id number] Xience Alpine 2.75mm 15mm 145cm Rapid Exchange Radiopaque 1 - [id number] Implanted:Qty: 1 on 01/21/2018 by Ronal Barnes MD at [facility] [employer] 10/04/2020 [id number] 5 / / [id number] [employer] [id number] Xience Alpine 3.5mm 23mm 145cm Rapid Exchange Radiopaque 1 Access - [id number] Implanted:Qty: 1 on 01/21/2018 by Ronal Barnes MD at [facility] [employer] 06/18/2020 [id number] / / [id number] Procedures Procedure Name Priority Date/Time Associated Diagnosis [...] CDT LIPID PANEL Routine 08/25/2021 12:40 PM GLASS BULB SILVERER Mixed hyperlipidemia ALBUMIN CREATININE RATIO, URINE Routine 01/03/2020 2:56 PM CDT from Last 3 Months or Most Recently Relevant to Health Maintenance Results * POCT glucose (12/09/2024 11:55 AM CDT) Glucose, POC 180 70 - 199 mg/dL Blood 12/09/2024 11:5 5 AM CDT 12/09/2024 11:55 AM CDT us Judy Courtney MD LAB POCT ORDERABLES - DEVICE F inal Result [facility] ([place]) [address] [place] [address] * POCT glucose (12/09/2024 8:16 AM CDT) Glucose, POC 116 70 - 199 mg/dL Blood 12/09/2024 8:16 AM CDT 12/09/2024 8:16 AM CDT us Judy Courtney MD LAB POCT ORDERABLES - DEVICE F inal Result [facility] ([place]) 1 [place] [address] * (ABNORMAL) eGFR (12/09/2024 2:12 AM CDT) Pathologist [facility] eGFR 34(L) >=60 mL/min/1. 73 m2 Comment: [...] BLOOD ORDERABLES Final Resu lt [facility] ([place]) 1 [facility] [place] [address] * Differential, auto (12/09/2024 2:12 AM CDT) [...] Final Resu lt [facility] ([place]) 1 [facility] [employer] [place] [address] * (ABNORMAL) CBC with auto differential (12/09/2024 [...] Final Resu lt [facility] ([place]) [address] [facility] [place] [address] * (ABNORMAL) Comprehensive metabolic panel (12/09/2024 2:12 [...] BLOOD ORDERABLES Final Resu lt [facility] ([place]) 1 [facility] [place] [address] * POCT glucose (12/09/2024 2:00 AM CDT) Glucose, POC 175 70 - 199 mg/dL Blood 12/09/2024 2:00 AM CDT 12/09/2024 2:00 AM CDT Judy Courtney MD LAB POCT ORDERABLES - DEVICE F inal Result Performing Organization Address [facility] Co de Phone Number [facility] ([place]) 1 [facility] [place] [address] * (ABNORMAL) POCT glucose (12/08/2024 8:35 PM CDT) Glucose, POC 237(H) 70 - 199 mg/dL Blood 12/08/2024 8:35 PM CDT 12/08/2024 8:35 PM CDT Judy Courtney MD LAB POCT ORDERABLES - DEVICE F inal Result Performing Organization Address [facility] Co de Phone Number [facility] ([place]) 1 [facility] [place] [address] * POCT glucose (12/08/2024 5:08 PM CDT) Glucose, POC 93 70 - 199 mg/dL Blood 12/08/2024 5:08 PM CDT 12/08/2024 5:08 PM CDT Judy Courtney MD LAB POCT ORDERABLES - DEVICE F inal Result Performing Organization Address City/[facility]/ZIP Co de Phone Number [facility] ([place]) 1 [facility] [place] [address] * (ABNORMAL) Urinalysis reflex to microscopic and [...] tendency for uric acid stone formation. Source: [facility] [employer] Current Interpretive Data was last revised on [...] - GENERAL ORD ERABLES Final Result [facility] ([place]) 1 [facility] Department of Laboratories [place], [place] [id number] * (ABNORMAL) Urinalysis, microscopic only (12/08/2024 2:15 PM CDT) WBC, ur >50(A) 0 - 5 /HPF RBC, ur 3-5(A) 0 - 2 /HPF [facility] ([place]) Epithelial cells, squamous, ur 1-5 0 - 5 /HPF [facility] ([place] Bacteria, ur 3+(A) [facility] ([place]) Mucous, ur Present(A) [facility] ([place]) Culture Reflex Comment Reflex to urine culture will be performed. [facility] ([place]) Urine 12/08/2024 2:15 PM CDT 12/08/2024 2:26 PM CDT Judy Courtney MD LAB URINE ORDERABLES Final Res ult [facility] ([place]) 1 [facility] Department [place] [address] * (ABNORMAL) Urine culture Urine (12/08/2024 2:15 PM CDT) Report Final Report: Greater than or equal to 100,000 colonies/mL of Escherichia coli This is a non-standardized susceptibility test. (.) Comment:Testing performed by : [facility], 1 [facility] [place] [address] Organism ESCHERICHIA COLI [facility] ([place]) Urine 12/08/2024 2:15 PM CDT 12/08/2024 10:00 PM CDT Narrative [facility] ([place]) - 12/11/2024 2:53 PM CDT Urine culture reflexed based upon urinalysis results. Testing performed by [facility] ([phone]) Organism Antibiotic Method Susceptibility Escherichia coli Ampicillin [...] - GENERAL ORD ERABLES Final Result [facility] ([place]) 1 [facility] Department [place] [address] * POCT glucose (12/08/2024 12:19 PM CDT) Glucose, POC 163 70 - 199 mg/dL Blood 12/08/2024 12:1 9 PM CDT 12/08/2024 12:19 PM CDT us Judy Courtney MD LAB POCT ORDERABLES - DEVICE F inal Result Performing Organization Address City/[facility] Co de Phone Number [facility] ([place]) 1 [facility] [place] [address] * NM MPI SPECT (Rest and/or Stress) [...] Josie Redding M.D. FT: FT Report ID: [id number] Reading Location: [id number] Procedure Note Josie Enriquez MD - 12/08/2024 [...] Josie Redding M.D. FT: FT Report ID: [id number] Reading Location: [id number] Thomas Overton MD [facility] [place] PROCEDURES Final Result * Stress Test for Myocardial Perfusion (12/08/2024 9:05 AM CDT) Anatomical Region Laterality Modality Nuclear Medicine 12/08/2024 6:30 AM CDT Narrative 12/08/2024 9:18 AM CDT [address] [address] [employer] Report Patient Name: THALIA MICHELLE A : 1955 Study Date: 12/08/2024 6:30:00 AM Gender: F Tech: Aj Roberto Location: [address] Provider: THOMAS OVERTON Height(Cm): 170 BSA: 2.6 [...] Procedure Note Yumi Bull MD - 12/08/[address] [place] [address] [employer] Report Patient Name: THALIA MICHELLE A : 1955 Study Date: 12/08/2024 6:30:00 AM Gender: F Tech: Aj Roberto Location: [id number] Ref Provider: THOMAS OVERTON Height(Cm): 170 BSA: [...] - DEVICE F inal Result [facility] ([place]) 1 [facility] [place] [address] * POCT glucose (12/08/2024 2:08 AM CDT) Glucose, POC 141 70 - 199 mg/dL Blood 12/08/2024 2:08 AM CDT 12/08/2024 2:08 AM CDT us Thomas Overton MD LAB POCT ORDERABLES - DEVICE Fi nal Result Performing Organization Address City/[facility]/ZIP Co de Phone Number [facility] ([place]) 1 [facility] [place] [address] * (ABNORMAL) eGFR (12/08/2024 2:06 AM CDT) [...] BLOOD ORDERABLES Final Resu lt [facility] ([place]) 1 [facility] Department [place] [address] * Differential, auto (12/08/2024 2:06 AM CDT) Neutrophil abs 2.65 1.50 - 6.50 K/cumm Imm gran abs 0.01 0.00 - 0.10 K/cumm [facility] ([place]) Lymphocyte abs 2.18 0.80 - 3.30 K/cumm [facility] ([place]) Monocyte abs 0.47 0.20 - 0.80 K/cumm [facility] ([place]) Eosinophil abs 0.12 0.00 - 0.50 K/cumm [facility] ([place]) Basophil abs 0.02 0.00 - 0.10 K/cumm [facility] ([place]) Neutrophil pct 48.6 % [facility] ([place]) Comment: Interpretive Data Percent cell count reference [...] 2017. Monocyte pct 8.6 % [facility] ([place]) Comment: Interpretive Data Percent cell count reference ranges are not reported, since discordance with absolute values may lead to misinterpretation of CBC data. Current Interpretive Data was last revised on 2017. Eosinophil pct 2.2 % [facility] ([place]) Comment: Interpretive [...] Final Resu lt [facility] ([place]) 1 [facility] [place] [address] * (ABNORMAL) CBC with auto differential (12/08/2024 [...] Final Resu lt [facility] ([place]) 1 [facility] [place] [address] * Magnesium (12/08/2024 2:06 AM CDT) Magnesium 1.8 1.4 - 2.5 mg/dL Blood 12/08/2024 2:06 AM CDT 12/08/2024 3:11 AM CDT Glenn Broussard MD LAB BLOOD ORDERABLES Final Resu lt Performing Organization Address [facility] de Phone Number [facility] ([place]) 1 [facility] [place] [address] * (ABNORMAL) Comprehensive metabolic panel (12/08/2024 2:06 AM CDT) Sodium 141 135 - 145 mmol/L Potassium, pl 4.4 3.3 - 4.9 mmol/L [facility] ([place]) Chloride 107 97 - 110 mmol/L [facility] CO2 22 22 - 32 mmol/L [facility] ([place]) Anion gap 12 2 - 15 mmol/L [facility] ([place]) BUN 28(H) 6 - 25 mg/dL [facility] ([place]) Creatinine 1.86(H) 0.60 - 1.10 mg/dL [facility] ([place]) Glucose 130 70 - 199 mg/dL [facility] ([place]) [...] BLOOD ORDERABLES Final Resu lt [facility] ([place]) 1 [facility] [employer] [place] [address] * POCT glucose (12/07/2024 8:39 PM CDT) Glucose, POC 169 70 - 199 mg/dL Blood 12/07/2024 8:39 PM CDT 12/07/2024 8:39 PM CDT Thomas Overton MD LAB POCT ORDERABLES - DEVICE Fi nal Result Performing Organization Address [facility]/ZIP Co de Phone Number [facility] 1 [facility] [employer] [place] [address] * POCT glucose (12/07/2024 5:05 PM CDT) Glucose, POC 154 70 - 199 mg/dL Blood 12/07/2024 5:05 PM CDT 12/07/2024 5:05 PM CDT us Thomas Overton MD LAB POCT ORDERABLES - DEVICE Fi nal Result [facility] ([address] [place] [address] * TRANSTHORACIC ECHO (TTE) COMPLETE W DOPPLER/CF WO CONTRAST (12/07/2024 12:24 PM CDT) Estimated EF 60-70 % CONS SCIMAGE EF Mod BP 52 % CONS SCIMAGE Anatomical Region Laterality Modality Ultrasound 12/07/2024 11:0 2 AM CDT Narrative 12/07/2024 1:15 PM CDT [address] [address] Echocardiogram Report Patient Name: THALIA MICHELLE : 1955 Study Date: 12/07/2024 11:02:16 AM Gender: F Tech: COORDINATE MEASURING MACHINE OPERATOR Location: [id number] Ref Provider: GLENN BROUSSARD Height(Cm): 170 BSA: [...] Procedure Note Bela Ponce MD - 12/07/2024 [place] [address] Echocardiogram Report Patient Name: THALIA MICHELLE : 1955 Study Date: 12/07/2024 11:02:16 AM Gender: F Tech: SUSAN Location: [address] Provider: GLENN BROUSSARD Height(Cm): 170 BSA: 1.75 [...] - DEVICE Fi nal Result [facility] [place]) 1 [facility] [employer] [place] [address] * POCT glucose (12/07/2024 7:37 AM CDT) Glucose, POC 108 70 - 199 mg/dL Blood 12/07/2024 7:37 AM CDT 12/07/2024 7:37 AM CDT us Thomas Overton MD LAB POCT ORDERABLES - DEVICE Fi nal Result [facility] ([place]) 1 [facility] [place] [address] * (ABNORMAL) Drugs of Abuse Screen, Urine with Reflex Confirmation (12/07/2024 6:30 AM CDT) Pathologist [facility] Amphetamine, ur Not Detected CutOff 500ng/mL Comment: [...] Benzodiazepines, ur Not Detected CutOff 100ng/mL [facility] ([place]) Comment: Interpretive Data - Benzodiazepines: Samples containing greater than 100 ng/mL nordiazepam or other cross-reacting compounds are reported as positive. False positive and false negative results are possible. Confirmatory testing required for definitive results. Current Interpretive Data was last reviewed 2023. Cannabinoids, ur Screen Positive, presumptive (A) CutOff 50 ng/mL [facility] ([place]) Comment: Interpretive Data - Cannabinoids: Samples containing greater than 50 ng/mL delta-9 THC -COOH or other cross- reacting compounds are reported as positive. False positive and false negative results are possible. Confirmatory testing required for definitive results. Current Interpretive Data was last reviewed 2023. Cocaine, ur Not Detected CutOff 150ng/mL [facility] ([place]) Comment: Interpretive Data - Cocaine: Samples [...] 12/07/2024 6:41 AM CDT Narrative [facility] ([place]) - 12/07/2024 7:04 AM CDT Drug of Abuse screening is performed by immunoassay for medical purposes only. This is not to be used for Pain Management purposes. If Detected, confirmation testing will be performed for Amphetamines, Cocaine, Fentanyl, Methadone, Opiates, Oxycodone or Phencyclidine. Glenn Broussard MD LAB URINE ORDERABLES Final Resu lt [facility] ([place]) [address] [place] [address] [place] [address] * POCT glucose (12/07/2024 1:45 AM CDT) Glucose, POC 109 70 - 199 mg/dL Blood 12/07/2024 1:45 AM CDT 12/07/2024 1:45 AM CDT Thalia Hill MD LAB POCT ORDERABLES - DEV ICE Final Result Performing Organization Address [facility] Co de Phone Number [facility] ([place]) [address] [place] [address] [place] [address] * POCT glucose (12/06/2024 8:13 PM CDT) Glucose, POC 129 70 - 199 mg/dL Blood 12/06/2024 8:13 PM CDT 12/06/2024 8:13 PM CDT Thalia Hill MD LAB POCT ORDERABLES - DEV ICE Final Result Performing Organization Address City/[facility]/ZIP Co de Phone Number [facility] ([place]) [address] [place] [address] [place] [address] * POCT glucose (12/06/2024 6:52 PM CDT) Glucose, POC 92 70 - 199 mg/dL Blood 12/06/2024 6:52 PM CDT 12/06/2024 6:52 PM CDT Thalia Hill MD LAB POCT ORDERABLES - DEV ICE Final Result Performing Organization Address [facility] Co de Phone Number [facility] ([place]) 1 [facility] [place] [address] * Troponin T high-sensitivity 4-hour (12/06/2024 5:42 PM CDT) Trop T hs 13 <=14 ng/L Comment: Interpretive Data For further hscTnT resources including the diagnostic algorithm and an aid in interpretation, copy and paste this link: https://nrl.testcatalog.org/show/hsTrop Current Interpretive Data last revised 2020. Trop T hs delta -3 ng/L [facility] ([place]) Trop T hs interp Insignificant [facility] ([place]) Blood 12/06/2024 5:42 PM CDT 12/06/2024 5:56 PM CDT Lexx Wall MD LAB BLOOD ORDERABLES Final Res ult Performing Organization Address [facility] Co de Phone Number [facility] ([place]) 1 [facility] [place] [address] * CT Chest Abdomen Pelvis WO Contrast [...] Burak Esquivel M.D. MM: MM Report ID: [id number] Reading Location: [place] [address] Procedure Note Burak Esquivel MD - 12/06/2024 [...] Burak Esquivel M.D. MM: MM Report ID: [id number] Reading Location: [place] [address] us Peterson Ford MD IMG CT PROCEDURES Final [...] Burak Esquivel M.D. MM: MM Report ID: [id number] Reading Location: [id number] Procedure Note Burak Esquivel MD - 12/06/2024 [...] Burak Esquivel M.D. MM: MM Report ID: [id number] Reading Location: [id number] us Peterson Ford MD IMG XR PROCEDURES Final [...] ORDERABLES Final R esult Performing Organization Address City/[facility]/ZIP Co de Phone Number [facility] ([place]) 1 [facility] [place] [address] * (ABNORMAL) eGFR (12/06/2024 12:57 PM CDT) eGFR 31(L) >=60 mL/min/1. 73 m2 Comment: [...] ORDERABLES Final R esult Performing Organization Address City/[facility]/ZIP Co de Phone Number [facility] ([place]) 1 [facility] [place] [address] * Differential, auto (12/06/2024 12:57 PM CDT) Neutrophil abs 5.16 1.50 - 6.50 K/cumm Imm gran abs 0.03 0.00 - 0.10 K/cumm [facility] ([place]) Lymphocyte abs 2.22 0.80 - 3.30 K/cumm [facility] ([place]) Monocyte abs 0.63 0.20 - 0.80 K/cumm [facility] ([place]) Eosinophil abs 0.12 0.00 - 0.50 K/cumm [...] 2017. Basophil pct 0.5 % [facility] ([place]) Comment: Interpretive Data Percent cell count reference ranges are not reported, since discordance with absolute values may lead to misinterpretation of CBC data. Current Interpretive Data was last revised on 2017. Blood 12/06/2024 12:5 7 PM CDT 12/06/2024 1:01 PM CDT us Peterson Ford MD LAB BLOOD ORDERABLES Final R esult [facility] ([place]) 1 [facility] [place] [address] * (ABNORMAL) Pro B-type natriuretic peptide (12/06/2024 [...] as advanced age. - References: 1. Roby LYNCH et.al. Eur Heart J. 2006:27:330-337. 2. Brandon RW, Lawrence WOOD. J. AM Mando Cardiol: Cardiovasc Imag. 2009;2: 216- 225. Interpretive Data Last Revised Date: 2018. Blood 12/06/2024 12:5 7 PM CDT 12/06/2024 3:06 PM CDT us Peterson Ford MD LAB BLOOD ORDERABLES Final R esult [facility] ([place]) 3 [facility] [place] [address] * (ABNORMAL) CBC with auto differential (12/06/2024 12:57 PM CDT) WBC 8.20 3.80 - 9.90 K/cumm Hgb [...] RDW SD 47.9 35.7 - 48.1 fL [facility] NRBC abs 0.00 0.00 - 0.01 K/cumm [facility] ([place]) Blood Venous blood specimen / Unknown 12/06/2024 12:57 PM CDT 12/06/2024 1:01 PM CDT Peterson Ford MD LAB BLOOD ORDERABLES Final R esult Performing Organization Address City/[facility]/ZIP Co de Phone Number [facility] ([place]) 1 [facility] [employer] [place] [address] * Magnesium (12/06/2024 12:57 PM CDT) Magnesium 1.8 1.4 - 2.5 mg/dL Blood 12/06/2024 12:5 7 PM CDT 12/06/2024 3:06 PM CDT Peterson Ford MD LAB BLOOD ORDERABLES Final R esult [facility] ([place]) 1 [facility] [employer] [place] [address] * (ABNORMAL) Comprehensive metabolic panel (12/06/2024 12:57 [...] LAB BLOOD ORDERABLES Final R esult [facility] ([place]) 1 [facility] [place] [address] * ECG 12 lead (12/06/2024 12:52 PM CDT) 12/06/2024 12:5 2 PM CDT Narrative [facility] - 12/06/2024 2:42 PM CDT Vent Rate: 76 bpm RR Interval: 784 msec PA Interval: 171 msec QRS Duration: 86 msec QT Interval: 389 msec QTC Interval: 419 msec P-R-T [place]: 73 - 73 - 46 degrees IMPRESSION: SINUS RHYTHM LOW QRS VOLTAGE IN PRECORDIAL LEADS [QRS DEFLECTION < 1.0 mV IN CHEST LEADS] BORDERLINE ECG NO CHANGE FROM PREVIOUS TRACING NOTED Electronically Signed By: Ronal Barnes MD Peterson Ford MD ECG ORDERABLES Final Result Performing Organization Address [facility] Phone Number [employer] [facility] * (ABNORMAL) Hemoglobin A1c (02/14/2024 10:44 PM CDT) Hgb A1C 5.9(H) 4.0 - 5.6 % Estimated Average Glucose 123 mg/dL KONG MEREDITH (RADHA) Comment: The ADA recommends reporting an estimated Average Glucose (eAG) with all Hemoglobin A1c results using the equation derived from a study of 507 normal and diabetic adults. Minority populations were underrepresented and children were not included. (Diabetes Care 31:6529-7942, 2008). The eAG is not equivalent to a fasting glucose. Blood 02/14/2024 10:4 4 PM CDT 02/14/2024 10:47 PM CDT Davis Jerome MD LAB BLOOD ORDERABLES Final Result Performing Organization Address [facility] Co de Phone Number KONG MEREDITH (RADHA) 1 [facility] [employer] [place] [place] [address] * (ABNORMAL) Lipid panel (08/25/2021 12:40 PM [employer] [employer]ILVERER) Pathologist [facility] Cholesterol 143 30 - 199 mg/dL KONG [...] MASOUD (RADHA) Blood 08/25/2021 12:4 0 PM [employer] 08/25/2021 12:52 PM [employer] Rosemarie Petersen COORDINATE MEASURING MACHINE OPERATOR LAB BLOOD ORDERABLES Final Result KONG MEREDITH ([place]) 1 [facility] [place] [address] * Albumin Creatinine Ratio, Urine (01/03/2020 2:56 PM CDT) Albumin Ur 36.9 mg/L KONG AM H (RADHA) Comment: Interpretive Data No reference range established. Current interpretive data was last revised 2018. Testing performed by: [facility], [address] [place] [address], [place]., [id number] Creatinine Ur 231.4 mg/dL KONG MEREDITH (RADHA) Comment: Interpretive Data No reference range established. Current interpretive data was last revised 2018. Testing performed by: [facility], [address] [place] [address]., [id number] Albumin Creatinine Ratio, Ur 16 1 - 29 mg/g KONG MEREDITH (RADHA) Comment:Testing performed by : [facility], [address] [place] [address], [place]., [address] Urine 01/03/2020 2:56 PM CDT 01/04/2020 9:31 AM CDT Denys Stern DO LAB URINE ORDERABLES Anabell yung Result KONG MEREDITH ([place]) 1 [facility] Department of Laboratories [place], [place] [id number] from Last 3 Months or Most Recently Relevant to Health Maintenance Insurance [facility] Advance Directives For more information, please contact: [phone] * Full Code (Latest Code Status on [...] 12:07 AM 01/22/2018 12:39 AM Care Teams Manager Management Relationship Specialty Start Date End Date Teri Tirado NP [address] [place] [id number] PCP - General Nurse Practitioner 04/28/24
[2024-12-28 20:37] LABS: Vitamin D 25 Hydroxy 36.5 ng/mL
[2024-12-28 21:14] LABS: Alanine Aminotransferase 14 U/L (6-35); Albumin Level 4.7 g/dL (3.5-5.1); Alkaline Phosphatase 59 U/L (38-126); Anion Gap 10 mmol/L (4-12); Aspartate Amino Transferase 38 U/L (14-36); Bilirubin,Total 0.4 mg/dL (0.2-1.3); Blood Urea Nitrogen 35 mg/dL (7-17); Calcium 10.1 mg/dL (8.4-10.2); Carbon Dioxide 24 mmol/L (22-30); Chloride 105 mmol/L (98-107); Cholesterol 200 mg/dL (0-200); Estimated Glomerular Filt Rate 27; Glucose 175 mg/dL (65-110); HDL Direct 43 mg/dL; Potassium 4.4 mmol/L (3.4-5.0); Sodium 139 mmol/L (137-145); Total Protein 8.6 g/dL (6.3-8.2); Triglycerides 167 mg/dL (<150)
[2024-12-28 21:25] LABS: LDL Cholesterol Direct 94 mg/dL
[2024-12-28 21:42] LABS: Hemoglobin A1C 5.6 % (<5.7)
== END 2024-12-28 13:52 | disposition home or self-care (01) ==
LOC: ANHBWCLAB 13:52
PROVIDERS: PCP Nurse Practitioner Adult Health; Visit Provider Nurse Practitioner Adult Health
DX: E11.9 Type 2 diabetes mellitus without complications (principal); E55.9 Vitamin D deficiency, unspecified
CPT/HCPCS: 36415; 80053; 80061; 82306; 82565; 83036